=== PATIENT | female | born 1960 | race Caucasian/White ===

== ENCOUNTER 2018-07-10 12:33 | Emergency (ER) | payer MEDICARE, OTHER ==
[2018-07-10] MEDS ORDERED: SODIUM CHLORIDE 0.9% 1,000 ML IV STA (12:45)
[2018-07-10] MEDS ORDERED: LORazepam 2 MG/ML INJ IV STA (12:45)
[2018-07-10 13:04] VITALS: TEMP 98.3
--- NOTE | 2018-07-10 13:13 | ED ---
Seizure HPI - General Chief Complaint: Seizure Stated Complaint: Med withdrawals Time Seen by Provider: 07/10/18 12:36 Source: patient, EMS, RN notes reviewed Mode of arrival: EMS Limitations: altered mental status - History of Present Illness Initial Comments: 57-year-old female presents emergency department via EMS for tremoring, possible medication reaction, possible seizure. Patient is altered, confused at this time. Patient reportedly was seen at [facility] on the weekend for a seizure. Patient unable to provide information at this time as she presented post ictal, seizure. Patient reportedly does have a history of alcohol or drug abuse. Unclear what medications she is currently taking. - Related Data Home Medications Medication Instructions Recorded Confirmed Dextroamphetamine/Amphetamine 20 mg PO QAM 07/10/18 07/10/18 [Adderall Xr] Gabapentin 800 mg PO TID 07/10/18 07/10/18 Levothyroxine Sodium [Synthroid] 112 mcg PO DAILY 07/10/18 07/10/18 OXcarbazepine [Trileptal] 150 mg PO BID 07/10/18 07/10/18 Spironolactone 50 mg PO DAILY 07/10/18 07/10/18 Allergies Allergy/AdvReac Type Severity Reaction Status Date / Time No Known Allergies Allergy Unverified 07/10/18 13:55 Review of Systems ROS Statement: Those systems with pertinent positive or pertinent negative responses have been documented in the HPI. ROS Other: All systems not noted in ROS Statement are negative. Past Medical History Past Medical History: Thyroid Disorder Additional Past Medical History / Comment(s): anxiety History of Any Multi-Drug Resistant Organisms: Unobtainable Past Surgical History: Unable to Obtain Past Psychological History: Unable to Obtain Smoking Status: Current every day smoker Past Alcohol Use History: Daily Past Drug Use History: None Reported General Exam Limitations: altered mental status (Postictal) General appearance: alert, in no apparent distress Head exam: Present: atraumatic, normocephalic, normal inspection Eye exam: Present: normal appearance, PERRL, EOMI. Absent: scleral icterus, conjunctival injection, periorbital swelling ENT exam: Present: normal exam, normal oropharynx, mucous membranes moist, TM's normal bilaterally Neck exam: Present: normal inspection, full ROM. Absent: tenderness, meningismus, lymphadenopathy Respiratory exam: Present: normal lung sounds bilaterally. Absent: respiratory distress, wheezes, rales, rhonchi, stridor Cardiovascular Exam: Present: regular rate, normal rhythm, normal heart sounds. Absent: systolic murmur, diastolic murmur, rubs, gallop, clicks GI/Abdominal exam: Present: soft, normal bowel sounds. Absent: distended, tenderness, guarding, rebound, rigid Neurological exam: Present: alert, other (Repeat neuro exam was performed after patient was orientated. Patient is awake alert and oriented 3 cranial nerves II through XII intact, finger to nose intact without over shooting). Absent: oriented X3, CN II-XII intact Skin exam: Present: warm, dry, intact, normal color. Absent: rash Course Vital Signs 07/10/18 07/10/18 07/10/18 12:45 13:54 14:00 Temperature 98.3 F Pulse Rate 67 87 86 Respiratory 18 18 17 Rate Blood Pressure 198/90 140/79 O2 Sat by Pulse 94 L 93 L Oximetry - Reevaluation(s) Reevaluation #1: 07/10/18 16:01 I did discuss patient's history with PCP who states that she does have a history of hypertension, hypothyroidism and alcohol abuse. She states that there is no history of seizures though she believes that she may have had alcohol withdrawal in the past. Patient is off-and-on was seen her PCP secondary to insurance reasons. She states Frequently that her thyroid levels are off secondary to medication noncompliance. Patient does have a history of psychiatric disorders. Medical Decision Making - Medical Decision Making 57-year-old female presented for seizure, tremoring. Patient did have tonic clonic seizure in the emergency department. I did discuss the case with her PCP no history of seizures she does have a history of hypothyroidism, hypertension and alcohol abuse though the patient states she has been sober. Patient case discussed with Dr. horowitz on-call for Dr. Chappell who recommends the patient to be transferred for neurology evaluation. Patient is started on Keppra at this time. - Lab Data Result diagrams: 07/10/18 13:13 07/10/18 13:13 Lab Results 07/10/18 07/10/18 07/10/18 Range/Units 13:13 13:13 15:53 WBC 7.1 (3.8-10.6) k/uL RBC 4.36 (3.80-5.40) m/uL Hgb 13.8 (11.4-16.0) gm/dL Hct 43.7 (34.0-46.0) % MCV 100.4 H (80.0-100.0) fL MCH 31.6 (25.0-35.0) pg MCHC 31.5 (31.0-37.0) g/dL RDW 14.0 (11.5-15.5) % Plt Count 344 (150-450) k/uL Neutrophils % 67 % Lymphocytes % 20 % Monocytes % 5 % Eosinophils % 3 % Basophils % 1 % Neutrophils # 4.8 (1.3-7.7) k/uL Lymphocytes # 1.4 (1.0-4.8) k/uL Monocytes # 0.4 (0-1.0) k/uL Eosinophils # 0.2 (0-0.7) k/uL Basophils # 0.0 (0-0.2) k/uL Macrocytosis Slight Sodium 139 (137-145) mmol/L Potassium 4.4 (3.5-5.1) mmol/L Chloride 106 (98-107) mmol/L Carbon Dioxide 18 L (22-30) mmol/L Anion Gap 15 mmol/L BUN 8 (7-17) mg/dL Creatinine 0.63 (0.52-1.04) mg/dL Est GFR (CKD-EPI)AfAm >90 (>60 ml/min/1.73 sqM) Est GFR (CKD-EPI)NonAf >90 (>60 ml/min/1.73 sqM) Glucose 95 (74-99) mg/dL Calcium 10.2 (8.4-10.2) mg/dL Total Bilirubin 0.5 (0.2-1.3) mg/dL AST 19 (14-36) U/L ALT 13 (9-52) U/L Alkaline Phosphatase 87 (38-126) U/L Total Protein 7.3 (6.3-8.2) g/dL Albumin 4.3 (3.5-5.0) g/dL Urine Color Yellow Urine Appearance Turbid H (Clear) Urine pH 6.0 (5.0-8.0) Ur Specific [place] 1.020 (1.001-1.035) Urine Protein 1+ H (Negative) Urine Glucose (UA) Negative (Negative) Urine Ketones Negative (Negative) Urine Blood Negative (Negative) Urine Nitrite Negative (Negative) Urine Bilirubin Negative (Negative) Urine Urobilinogen <2.0 (<2.0) mg/dL Ur Leukocyte Esterase Trace H (Negative) Urine RBC 2 (0-5) /hpf Urine WBC 7 H (0-5) /hpf Ur Squamous Epith Cells 54 H (0-4) /hpf Hyaline Casts 6 H (0-2) /lpf Urine Mucus Rare H (None) /hpf Phenytoin <3.0 ug/mL Valproic Acid <10.0 ug/mL Carbamazepine <3.0 ug/mL [place] <0.2 mmol/L Serum Alcohol <10 mg/dL Disposition Clinical Impression: Seizures Disposition: OTHER INSTITUTION NOT DEFINED Condition: Stable Referrals: None,Stated [REFERRING] - 1-2 days - Out of Hospital Transfer - Req. Specs Out of Hospital Transfer - Requested Specifics: Other Emergency Center ( [facility])
--- NOTE | 2018-07-10 13:38 | CT ---
EXAMINATION TYPE: CT brain wo con DATE OF EXAM: 07/10/2018 HISTORY: Headache and seizure activity. CT DLP: 1083.4 mGycm. Automated Exposure Control for Dose Reduction was Utilized. TECHNIQUE: CT scan of the head is performed without contrast. COMPARISON: None. FINDINGS: There is no acute intracranial hemorrhage or midline shift identified. Ventricles and sul ci are within normal limits in size for patient's age. Sifuentes-white matter differentiation is preserve d. Cerebellar tonsils are slightly low-lying but not greater than 5 mm inferiorly descended into the foramen magnum. The globes are intact and the visualized sinuses are clear. IMPRESSION: No acute intracranial hemorrhage or midline shift.
[2018-07-10 13:55] LABS: ALT 13 U/L (9-52); AST 19 U/L (14-36); Albumin 4.3 g/dL (3.5-5.0); Alcohol <10 mg/dL; Alkaline Phosphatase 87 U/L (38-126); Anion Gap 15 mmol/L; Blood Urea Nitrogen 8 mg/dL (7-17); Calcium 10.2 mg/dL (8.4-10.2); Carbamazepine (Tegretol) <3.0 ug/mL; Carbon Dioxide 18 mmol/L (22-30); Chloride 106 mmol/L (98-107); Glucose 95 mg/dL (74-99); Lithium <0.2 mmol/L; Phenytoin (Dilantin) <3.0 ug/mL; Potassium 4.4 mmol/L (3.5-5.1); Sodium 139 mmol/L (137-145); Total Bilirubin 0.5 mg/dL (0.2-1.3); Total Protein 7.3 g/dL (6.3-8.2)
[2018-07-10 13:58] LABS: Valproic Acid (Depakene) <10.0 ug/mL
[2018-07-10 14:00] LABS: Basophils % (A) 1 %; Eosinophils # (A) 0.2 k/uL (0-0.7); Eosinophils % (A) 3 %; HCT 43.7 % (34.0-46.0); HGB 13.8 gm/dL (11.4-16.0); Lymphocytes # (A) 1.4 k/uL (1.0-4.8); Lymphocytes % (A) 20 %; MCH 31.6 pg (25.0-35.0); MCHC 31.5 g/dL (31.0-37.0); MCV 100.4 fL (80.0-100.0); Macrocytosis Slight; Mean Platelet Volume 6.5; Monocytes # (A) 0.4 k/uL (0-1.0); Monocytes % (A) 5 %; Neutrophils # (A) 4.8 k/uL (1.3-7.7); Neutrophils % (A) 67 %; Platelet Count 344 k/uL (150-450); RBC 4.36 m/uL (3.80-5.40); WBC 7.1 k/uL (3.8-10.6)
[2018-07-10 16:12] LABS: Appearance,Urine Turbid (Clear); Bilirubin,Urine Negative (Negative); Blood,Urine Negative (Negative); Color,Urine Yellow; Glucose,Urine (UA) Negative (Negative); Hyaline Casts,Urine 6 /lpf (0-2); Ketones,Urine Negative (Negative); Leukocyte Esterase,Urine Trace (Negative); Mucus,Urine Rare /hpf; Nitrite,Urine Negative (Negative); Protein,Urine 1+ (Negative); RBC,Urine 2 /hpf (0-5); Squamous Epithelial Cell,Urine 54 /hpf (0-4); Urobilinogen,Urine <2.0 mg/dL (<2.0); WBC,Urine 7 /hpf (0-5)
[2018-07-10 16:18] LABS: Amphetamine Screen,Urine Detected (NotDetected); Barbiturate Screen,Urine Not Detected (NotDetected); Benzodiazepines Screen,Urine Detected (NotDetected); Cocaine Screen,Urine Not Detected (NotDetected); Methadone Screen, Urine Not Detected (NotDetected); Opiate Screen,Urine Not Detected (NotDetected); Oxycodone Screen, Urine Not Detected (NotDetected); Phencyclidine Screen,Urine Not Detected (NotDetected); Tricyclic Antidepressant,Urine Not Detected (NotDetected); Urn Cannabinoid Scrn Detected (NotDetected)
[2018-07-10] MEDS ORDERED: levETIRAcetam IV 1,000 MG in SALINE 1 100ML.BAG IVPB STA (16:18)
[2018-07-10 17:09] LABS: T4, Free (Free Thyroxine) 1.06 ng/dL (0.78-2.19)
[2018-07-10 17:21] VITALS: BP 113/69; PULSE 78; RESP 18
== END 2018-07-10 17:39 | disposition other institution (70) ==
LOC: EC 12:33
DX: R56.9 Unspecified convulsions (principal); I10 Essential (primary) hypertension; E03.9 Hypothyroidism, unspecified; F17.200 Nicotine dependence, unspecified, uncomplicated; Z91.14 Patient's other noncompliance with medication regimen; Z79.890 Hormone replacement therapy; Z79.899 Other long term (current) drug therapy
CPT/HCPCS: 36415; 84439; 80156; 80164; 80053; 84443; 80185; 80178; 85025; 81001; 80306; 70450; 99285; 96374; 96375; 96361; G0480; J2060; J1953; 80320

== ENCOUNTER 2022-07-04 18:58 | Emergency (ER) | payer MEDICARE ==
[2022-07-04 19:11] VITALS: TEMP 97.9
[2022-07-04] MEDS ORDERED: fentaNYL (PF) 50 MCG/ML 2 ML AMP IVP STA (19:12)
--- NOTE | 2022-07-04 20:07 | XR ---
EXAMINATION TYPE: XR femur RT, XR knee limited RT DATE OF EXAM: 07/04/2022 CLINICAL HISTORY: Fall injury with pain TECHNIQUE: Two views of the right leg and knee are obtained. COMPARISON: None. FINDINGS: Overlying board artifact is seen. There is acute comminuted displaced fracture of the dista l femoral metadiaphysis with fracture extending into the proximal component of the metallic right kne e prosthesis. Distal fracture fragments are impacted along with anteriorly and medially angulated. Th ere is fat fluid level in the suprapatellar joint space noted. No additional acute fractures are clearly seen in the proximal to mid femur or visualized tibia and p roximal fibula. IMPRESSION: As above.
--- NOTE | 2022-07-04 20:10 | CT ---
EXAMINATION TYPE: CT brain jacintoine wo con DATE OF EXAM: 07/04/2022 COMPARISON: CT brain July 10, 2018 HISTORY: Fall from standing up, no LOC. CT DLP: 1379.7 mGycm. Automated Exposure Control for Dose Reduction was Utilized. TECHNIQUE: CT scan of the head and cervical spine are performed without contrast. FINDINGS: There is no acute intracranial hemorrhage or midline shift identified. Mild ventricular a nd sulcal prominence. Sifuentes-white matter differentiation fairly well preserved. The calvarium is intac t. Paranasal sinuses are clear. Cervical spine is visualized in its entirety from C1 through upper thoracic levels and demonstrates d extroconvex scoliosis centered in the upper to mid thoracic spine without evidence of acute fracture or dislocation. Prevertebral soft tissue appears within normal limits. The C1-C2 articulation is wi thin normal limits on the coronal images. Vertebral body heights are maintained. Mild to moderate di sc space narrowing C5-C6 and C6-C7 levels with moderate anterior spurring is present. Review of axial images shows no apical pneumothorax. Thyroid gland is small in size. Prominent but subcentimeter lef t supraclavicular lymph nodes are seen. Correlate clinically. IMPRESSION: 1. There is no acute fracture or dislocation evident in the cervical spine. 2. No acute intracranial hemorrhage or midline shift is seen.
[2022-07-04] MEDS ORDERED: HYDROmorphone 1 MG/ML 1 ML SYRINGE IVP STA ×4 (20:12→22:47)
[2022-07-04] MEDS ORDERED: MIDAZOLAM 1 MG/ML 5 ML VIAL IV STA (21:05)
--- NOTE | 2022-07-04 21:35 | ED ---
General Adult HPI - General Chief complaint: Fall Stated complaint: fall, femur fracture Time Seen by Provider: 07/04/22 18:59 Source: patient, EMS Mode of arrival: EMS Limitations: no limitations - History of Present Illness Initial comments: This is a 61-year-old female that was sent into the department via EMS for a fall. The patient stated that she fell while slipping and landed on her right knee causing her right lower extremity to be angulated out 90 lateral to her body. The patient stated that she had significant extreme pain in the right k nee and did hit her head but did not lose consciousness. The patient stated she had significant extreme pain in the right knee. The patient did not have any difficulties with sensation and denied any numbness or tingling. The patient was resting in bed in significant distress secondary to right knee pain. - Related Data Home Medications Medication Instructions Recorded Confirmed Dextroamphetamine/Amphetamine 40 mg PO DAILY 07/10/18 07/04/22 [Adderall Xr] Gabapentin 800 mg PO TID 07/10/18 07/04/22 Levothyroxine Sodium [Synthroid] 112 mcg PO DAILY 07/10/18 07/04/22 OXcarbazepine [Trileptal] 150 mg PO BID 07/10/18 07/04/22 Albuterol Sulfate [Albuterol 2 puff PO RT-Q6H PRN 07/04/22 07/04/22 Sulfate Hfa] Escitalopram Oxalate [Lexapro] 20 mg PO DAILY 07/04/22 07/04/22 clonazePAM [KlonoPIN] 0.5 mg PO DAILY PRN 07/04/22 07/04/22 lisinopriL [Prinivil] 20 mg PO DAILY 07/04/22 07/04/22 traZODone HCL 300 mg PO HS 07/04/22 07/04/22 Allergies Allergy/AdvReac Type Severity Reaction Status Date / Time No Known Allergies Allergy Unverified 07/10/18 13:55 Review of Systems ROS Statement: Those systems with pertinent positive or pertinent negative responses have been documented in the HPI. ROS Other: All systems not noted in ROS Statement are negative. Past Medical History Past Medical History: Hypertension, Thyroid Disorder Additional Past Medical History / Comment(s): anxiety History of Any Multi-Drug Resistant Organisms: Unobtainable Past Surgical History: Unable to Obtain, Orthopedic Surgery Past Psychological History: Anxiety, Bipolar, Depression Smoking Status: Current every day smoker Past Alcohol Use History: Daily, Rare Past Drug Use History: None Reported General Exam Limitations: no limitations General appearance: alert, in distress (Secondary to right knee pain) Head exam: Present: atraumatic, normocephalic Eye exam: Present: normal appearance, PERRL Pupils: Present: normal accommodation ENT exam: Present: normal exam, normal oropharynx, mucous membranes moist Neck exam: Present: normal inspection, full ROM Respiratory exam: Present: normal lung sounds bilaterally Cardiovascular Exam: Present: regular rate, normal rhythm, normal heart sounds GI/Abdominal exam: Present: soft, normal bowel sounds Extremities exam: Present: other (Deformity noted to the right knee with crepitus and tenderness of patient to the possible portion of the right knee. Decreased range of motion secondary to pain.) Back exam: Present: normal inspection, full ROM Neurological exam: Present: alert, oriented X3, CN II-XII intact Psychiatric exam: Present: normal affect, normal mood Skin exam: Present: warm, dry Course Vital Signs 07/04/22 19:00 Temperature 97.9 F Pulse Rate 70 Respiratory 22 Rate Blood Pressure 140/80 O2 Sat by Pulse 100 Oximetry Medical Decision Making - Medical Decision Making Was pt. sent in by a medical professional or institution ([facility]all[facility], MACHINE ROPE MAKER, urgent care, hospital, or penitentiary...) When possible be specific @ -No Did you speak to anyone other than the patient for history (EMS, parent, family, police, friend...)? What history was obtained from this source @ -EMS, history of present illness Did you review nursing and triage notes (agree or disagree)? Why? @ -I reviewed and agree with nursing and triage notes Were old charts reviewed (outside hosp., previous admission, EMS record, old EKG, old radiological studies, urgent care reports/EKG's, penitentiary records)? Report findings @ -No old charts were reviewed Differential Diagnosis (chest pain, altered mental status, abdominal pain women, abdominal pain men, vaginal bleeding, weakness, fever, dyspnea, syncope, headache, dizziness, GI bleed, back pain, seizure, CVA, palpatations, mental health)? @ -Intracranial hemorrhage, right femur fracture, right tib-fib fracture EKG interpreted by me (3pts min.). @ -None X-rays interpreted by me (1pt min.). @ -X-ray of the right knee and right femur were obtained and I could not visualize the x-rays therefore I was not able to interpret the x-rays myself. X-ray read by the radiologist showed an acute comminuted displaced fracture of the distal femoral metadiaphysis with fracture extending into the proximal component of the metallic right knee prosthesis. There was distal fracture fragments that are impacted along with anteriorly and medially angulated. There is fat fluid level in the suprapatellar joint space noted. CT interpreted by me (1pt min.). @ -CT head and CT C-spine were obtained and were interpreted by the radiologist as negative. U/S interpreted by me (1pt. min.). @ -None done What testing was considered but not performed or refused? (CT, X-rays, U/S, labs)? Why? @ -None What meds were considered but not given or refused? Why? @ -None Did you discuss the management of the patient with other professionals (professionals i.e. , PA, MACHINE ROPE MAKER, lab, RT, psych nurse, social service worker, casting machine control board operator, teacher, naval gunfire liaison officer, case maker)? Give summary @ -The orthopedic surgeon application tester, Dr. Garcia was contacted regarding the patient and he did recommend transfer to [facility] for a higher level of care for a traumatic orthopedist. The accepting physician, Dr. De La Cruz was contacted and did accept the patient but wanted admitted to the trauma service with himself on consult. was also contacted at 2112 and accepted the patient for transfer. Was smoking cessation discussed for >3mins.? @ -Yes Was critical care preformed (if so, how long)? @ -No Were there social determinants of health that impacted care today? How? (Homelessness, low income, unemployed, alcoholism, drug addiction, transportation, low edu. Level, literacy, decrease access to med. care, correction, rehab)? @ -No Was there de-escalation of care discussed even if they declined (Discuss DNR or withdrawal of care, Hospice)? DNR status @ -No What co-morbidities impacted this encounter? (DM, HTN, Smoking, COPD, CAD, Cancer, CVA, ARF, Chemo, Hep., AIDS, mental health diagnosis, sleep apnea, morbid obesity)? @ -Seizure disorder, hypertension Was patient admitted / discharged? Hospital course, mention meds given and route, prescriptions, significant lab abnormalities, going to OR and other pertinent info. @ -The patient was seen and evaluated emergency department. Physical exam, the patient was in distress secondary to right knee pain. X-ray showed a comminuted fracture of the distal portion of the right knee however computed tomography scan of the head and C-spine were negative. Due to this significant injury, the orthopedic surgeon here application tester did recommend that the patient be transferred. The patient was accepted for transfer to [facility] emergency department at 2112. The patient did require multiple doses of pain medications in the emergency department and the right knee was immobilized per the request of the orthopedic surgeon. The patient remained stable and was transferred in stable condition. Undiagnosed new problem with uncertain prognosis? @ -No Drug Therapy requiring intensive monitoring for toxicity (Heparin, Nitro, Insulin, Cardizem)? @ -No Were any procedures done? @ -No Diagnosis/symptom? @ -Comminuted and angulated right distal femur fracture Acute, or Chronic, or Acute on Chronic? @ -Acute Uncomplicated (without systemic symptoms) or Complicated (systemic symptoms)? @ -Uncomplicated Side effects of treatment? @ -No Exacerbation, Progression, or Severe Exacerbation? @ -No Poses a threat to life or bodily function? How? (Chest pain, [place], [place], pneumonia, PE, COPD, DKA, ARF, appy, cholecystitis, CVA, Diverticulitis, Homicidal, Suicidal, threat to staff... and all critical care pts) @ -No Disposition Clinical Impression: Closed comminuted intra-articular fracture of distal femur, Fall Disposition: OTHER INSTITUTION NOT DEFINED Condition: Stable Is patient prescribed a controlled substance at d/c from ED?: No Referrals: Jann Dc MD [Primary Care Provider] - 1-2 days Time of Disposition: 21:13 - Out of Hospital Transfer - Req. Specs Out of Hospital Transfer - Requested Specifics: Other Emergency Center ([facility])
[2022-07-04 22:28] VITALS: BP 147/78; PULSE 62; RESP 20
== END 2022-07-04 23:11 | disposition other institution (70) ==
LOC: EC 18:58
DX: S72.351A Displaced comminuted fracture of shaft of right femur, initial encounter for closed fracture (principal); I10 Essential (primary) hypertension; F41.9 Anxiety disorder, unspecified; F31.9 Bipolar disorder, unspecified; E07.9 Disorder of thyroid, unspecified; Z79.890 Hormone replacement therapy; Z79.899 Other long term (current) drug therapy; W01.0XXA Fall on same level from slipping, tripping and stumbling without subsequent striking against object, initial encounter
CPT/HCPCS: 73552; 73560; 72125; 70450; 99285; 96374; 96375 ×2; 96376 ×2; J2250; J3010; J1170

== ENCOUNTER 2022-07-11 17:43 | Emergency (ER) | payer MEDICARE ==
[2022-07-11 17:58] VITALS: BP 168/83; PULSE 87; RESP 15; TEMP 98.3
--- NOTE | 2022-07-11 18:02 | ED ---
General Adult HPI - General Chief complaint: Recheck/Abnormal Lab/Rx Stated complaint: knee pain Time Seen by Provider: 07/11/22 17:53 Source: patient, EMS Mode of arrival: EMS Limitations: no limitations - History of Present Illness Initial comments: 61-year-old female past medical history of hypertension, daily alcohol abuse who presents to the emergency department from [facility]. She recently had a fall. Was seen in our emergency department and diagnosed with a distal femur fracture. She was transported down to [facility] that she needed a higher level of care. She received surgery. She was to be transferred to [facility] for rehab. She arrived there today without several scripts for her medications. [facility] did not want to accept the patient into the facility without a liver scripts and therefore they recommended that she be transferred back to the hospital. Patient did not want to go to [facility] and therefore was transferred to our facility. Patient has no complaints at this time. No other alleviating, precipitating or mottling factors - Related Data Home Medications Medication Instructions Recorded Confirmed Dextroamphetamine/Amphetamine 40 mg PO DAILY 07/10/18 07/04/22 [Adderall Xr] Gabapentin 800 mg PO TID 07/10/18 07/04/22 Levothyroxine Sodium [Synthroid] 112 mcg PO DAILY 07/10/18 07/04/22 OXcarbazepine [Trileptal] 150 mg PO BID 07/10/18 07/04/22 Albuterol Sulfate [Albuterol 2 puff PO RT-Q6H PRN 07/04/22 07/04/22 Sulfate Hfa] Escitalopram Oxalate [Lexapro] 20 mg PO DAILY 07/04/22 07/04/22 clonazePAM [KlonoPIN] 0.5 mg PO DAILY PRN 07/04/22 07/04/22 lisinopriL [Prinivil] 20 mg PO DAILY 07/04/22 07/04/22 traZODone HCL 300 mg PO HS 07/04/22 07/04/22 Allergies Allergy/AdvReac Type Severity Reaction Status Date / Time No Known Allergies Allergy Verified 07/11/22 17:57 Review of Systems ROS Statement: Those systems with pertinent positive or pertinent negative responses have been documented in the HPI. ROS Other: All systems not noted in ROS Statement are negative. Past Medical History Past Medical History: Hypertension, Thyroid Disorder Additional Past Medical History / Comment(s): anxiety History of Any Multi-Drug Resistant Organisms: None Reported Past Surgical History: Unable to Obtain, Orthopedic Surgery Past Psychological History: Anxiety, Bipolar, Depression Smoking Status: Current some day smoker Past Alcohol Use History: Rare Past Drug Use History: None Reported General Exam Limitations: no limitations General appearance: alert, in no apparent distress Head exam: Present: atraumatic, normocephalic, normal inspection Eye exam: Present: normal appearance, PERRL, EOMI. Absent: scleral icterus, conjunctival injection, periorbital swelling ENT exam: Present: normal exam, mucous membranes moist Neck exam: Present: normal inspection. Absent: tenderness, meningismus, lymphadenopathy Respiratory exam: Present: normal lung sounds bilaterally. Absent: respiratory distress, wheezes, rales, rhonchi, stridor Cardiovascular Exam: Present: regular rate, normal rhythm, normal heart sounds. Absent: systolic murmur, diastolic murmur, rubs, gallop, clicks GI/Abdominal exam: Present: soft, normal bowel sounds. Absent: distended, tenderness, guarding, rebound, rigid Extremities exam: Present: tenderness, normal capillary refill, other (knee immobilizer right knee). Absent: pedal edema, joint swelling, calf tenderness Back exam: Present: normal inspection Neurological exam: Present: alert, oriented X3, CN II-XII intact Psychiatric exam: Present: normal affect, normal mood Skin exam: Present: warm, dry, intact, normal color. Absent: rash Course Vital Signs 07/11/22 17:49 Temperature 98.3 F Pulse Rate 87 Respiratory 15 Rate Blood Pressure 168/83 O2 Sat by Pulse 97 Oximetry Medical Decision Making - Medical Decision Making Was pt. sent in by a medical professional or institution? ECF Did you speak to anyone other than the patient for history? ECF staff Did you review nursing and triage notes? yes and I agree Were old charts reviewed? yes, previous ER visit where patient was transported down Differential Diagnosis? medication prescription error EKG interpreted by me (3pts min.)? no X-rays interpreted by me (1pt min.)? no CT interpreted by me (1pt min.)? no U/S interpreted by me (1pt. min.)? no What testing was considered but not performed? (CT, X-rays, U/S, labs)? Why? none What meds were considered but not given? Why? none Did you discuss the management of the patient with other professionals? no Did you reconcile home meds? yes Was smoking cessation discussed for >3mins.? no Was critical care preformed (if so, how long)? no Were there social determinants of health that impacted care today? How? (Homelessness, low income, unemployed, alcoholism, drug addiction, transportation, low edu. Level, literacy, decrease access to med. care, half-way, rehab)? no Was there de-escalation of care discussed even if they declined? (Discuss DNR or withdrawal of care, Hospice)? no What co-morbidities impacted this encounter? (DM, HTN, Smoking, COPD, CAD, Cancer, CVA, Hep., AIDS, mental health diagnosis, sleep apnea, morbid obesity)? none Was patient admitted / discharged? Upon arrival patient was placed into room 6. I did offer to write prescriptions for the patient. Patient is refusing. She states that she has all these prescriptions at home. She states that she doesn't want to go to rehab. She wants me to discharge her home. I did inform the patient that should she need rehab in the future this would be really hard to obtain. Patient states she has all the accommodations at home that she needs. [place] that she will not be transferred back to [facility] at this time. She is of sound mind and capable of making her own decisions. Patient will leave AGAINST MEDICAL ADVICE. She does call a cab and leaves in stable condition Undiagnosed new problem with uncertain prognosis? no Drug Therapy requiring intensive monitoring for toxicity (Heparin, Nitro, Insulin, Cardizem)? no Were any procedures done? no Diagnosis/symptom? right femur fracture requiring rehab Acute, or Chronic, or Acute on Chronic? acute Uncomplicated (without systemic symptoms) or Complicated (systemic symptoms)? complicated Side effects of treatment? none Exacerbation, Progression, or Severe Exacerbation] no Poses a threat to life or bodily function? no Disposition Clinical Impression: Encounter for medication refill Disposition: Left Against Medical Advice Condition: Stable Additional Instructions: We recommended that we refill your prescription and send you back to rehab however your opting to go home. Your leaving knowing the risks of going home without any further care. Please follow-up with your orthopedic surgeon as directed and return for any new or worsening symptoms Is patient prescribed a controlled substance at d/c from ED?: No Referrals: Jann Dc MD [Primary Care Provider] - 1-2 days Time of Disposition: 18:02
== END 2022-07-11 18:12 | disposition left against medical advice (07) ==
LOC: EC 17:43
DX: I10 Essential (primary) hypertension (principal); E07.9 Disorder of thyroid, unspecified; F31.9 Bipolar disorder, unspecified; F41.9 Anxiety disorder, unspecified; F17.200 Nicotine dependence, unspecified, uncomplicated; Z76.0 Encounter for issue of repeat prescription; Z79.890 Hormone replacement therapy
CPT/HCPCS: 99282

== ENCOUNTER 2022-10-16 15:22 | Emergency (ER) | payer MEDICARE ==
[2022-10-16 15:32] VITALS: TEMP 99.5
--- NOTE | 2022-10-16 17:31 | ED ---
General Adult HPI - General Source: patient, RN notes reviewed Mode of arrival: EMS Limitations: no limitations <Sabine Hernandez - Last Filed: 10/16/22 17:31> - General Source: patient, RN notes reviewed Mode of arrival: EMS Limitations: no limitations <Kimberley Prater - Last Filed: 10/17/22 02:14> - General Chief complaint: Nausea/Vomiting/Diarrhea Stated complaint: N/V Time Seen by Provider: 10/16/22 17:31 - History of Present Illness Initial comments: 62-year-old female with no significant past medical history presents the emergency department via EMS with a chief complaint of nausea and vomiting times one month. She is complaining of accompanying symptoms of generalized abdominal pain. (Sabine Hernandez) When I went to evaluate the patient, states that she is getting to the point where she cannot stand the nausea anymore and she believes that it is getting worse. She is unable to keep down any of her medications and states that she has not taken them for a month. The only time that this has happened to her before was when she was diagnosed with hyperthyroidism. This has since been treated and she is now taking Synthroid. Describes the abdominal pain as cramping in the lower abdomen. Also reports generalized body aches and lightheadedness that she attributes to vomiting. Denies any sick contacts. She was given Zofran by EMS on route which she states was temporarily beneficial. Denies any fevers, chills, sore throat, cough, dyspnea, chest pain, palpitations, diarrhea, back pain, or headaches. (Kimberley Prater) - Related Data Home Medications Medication Instructions Recorded Confirmed Gabapentin 800 mg PO TID 07/10/18 10/16/22 OXcarbazepine [Trileptal] 300 mg PO DAILY 07/10/18 10/16/22 Albuterol Sulfate [Albuterol 2 puff PO RT-Q6H PRN 07/04/22 10/16/22 Sulfate Hfa] Escitalopram Oxalate [Lexapro] 20 mg PO DAILY 07/04/22 10/16/22 clonazePAM [KlonoPIN] 0.5 mg PO DAILY PRN 07/04/22 10/16/22 lisinopriL [Prinivil] 20 mg PO DAILY 07/04/22 10/16/22 traZODone HCL 300 mg PO HS 07/04/22 10/16/22 Cholecalciferol [Vitamin D3 (25 50 mcg PO DAILY 10/16/22 10/16/22 Mcg = 1000 Iu)] Levothyroxine Sodium [Synthroid] 125 mcg PO DAILY 10/16/22 10/16/22 guanFACINE HCL [Intuniv] 2 mg PO DAILY 10/16/22 10/16/22 methocarbamoL [Robaxin] 500 mg PO TID PRN 10/16/22 10/16/22 traMADol HCl [Ultram] 50 mg PO Q6HR PRN 10/16/22 10/16/22 Previous Rx's Medication Instructions Recorded Meloxicam 7.5 mg PO DAILY PRN #15 tablet 10/16/22 Metoclopramide [Reglan] 10 mg PO Q6H PRN #20 tab 10/16/22 Ondansetron Odt [Zofran Odt] 4 mg PO Q8HR PRN #20 tab 10/16/22 Allergies Allergy/AdvReac Type Severity Reaction Status Date / Time No Known Allergies Allergy Verified 10/16/22 21:22 Review of Systems ROS Other: All systems not noted in ROS Statement are negative. <Sabine Hernandez - Last Filed: 10/16/22 17:31> ROS Other: All systems not noted in ROS Statement are negative. <Kimberley Prater - Last Filed: 10/17/22 02:14> ROS Statement: Those systems with pertinent positive or pertinent negative responses have been documented in the HPI. Past Medical History Past Medical History: Hypertension, Thyroid Disorder Additional Past Medical History / Comment(s): anxiety History of Any Multi-Drug Resistant Organisms: None Reported Past Surgical History: Unable to Obtain, Orthopedic Surgery Past Psychological History: ADD/ADHD, Anxiety, Bipolar, Depression Smoking Status: Current some day smoker Past Alcohol Use History: Rare Past Drug Use History: Marijuana <Sabine Hernandez - Last Filed: 10/16/22 17:31> General Exam Limitations: no limitations <Sabine Hernandez - Last Filed: 10/16/22 17:31> Limitations: no limitations General appearance: alert, in no apparent distress Head exam: Present: atraumatic, normocephalic, normal inspection Respiratory exam: Present: normal lung sounds bilaterally. Absent: respiratory distress, wheezes, rales, rhonchi, stridor Cardiovascular Exam: Present: regular rate, normal rhythm, normal heart sounds. Absent: systolic murmur, diastolic murmur, rubs, gallop, clicks GI/Abdominal exam: Present: soft, tenderness (diffuse), normal bowel sounds. Absent: distended Neurological exam: Present: alert, oriented X3, CN II-XII intact Psychiatric exam: Present: normal affect, normal mood Skin exam: Present: warm, dry, intact, normal color. Absent: rash <Kimberley Prater - Last Filed: 10/17/22 02:14> - General Exam Comments Initial Comments: Visual Physical Exam Vital signs reviewed General: Well-appearing, nontoxic, no acute distress. Head: Normocephalic, atraumatic Eyes: PERRLA, EOMI ENT: Airway patent Chest: Nonlabored breathing Skin: No visual rash, normal skin tone Neuro: Alert and oriented 3 Musculoskeletal: No gross abnormalities (Sabine Hernandez) Course Vital Signs 10/16/22 10/16/22 10/17/22 15:28 20:19 00:48 Temperature 99.5 F Pulse Rate 73 72 Pulse Rate [ 75 Pulse Oximetery ] Respiratory 18 14 14 Rate Blood Pressure 208/93 172/83 Blood Pressure 178/84 [Left Arm] O2 Sat by Pulse 99 98 96 Oximetry Medical Decision Making - Lab Data Result diagrams: 10/16/22 20:11 10/16/22 20:11 <Kimberley Prater - Last Filed: 10/17/22 02:14> - Medical Decision Making This is a 62-year-old female who presents to the emergency department for abdominal pain, nausea, and vomiting Was pt. sent in by a medical professional or institution? @ -No Did you speak to anyone other than the patient for history? @ -No Did you review nursing and triage notes? @ -Yes, and I agree, it is accurate with regards to the patient's symptoms. Were old charts reviewed? @ -No Differential Diagnosis? @ -Differential Abdominal Pain Women: Appendicitis, Cholecystitis, diverticulosis, ischemic bowel, pancreatitis, hepatitis, UTI, gastroenteritis, AAA, incarcerated hernia, bowel obstruction, constipation, inflammatory bowel, hepatitis, peptic ulcer disease, splenic infarction, perforated viscus, vulvitis, ovarian torsion, PID, kidney stone, placenta abruption, this is not meant to be an all-inclusive list What testing was considered but not performed? (CT, X-rays, U/S, labs)? Why? @ -There was discussion of a computed tomography scan of the abdomen and pelvis, however because symptoms have been present for a month, there is no localized pain, and there is no evidence of leukocytosis on her lab work, this was deferred at this at this time. What meds were considered but not given? Why? @ -None Did you discuss the management of the patient with other professionals? @ -No Did you reconcile home meds? @ -No Was smoking cessation discussed for >3mins.? @ -No Was critical care preformed (if so, how long)? @ -No Were there social determinants of health that impacted care today? How? (Homelessness, low income, unemployed, alcoholism, drug addiction, transportation, low edu. Level, literacy, decrease access to med. care, correction, rehab)? @ -No Was there de-escalation of care discussed even if they declined? (Discuss DNR or withdrawal of care, Hospice)? @ -No What co-morbidities impacted this encounter? (DM, HTN, Smoking, COPD, CAD, Cancer, CVA, Hep., AIDS, mental health diagnosis, sleep apnea, morbid obesity)? @ -HTN, thyroid disorder Was patient admitted / discharged? @ -Discharged. Lab work obtained revealing hyponatremia and was otherwise nonactionable. Patient does use marijuana regularly and it is possible that a component of this is related to cannabinoid hyperemesis syndrome. She was given IV fluids and symptoms were well controlled in the emergency department. She wa s able to tolerate oral intake with water and crackers. Prescription for Zofran and Reglan provided with dosing instructions reviewed. Prescriptions for both the Zofran and Reglan were provided due to the somewhat difficult nature in controlling her nausea and vomiting. Advised she start with the Zofran, and if that is not effective, she can try the Reglan, and if needed, alternate with both medications. She is also instructed to slowly advance her diet as tolerated and remain well-hydrated. Prescription for Mobic provided. Advised that she can see if this is more beneficial than ibuprofen for managing her pain. Advised that she cannot take the Mobic with any other anti-inflammatories and to only take it with Tylenol. She is instructed to follow-up with her primary care provider this week for reevaluation of ongoing symptoms. Patient also educated on the possibility of cannabinoid hyperemesis syndrome and that she should reduce her marijuana intake to see if symptoms improve. Undiagnosed new problem with uncertain prognosis? @ -None Drug Therapy requiring intensive monitoring for toxicity (Heparin, Nitro, Insulin, Cardizem)? @ -None Were any procedures done? @ -None Diagnosis/symptom? @ -Nausea and vomiting, hyponatremia Acute, or Chronic, or Acute on Chronic? @ -Acute Uncomplicated (without systemic symptoms) or Complicated (systemic symptoms)? @ -Uncomplicated Side effects of treatment? @ -None Exacerbation, Progression, or Severe Exacerbation] @ -Not applicable Poses a threat to life or bodily function? @ -No Return precautions reviewed in depth, the patient is instructed to return to the emergency department with any new, worsening, or concerning symptoms. Patient verbalized understanding. This case was discussed in detail with the attending ED physician, Dr. Kay. Presentation, findings, and treatment plan discussed in detail as well. (Kimberley Prater) - Lab Data Lab Results 10/16/22 10/16/22 10/16/22 Range/Units 20:11 20:11 20:11 WBC 8.0 (3.8-10.6) k/uL RBC 4.63 (3.80-5.40) m/uL Hgb 14.9 (11.4-16.0) gm/dL Hct 43.5 (34.0-46.0) % MCV 94.0 (80.0-100.0) fL MCH 32.1 (25.0-35.0) pg MCHC 34.2 (31.0-37.0) g/dL RDW 12.9 (11.5-15.5) % Plt Count 320 (150-450) k/uL MPV 6.6 Neutrophils % 68 % Lymphocytes % 19 % Monocytes % 7 % Eosinophils % 3 % Basophils % 1 % Neutrophils # 5.4 (1.3-7.7) k/uL Lymphocytes # 1.5 (1.0-4.8) k/uL Monocytes # 0.6 (0-1.0) k/uL Eosinophils # 0.2 (0-0.7) k/uL Basophils # 0.0 (0-0.2) k/uL Sodium 127 L (137-145) mmol/L Potassium 4.5 (3.5-5.1) mmol/L Chloride 91 L (98-107) mmol/L Carbon Dioxide 24 (22-30) mmol/L Anion Gap 12 mmol/L BUN 12 (7-17) mg/dL Creatinine 0.50 L (0.52-1.04) mg/dL Est GFR (CKD-EPI)AfAm >90 (>60 ml/min/1.73 sqM) Est GFR (CKD-EPI)NonAf >90 (>60 ml/min/1.73 sqM) Glucose 96 (74-99) mg/dL Plasma Lactic Acid Johann (0.7-2.0) mmol/L Calcium 10.0 (8.4-10.2) mg/dL Total Bilirubin 0.6 (0.2-1.3) mg/dL AST 21 (14-36) U/L ALT 13 (4-34) U/L Alkaline Phosphatase 121 (38-126) U/L Total Protein 7.8 (6.3-8.2) g/dL Albumin 4.8 (3.5-5.0) g/dL Amylase 46 (30-110) U/L Lipase 44 (23-300) U/L TSH 7.930 H (0.465-4.680) mIU/L Free T4 1.10 (0.78-2.19) ng/dL Urine Color Urine Appearance (Clear) Urine pH (5.0-8.0) Ur Specific Hancock (1.001-1.035) Urine Protein (Negative) Urine Glucose (UA) (Negative) Urine Ketones (Negative) Urine Blood (Negative) Urine Nitrite (Negative) Urine Bilirubin (Negative) Urine Urobilinogen (<2.0) mg/dL Ur Leukocyte Esterase (Negative) Urine RBC (0-5) /hpf Urine WBC (0-5) /hpf Ur Squamous Epith Cells (0-4) /hpf Urine Bacteria (None) /hpf Hyaline Casts (0-2) /lpf Urine Mucus (None) /hpf Urine Opiates Screen (NotDetected) Ur Oxycodone Screen (NotDetected) Urine Methadone Screen (NotDetected) Ur Propoxyphene Screen (NotDetected) Ur Barbiturates Screen (NotDetected) U Tricyclic Antidepress (NotDetected) Ur Phencyclidine Scrn (NotDetected) Ur Amphetamines Screen (NotDetected) U Methamphetamines Scrn (NotDetected) U Benzodiazepines Scrn (NotDetected) Urine Cocaine Screen (NotDetected) U Marijuana (THC) Screen (NotDetected) Influenza Type A (PCR) Not Detected (Not Detectd) Influenza Type B (PCR) Not Detected (Not Detectd) RSV (PCR) Not Detected (Not Detectd) SARS-CoV-2 (PCR) Not Detected (Not Detectd) 10/16/22 10/16/22 10/16/22 Range/Units 20:11 21:14 21:14 WBC (3.8-10.6) k/uL RBC (3.80-5.40) m/uL Hgb (11.4-16.0) gm/dL Hct (34.0-46.0) % MCV (80.0-100.0) fL MCH (25.0-35.0) pg MCHC (31.0-37.0) g/dL RDW (11.5-15.5) % Plt Count (150-450) k/uL MPV Neutrophils % % Lymphocytes % % Monocytes % % Eosinophils % % Basophils % % Neutrophils # (1.3-7.7) k/uL Lymphocytes # (1.0-4.8) k/uL Monocytes # (0-1.0) k/uL Eosinophils # (0-0.7) k/uL Basophils # (0-0.2) k/uL Sodium (137-145) mmol/L Potassium (3.5-5.1) mmol/L Chloride (98-107) mmol/L Carbon Dioxide (22-30) mmol/L Anion Gap mmol/L BUN (7-17) mg/dL Creatinine (0.52-1.04) mg/dL Est GFR (CKD-EPI)AfAm (>60 ml/min/1.73 sqM) Est GFR (CKD-EPI)NonAf (>60 ml/min/1.73 sqM) Glucose (74-99) mg/dL Plasma Lactic Acid Johann 0.8 (0.7-2.0) mmol/L Calcium (8.4-10.2) mg/dL Total Bilirubin (0.2-1.3) mg/dL AST (14-36) U/L ALT (4-34) U/L Alkaline Phosphatase (38-126) U/L Total Protein (6.3-8.2) g/dL Albumin (3.5-5.0) g/dL Amylase (30-110) U/L Lipase (23-300) U/L TSH (0.465-4.680) mIU/L Free T4 (0.78-2.19) ng/dL Urine Color Yellow Urine Appearance Clear (Clear) Urine pH 6.0 (5.0-8.0) Ur Specific Hancock 1.017 (1.001-1.035) Urine Protein 1+ H (Negative) Urine Glucose (UA) Negative (Negative) Urine Ketones 1+ H (Negative) Urine Blood Negative (Negative) Urine Nitrite Negative (Negative) Urine Bilirubin Negative (Negative) Urine Urobilinogen <2.0 (<2.0) mg/dL Ur Leukocyte Esterase Negative (Negative) Urine RBC <1 (0-5) /hpf Urine WBC 2 (0-5) /hpf Ur Squamous Epith Cells 1 (0-4) /hpf Urine Bacteria Occasional H (None) /hpf Hyaline Casts 1 (0-2) /lpf Urine Mucus Rare H (None) /hpf Urine Opiates Screen Not Detected (NotDetected) Ur Oxycodone Screen Not Detected (NotDetected) Urine Methadone Screen Not Detected (NotDetected) Ur Propoxyphene Screen Not Detected (NotDetected) Ur Barbiturates Screen Not Detected (NotDetected) U Tricyclic Antidepress Not Detected (NotDetected) Ur Phencyclidine Scrn Not Detected (NotDetected) Ur Amphetamines Screen Not Detected (NotDetected) U Methamphetamines Scrn Not Detected (NotDetected) U Benzodiazepines Scrn Not Detected (NotDetected) Urine Cocaine Screen Not Detected (NotDetected) U Marijuana (THC) Screen Detected H (NotDetected) Influenza Type A (PCR) (Not Detectd) Influenza Type B (PCR) (Not Detectd) RSV (PCR) (Not Detectd) SARS-CoV-2 (PCR) (Not Detectd) Disposition <Sabine Hernandez - Last Filed: 10/16/22 17:31> Is patient prescribed a controlled substance at d/c from ED?: No <FanynjamelKimberley - Last Filed: 10/17/22 02:14> Clinical Impression: Nausea and vomiting, Hyponatremia Disposition: HOME SELF-CARE Instructions (If sedation given, give patient instructions): Acute Nausea and Vomiting (ED) Additional Instructions: Return to the emergency department with any new, worsening, or concerning symptoms. Take either ibuprofen or the meloxicam prescribed for the pain. Take one or the other, do not take them together. You may take Tylenol with either of them. Start with the Zofran for the nausea. If that is not effective, you can try the Reglan. If that is not effective, you can alternate with the medication. Make sure that you remain well hydrated and slowly advance your diet as tolerated. Follow up with your primary care provider in 1-2 days. Prescriptions: Meloxicam 7.5 mg PO DAILY PRN #15 tablet PRN Reason: Pain Metoclopramide [Reglan] 10 mg PO Q6H PRN #20 tab PRN Reason: Nausea And Vomiting Ondansetron Odt [Zofran Odt] 4 mg PO Q8HR PRN #20 tab PRN Reason: Nausea And Vomiting Referrals: Jann Dc MD [Primary Care Provider] - 1-2 days
[2022-10-16] MEDS ORDERED: SODIUM CHLORIDE 0.9% 1,000 ML IV STA ×2 (19:11→23:30)
[2022-10-16] MEDS ORDERED: KETOROLAC 15 MG/ML 1 ML VIAL IVP STA (19:11)
[2022-10-16] MEDS ORDERED: ONDANSETRON 4 MG/2 ML VIAL IVP STA (19:11)
[2022-10-16 20:19] LABS: Basophils % (A) 1 %; Eosinophils # (A) 0.2 k/uL (0-0.7); Eosinophils % (A) 3 %; HCT 43.5 % (34.0-46.0); HGB 14.9 gm/dL (11.4-16.0); Lymphocytes # (A) 1.5 k/uL (1.0-4.8); Lymphocytes % (A) 19 %; MCH 32.1 pg (25.0-35.0); MCHC 34.2 g/dL (31.0-37.0); Mean Platelet Volume 6.6; Monocytes # (A) 0.6 k/uL (0-1.0); Monocytes % (A) 7 %; Neutrophils # (A) 5.4 k/uL (1.3-7.7); Neutrophils % (A) 68 %; Platelet Count 320 k/uL (150-450); RBC 4.63 m/uL (3.80-5.40); RDW 12.9 % (11.5-15.5)
[2022-10-16 20:21] VITALS: RESP 14
[2022-10-16 20:32] LABS: ALT 13 U/L (4-34); AST 21 U/L (14-36); African American GFR (CKD) >90 (>60 ml/min/1.73 sqM); Albumin 4.8 g/dL (3.5-5.0); Alkaline Phosphatase 121 U/L (38-126); Amylase 46 U/L (30-110); Anion Gap 12 mmol/L; Blood Urea Nitrogen 12 mg/dL (7-17); Carbon Dioxide 24 mmol/L (22-30); Chloride 91 mmol/L (98-107); Glucose 96 mg/dL (74-99); Lipase 44 U/L (23-300); Non-African American GFR(CKD) >90 (>60 ml/min/1.73 sqM); Potassium 4.5 mmol/L (3.5-5.1); Sodium 127 mmol/L (137-145); Total Bilirubin 0.6 mg/dL (0.2-1.3); Total Protein 7.8 g/dL (6.3-8.2)
[2022-10-16] MEDS ORDERED: HALOPERIDOL LACTATE 5 MG/ML 1 ML VIAL IVP ONE (20:52)
[2022-10-16] MEDS ORDERED: MORPHINE SULFATE 2 MG/ML SYRINGE IVP STA (20:52)
[2022-10-16 21:24] LABS: Appearance,Urine Clear (Clear); Bacteria,Urine Occasional /hpf; Bilirubin,Urine Negative (Negative); Blood,Urine Negative (Negative); Color,Urine Yellow; Glucose,Urine (UA) Negative (Negative); Hyaline Casts,Urine 1 /lpf (0-2); Ketones,Urine 1+ (Negative); Leukocyte Esterase,Urine Negative (Negative); Mucus,Urine Rare /hpf; Nitrite,Urine Negative (Negative); Protein,Urine 1+ (Negative); RBC,Urine <1 /hpf (0-5); Specific Gravity,Urine 1.017 (1.001-1.035); Squamous Epithelial Cell,Urine 1 /hpf (0-4); Urobilinogen,Urine <2.0 mg/dL (<2.0); WBC,Urine 2 /hpf (0-5)
[2022-10-16] MEDS ORDERED: METOCLOPRAMIDE 5 MG/ML 2 ML VIAL IVP STA (21:27)
[2022-10-16] MEDS ORDERED: FAMOTIDINE 20 MG/2 ML VIAL IV STA (21:27)
[2022-10-16] MEDS ORDERED: ORPHENADRINE 30 MG/ML 2 ML VIAL IVP STA (21:27)
[2022-10-16 21:29] LABS: Amphetamine Screen,Urine Not Detected (NotDetected); Barbiturate Screen,Urine Not Detected (NotDetected); Benzodiazepines Screen,Urine Not Detected (NotDetected); Cocaine Screen,Urine Not Detected (NotDetected); Methadone Screen, Urine Not Detected (NotDetected); Opiate Screen,Urine Not Detected (NotDetected); Oxycodone Screen, Urine Not Detected (NotDetected); Phencyclidine Screen,Urine Not Detected (NotDetected); Tricyclic Antidepressant,Urine Not Detected (NotDetected); Urn Cannabinoid Scrn Detected (NotDetected)
[2022-10-16] MEDS ORDERED: IBUPROFEN 600 MG STARTER PACK 4 TAB BTL PO STA (23:14)
[2022-10-16] MEDS ORDERED: ACET/COD 300 MG/30 MG STARTER PACK 6 TAB BTL PO STA (23:14)
[2022-10-16] MEDS ORDERED: ONDANSETRON 4 MG ODT STARTER PACK 2 TAB BTL PO STA (23:14)
[2022-10-16] MEDS ORDERED: CYCLOBENZAPRINE 10MG STARTER 3 TAB BTL PO STA (23:15)
[2022-10-17 00:49] VITALS: BP 172/83; PULSE 72
== END 2022-10-17 00:50 | disposition home or self-care (01) ==
LOC: EC 15:22
DX: E87.1 Hypo-osmolality and hyponatremia (principal); R11.2 Nausea with vomiting, unspecified; I10 Essential (primary) hypertension; E07.9 Disorder of thyroid, unspecified; F41.9 Anxiety disorder, unspecified; F31.9 Bipolar disorder, unspecified; F17.200 Nicotine dependence, unspecified, uncomplicated; F12.90 Cannabis use, unspecified, uncomplicated; Z79.890 Hormone replacement therapy; Z79.899 Other long term (current) drug therapy; Z20.822 Contact with and (suspected) exposure to COVID-19
CPT/HCPCS: 36415; 84439; 80053; 84443; 82150; 83605; 83690; 85025; 81001; 80306; 87636; 99284; 96374; 96375 ×6; 96361; J1630; J2360; J2765; J2405; J2270; J1885; S0119

== ENCOUNTER → 2023-02-19 | Outpatient (CLI) | payer MEDICARE, OTHER ==
--- NOTE | 2023-02-19 12:32 | CTL ---
EXAMINATION TYPE: CT Low Dose Lung DATE OF EXAM ORDERED: 02/19/2023 HISTORY: . Lung cancer screening CT DLP: 94.[address] CTDI: 2.8 mGy Automated exposure control for dose reduction was used. SCREENING VISIT: COMPARISON: TECHNIQUE: Low dose computed tomography scan was performed through the chest at 1 mm thick sections a nd reconstructed images in multiple planes at 1 mm and [address] DIAGNOSTIC QUALITY: Satisfactory FINDINGS: Biapical pleural thickening or scarring. Paraseptal changes in the lung apex. There is a sub-5 mm subpleural nodules in the upper lobes have a benign appearance. There is a 3 mm n odule axial image 147 measuring 3 mm in a nara-fissural location. No evidence of solid bony thorax. Additional areas of subsegmental consolidation scarring atelectasis Atherosclerotic changes of the aorta. Measures a maximum dimension of 3.6 cm. Mild cardiomegaly. Mild calcification aortic valve. No pathologic adenopathy by contrast. There is a large hiatal hernia. Hypertrophic degenerative corona es spine. IMPRESSION: 1. Subpleural less than 5 mm pulmonary nodularity as a benign appearance. 2. Large hiatal hernia. CT LUNG RAD AND CT CHEST RECOMMENDATION: Lung-Rad 2 Benign Appearance or Behavior: Continue annual sc reening with LDCT in 12 months.
--- NOTE | 2023-02-19 13:41 | BD ---
EXAMINATION TYPE: Axial Bone Density DATE OF EXAM: 02/19/2023 CLINICAL HISTORY: 62 years old Female. ICD-10 CODE: [id number] SCREENING Height: 66 Weight: 183.9 FRAX RISK QUESTIONS: Alcohol (3 or more units per day): no Family History (Parent hip fracture): no Glucocorticoids (More than 3mos): no History of Fracture in Adulthood: yes Secondary Osteoporosis: 1. Type 1 Diabetes: no 2. Hyperthyroidism: before thyroid was removed 3. Menopause before 45: no 4. Malnutrition: no 5. Chronic liver disease: no Rheumatoid Arthritis: no Current Tobacco Use: no RISK FACTORS HISTORY OF: Hip Fracture (Right/Left): no Spine Fracture: no History of Wrist Fracture: no Surgery to Spine/Hip(right/left)/Wrist (right/left): Femur Fx 2022, L-4 L5 Fusion 1997 Family History of Osteoporosis: no Active: no Diet low in dairy products/other sources of calcium: no Postmenopausal woman: yes Take estrogen and/or progesterone medications: no Lost more than 2 inches in height since high school: yes Frequent falls: yes Poor Health: no Hyperparathyroidism: Previously, radiation 1999 Adrenal Insufficiency: no MEDICATIONS: Prednisone or other steroids: no Thyroid Medications: Synthroid since 1999 Osteoporosis Medications: no Additional Medications: BP Meds, Depression Meds, Reflux Meds, Additional History: EXAM MEASUREMENTS: Bone mineral density about the R hip (g/cm2): Bone mineral density about the L hip (g/cm2): T Score values are as follows: -----L Neck: -1.8 -----L Total: -1.9 Z Score values are as follows: -----L Neck: -1.0 -----L Total: -1.4 Baseline Study Bone mineral density about the L Wrist (g/cm2): 0.643 T Score values are as follows: -----Dist. R+U: -1.6 -----Prox. R+U: 0.2 -----Radius total: -0.5 Z Score values are as follows: -----Dist. R+U: -0.6 -----Prox. R+U: 1.1 -----Radius total: 0.4 Baseline Study FRAX%s: The graph provided illustrates a 15.1% chance for a major osteoporotic fx and a 1.7% chance f or the hips probability for fx in 10 years time. IMPRESSION: Osteopenia (T Score between -2.5 and -1). There is slightly increased risk of fracture and the patient may be considered for treatment. Re-Screen 2-5 years. NOTE: T-SCORE=SD OF THE YOUNG ADULT MEAN.
--- NOTE | 2023-02-21 08:15 | MM ---
Reason for Exam: Screening (asymptomatic). Last mammogram was performed 3 year(s) and 1 month(s) ago. Patient History: Menarche at age 14. First Full-Term at age 28. Postmenopausal. Patient has history of breast feeding. Paternal aunt had breast cancer at or over age 50. Paternal cousin had breast cancer at or over age 50. Paternal cousin had breast cancer at or over age 50. Sister had breast cancer at or over age 50. Risk Values: Melonie 5 year model risk: 2.8%. NCI Lifetime model risk: 13.9%. Prior Study Comparison: 09/27/2016 Bilateral Screening Mammogram, [facility]. 01/05/2020 Bilateral Screening Mammogram, [facility]. Tissue Density: The breast tissue is heterogeneously dense. This may lower the sensitivity of mammography. Findings: Analyzed By CAD. There is no suspicious group of microcalcifications or new suspicious mass in either breast. Overall Assessment: Benign, BI-RAD 2 Management: Screening Mammogram of both breasts in 1 year. . Patient should continue monthly self-breast exams. A clinical breast exam by your physician is recommended on an annual basis. This exam should not preclude additional follow-up of suspicious palpable abnormalities. Note on Melonie scores and lifetime risk: 1. A Melonie score greater than 3% is considered moderate risk. If this is the case, consider specialist referral to assess eligibility for a risk reducing agent. 2. If overall lifetime risk for the development of breast cancer is 20% or higher, the patient may qualify for future screening with alternating mammogram and breast MRI. Electronically signed and approved by: Omega Nichole M.D. Radiologis
== END | disposition home or self-care (01) ==
LOC: RADCTMAIN 11:31
PROVIDERS: ATTEND Internal Medicine
DX: Z12.31 Encounter for screening mammogram for malignant neoplasm of breast (principal); Z13.820 Encounter for screening for osteoporosis; Z12.2 Encounter for screening for malignant neoplasm of respiratory organs; M85.89 Other specified disorders of bone density and structure, multiple sites; K44.9 Diaphragmatic hernia without obstruction or gangrene; Z78.0 Asymptomatic menopausal state; Z87.891 Personal history of nicotine dependence
CPT/HCPCS: 71271; 77063; 77067; 77080

== ENCOUNTER → 2023-12-19 | Outpatient (CLI) | payer MEDICARE, OTHER ==
--- NOTE | 2023-12-19 14:39 | US ---
EXAMINATION TYPE: US venous doppler duplex LE DATE OF EXAM: 12/19/2023 2:15 PM COMPARISON: NONE CLINICAL INDICATION: Female, 63 years old with history of R60.0 LOCALIZED EDEMA BLE; Intermittent yadira ma bilateral legs for years. multiple surgeries right leg, broken femur 1-2 years ago. Bilateral knee replacement, right 2011, left 2010 SIDE PERFORMED: Bilateral TECHNIQUE: The lower extremity deep venous system is examined utilizing real time linear array sonog sharan with graded compression, doppler sonography and color-flow sonography. VESSELS IMAGED: Common Femoral Vein Deep Femoral Vein Greater Saphenous Vein * Femoral Vein Popliteal Vein Small Saphenous Vein * Proximal Calf Veins (* superficial vessels) *Limitations due to patient's body habitus and edema The deep venous systems of both lower extremities from the common femoral remains to the proximal sana f veins are patent and compressible with augmentable flow and with normal waveforms. IMPRESSION: No evidence of bilateral lower extremity DVT from the common femoral veins to the proximal calf veins
== END | disposition home or self-care (01) ==
LOC: RADUSWWP 13:12
PROVIDERS: ATTEND Internal Medicine
DX: R60.0 Localized edema (principal); Z96.653 Presence of artificial knee joint, bilateral
CPT/HCPCS: 93970

== ENCOUNTER 2024-02-12 12:34 | Inpatient (IN) | payer MEDICARE, OTHER ==
[2024-02-12] MEDS ORDERED: SODIUM CHLORIDE 0.9% 500 ML BAG ONE (16:05)
[2024-02-12] MEDS ORDERED: SODIUM CHLORIDE 0.9% 1,000 ML BAG ONE (16:05)
[2024-02-12] MEDS ORDERED: IBUPROFEN 600 MG TAB PO ONE (20:40)
[2024-02-12] MEDS ORDERED: MORPHINE SULFATE 4 MG/ML SYRINGE ONE (21:57)
[2024-02-13] MEDS ORDERED: MORPHINE SULFATE 4 MG/ML SYRINGE ONE ×5 (03:50→22:54)
[2024-02-13] MEDS ORDERED: ENOXAPARIN 40 MG/0.4 ML SYRINGE SQ ONE (08:27)
[2024-02-13] MEDS ORDERED: lisinopriL 20 MG TAB ONE (08:27)
[2024-02-13] MEDS ORDERED: ESCITALOPRAM 20 MG TAB ONE (08:30)
[2024-02-13] MEDS ORDERED: CEPHALEXIN 500 MG CAP ONE ×2 (11:01→22:34)
[2024-02-14] MEDS ORDERED: MORPHINE SULFATE 4 MG/ML SYRINGE ONE ×5 (03:21→22:18)
[2024-02-14] MEDS ORDERED: ENOXAPARIN 40 MG/0.4 ML SYRINGE SQ ONE (08:51)
[2024-02-14] MEDS ORDERED: lisinopriL 20 MG TAB ONE (08:51)
[2024-02-14] MEDS ORDERED: ESCITALOPRAM 20 MG TAB ONE (08:51)
[2024-02-15] MEDS ORDERED: MORPHINE SULFATE 4 MG/ML SYRINGE ONE ×3 (03:12→13:17)
[2024-02-15] MEDS ORDERED: ENOXAPARIN 40 MG/0.4 ML SYRINGE SQ ONE (08:14)
[2024-02-15] MEDS ORDERED: lisinopriL 20 MG TAB ONE (08:14)
[2024-02-15] MEDS ORDERED: ESCITALOPRAM 20 MG TAB ONE (08:14)
== END 2024-02-15 15:01 | disposition home health service (06) | DRG 644 ==
LOC: 4SSUR 12:34 → UNDOADMIN 12:34 → 4SSUR 21:43 → UNDODISIN 02-15 15:01
PROVIDERS: ADMIT Internal Medicine; ATTEND Internal Medicine
DX: E22.2 Syndrome of inappropriate secretion of antidiuretic hormone (principal); N39.0 Urinary tract infection, site not specified; F31.9 Bipolar disorder, unspecified; E87.8 Other disorders of electrolyte and fluid balance, not elsewhere classified; E03.9 Hypothyroidism, unspecified; I10 Essential (primary) hypertension; Z96.653 Presence of artificial knee joint, bilateral; Z87.891 Personal history of nicotine dependence; Z79.899 Other long term (current) drug therapy; Z79.890 Hormone replacement therapy
CPT/HCPCS: 82533; 82570; 83930; 83935; 84300; 99285

== ENCOUNTER → 2024-03-19 | Outpatient (CLI) | payer MEDICARE, OTHER ==
--- NOTE | 2024-03-19 12:27 | CTL ---
Addendum: Impression should state " Lung-rads Category 1, negative" EXAMINATION TYPE: CT Low Dose Lung DATE OF EXAM ORDERED: 03/19/2024 History: Lung cancer screening CT DLP: [address] CTDI: 2.53 mGy Automated exposure control for dose reduction was used. Comparison: 02/19/2023 TECHNIQUE: Low dose computed tomography scan was performed through the chest at 1 mm thick sections and reconstructed images in multiple planes at 1 mm and [address] DIAGNOSTIC QUALITY: Satisfactory FINDINGS: There is no suspicious lung mass or nodule The lungs are clear and there is no abnormal consolidation or interstitial density. There is no mediastinal, hilar or axillary adenopathy. There is no pleural effusion, pleural thickening or pneumothorax. No focal osseous lesions are seen. Limited scans the upper abdomen reveals no gross adenopathy. IMPRESSION: 1. LUNG-RADS Category 1 negative. Continue routine screening at yearly intervals. 2. No acute cardiopulmonary disease. [facility], Workstation: JAYLAN 03/24/2024 8:37 PM MTDD
== END | disposition home or self-care (01) ==
LOC: RADCTMAIN 11:49
PROVIDERS: ATTEND Internal Medicine
DX: Z12.2 Encounter for screening for malignant neoplasm of respiratory organs
CPT/HCPCS: 71271

== ENCOUNTER 2024-04-06 17:13 | Inpatient (IN) | payer MEDICARE, OTHER ==
--- NOTE | 2024-04-06 17:27 | ED ---
General Adult HPI - General Chief complaint: Nausea/Vomiting/Diarrhea Stated complaint: vomiting Time Seen by Provider: 04/06/24 17:17 Source: patient, EMS, RN notes reviewed Mode of arrival: EMS Limitations: no limitations - History of Present Illness Initial comments: Patient is a 63-year-old female presenting to the emergency department with concerns for vomiting. Symptoms have been present for the past week. Patient has also had some diarrhea. Patient does have some pressure in her abdomen and chest associated with this. Patient admits to drinking alcohol daily, maybe a pint of binta as well as beer. Patient did drink some today. - Related Data Home Medications Medication Instructions Recorded Confirmed Gabapentin 800 mg PO TID 07/10/18 10/16/22 OXcarbazepine [Trileptal] 300 mg PO DAILY 07/10/18 10/16/22 Albuterol Sulfate [Albuterol 2 puff PO RT-Q6H PRN 07/04/22 10/16/22 Sulfate Hfa] Escitalopram Oxalate [Lexapro] 20 mg PO DAILY 07/04/22 10/16/22 clonazePAM [KlonoPIN] 0.5 mg PO DAILY PRN 07/04/22 10/16/22 lisinopriL [Prinivil] 20 mg PO DAILY 07/04/22 10/16/22 traZODone HCL 300 mg PO HS 07/04/22 10/16/22 Cholecalciferol [Vitamin D3 (25 50 mcg PO DAILY 10/16/22 10/16/22 Mcg = 1000 Iu)] Levothyroxine Sodium [Synthroid] 125 mcg PO DAILY 10/16/22 10/16/22 guanFACINE HCL [Intuniv] 2 mg PO DAILY 10/16/22 10/16/22 methocarbamoL [Robaxin] 500 mg PO TID PRN 10/16/22 10/16/22 traMADol HCl [Ultram] 50 mg PO Q6HR PRN 10/16/22 10/16/22 Previous Rx's Medication Instructions Recorded Meloxicam 7.5 mg PO DAILY PRN #15 tablet 10/16/22 Metoclopramide [Reglan] 10 mg PO Q6H PRN #20 tab 10/16/22 Ondansetron Odt [Zofran Odt] 4 mg PO Q8HR PRN #20 tab 10/16/22 Allergies Allergy/AdvReac Type Severity Reaction Status Date / Time No Known Allergies Allergy Verified 10/16/22 21:22 Review of Systems ROS Statement: Those systems with pertinent positive or pertinent negative responses have been documented in the HPI. ROS Other: All systems not noted in ROS Statement are negative. Constitutional: Denies: fever Eyes: Denies: eye pain ENT: Denies: ear pain Respiratory: Denies: cough, dyspnea Cardiovascular: Reports: as per HPI Gastrointestinal: Reports: as per HPI, abdominal pain, nausea, vomiting, diarrhea Genitourinary: Denies: dysuria Musculoskeletal: Denies: back pain Past Medical History Past Medical History: Hypertension, Thyroid Disorder Additional Past Medical History / Comment(s): anxiety History of Any Multi-Drug Resistant Organisms: None Reported Past Surgical History: Unable to Obtain, Back Surgery, Section, Orthopedic Surgery Past Psychological History: ADD/ADHD, Anxiety, Bipolar, Depression Smoking Status: Current every day smoker Past Alcohol Use History: Rare Past Drug Use History: Marijuana General Exam Limitations: no limitations General appearance: alert, in no apparent distress Head exam: Present: normocephalic Eye exam: Present: normal appearance Neck exam: Present: normal inspection Respiratory exam: Present: normal lung sounds bilaterally. Absent: chest wall tenderness Cardiovascular Exam: Present: regular rate, normal rhythm Expanded Peripheral pulses: 2+: Radial (R), Radial (L), Dorsalis Pedis (R), Dorsalis Pedis (L) GI/Abdominal exam: Present: soft, normal bowel sounds. Absent: distended, tenderness, guarding, rebound, rigid, pulsatile mass Extremities exam: Present: normal inspection. Absent: pedal edema, calf tenderness Neurological exam: Present: alert Psychiatric exam: Present: normal affect, normal mood Skin exam: Present: normal color Course Vital Signs 04/06/24 04/06/24 17:14 18:49 Temperature 98.4 F Pulse Rate 92 64 Respiratory 18 18 Rate Blood Pressure 167/84 123/67 O2 Sat by Pulse 100 97 Oximetry EKG Findings - EKG Results: EKG: interpreted by ERMD (Nonspecific ST-T), sinus rhythm, normal axis, normal QRS Medical Decision Making - Medical Decision Making Was pt. sent in by a medical professional or institution (, PA, CAMPUS SAFETY OFFICER, urgent care, hospital, or penitentiary...) When possible be specific @ -No Did you speak to anyone other than the patient for history (EMS, parent, family, police, friend...)? What history was obtained from this source @ -No Did you review nursing and triage notes (agree or disagree)? Why? @ -I reviewed and agree with nursing and triage notes Were old charts reviewed (outside hosp., previous admission, EMS record, old EKG, old radiological studies, urgent care reports/EKG's, penitentiary records)? Report findings @ -Previous liver enzymes reviewed with various results Differential Diagnosis (chest pain, altered mental status, abdominal pain women, abdominal pain men, vaginal bleeding, weakness, fever, dyspnea, syncope, headache, dizziness, GI bleed, back pain, seizure, CVA, palpatations, mental health, musculoskeletal)? @ -Differential Abdominal Pain Women: Appendicitis, Cholecystitis, diverticulosis, ischemic bowel, pancreatitis, hepatitis, UTI, gastroenteritis, AAA, incarcerated hernia, bowel obstruction, constipation, inflammatory bowel, hepatitis, peptic ulcer disease, splenic infarction, perforated viscus, vulvitis, ovarian torsion, PID, kidney stone, placenta abruption, this is not meant to be an all-inclusive list EKG interpreted by me (3pts min.). @ -As above X-rays interpreted by me (1pt min.). @ -X-ray shows no acute process. Abdominal x-ray shows no acute process. Left renal stone possible CT interpreted by me (1pt min.). @ -None done U/S interpreted by me (1pt. min.). @ -None done What testing was considered but not performed or refused? (CT, X-rays, U/S, labs)? Why? @ -Ultrasound of gallbladder and pancreas will be ordered What meds were considered but not given or refused? Why? @ -None Did you discuss the management of the patient with other professionals (professionals i.e. , PA, CAMPUS SAFETY OFFICER, lab, RT, psych nurse, social worker psychiatric, drill bit sharpener, teacher, sales officer, case technician)? Give summary @ -With with Dr. Kirkland who will admit covering Dr. Davis Was smoking cessation discussed for >3mins.? @ -No Was critical care preformed (if so, how long)? @ -No Were there social determinants of health that impacted care today? How? (Homelessness, low income, unemployed, alcoholism, drug addiction, transportation, low edu. Level, literacy, decrease access to med. care, halfway, rehab)? @ -No Was there de-escalation of care discussed even if they declined (Discuss DNR or withdrawal of care, Hospice)? DNR status @ -No What co-morbidities impacted this encounter? (DM, HTN, Smoking, COPD, CAD, Cancer, CVA, ARF, Chemo, Hep., AIDS, mental health diagnosis, sleep apnea, morbid obesity)? @ -History of alcohol consumption Was patient admitted / discharged? Hospital course, mention meds given and route, prescriptions, significant lab abnormalities, going to OR and other pertinent info. @ -Patient presents with abdominal and chest pain as well as nausea and vomiting. Concerning labs for pancreatitis. Patient will be admitted with further testing. Admission orders written Undiagnosed new problem with uncertain prognosis? @ -No Drug Therapy requiring intensive monitoring for toxicity (Heparin, Nitro, Insulin, Cardizem)? @ -No Were any procedures done? @ -No Diagnosis/symptom? @ -Pancreatitis Acute, or Chronic, or Acute on Chronic? @ -Acute Uncomplicated (without systemic symptoms) or Complicated (systemic symptoms)? @ -Default Side effects of treatment? @ -No Exacerbation, Progression, or Severe Exacerbation? @ -No Poses a threat to life or bodily function? How? (Chest pain, [place], [place], pneumonia, PE, COPD, DKA, ARF, appy, cholecystitis, CVA, Diverticulitis, Homicidal, Suicidal, threat to staff... and all critical care pts) @ -Threat to pancreatic function - Lab Data Result diagrams: 04/06/24 17:37 04/06/24 17:37 Lab Results 04/06/24 04/06/24 04/06/24 Range/Units 17:36 17:37 17:37 WBC 5.2 (3.8-10.6) k/uL RBC 3.40 L (3.80-5.40) m/uL Hgb 10.3 L (11.4-16.0) gm/dL Hct 32.7 L (34.0-46.0) % MCV 96.1 (80.0-100.0) fL MCH 30.2 (25.0-35.0) pg MCHC 31.4 (31.0-37.0) g/dL RDW 14.3 (11.5-15.5) % Plt Count 124 L (150-450) k/uL MPV 7.1 Neutrophils % 78 % Lymphocytes % 13 % Monocytes % 6 % Eosinophils % 1 % Basophils % 0 % Neutrophils # 4.1 (1.3-7.7) k/uL Lymphocytes # 0.7 L (1.0-4.8) k/uL Monocytes # 0.3 (0-1.0) k/uL Eosinophils # 0.0 (0-0.7) k/uL Basophils # 0.0 (0-0.2) k/uL PT 11.3 (10.0-12.5) sec INR 1.0 (<1.2) APTT 28.1 (22.0-30.0) sec Sodium (137-145) mmol/L Potassium (3.5-5.1) mmol/L Chloride (98-107) mmol/L Carbon Dioxide (22-30) mmol/L Anion Gap mmol/L BUN (7-17) mg/dL Creatinine (0.52-1.04) mg/dL Est GFR (CKD-EPI)AfAm (>60 ml/min/1.73 sqM) Est GFR (CKD-EPI)NonAf (>60 ml/min/1.73 sqM) Glucose (74-99) mg/dL Calcium (8.4-10.2) mg/dL Total Bilirubin (0.2-1.3) mg/dL AST (14-36) U/L ALT (4-34) U/L Alkaline Phosphatase (38-126) U/L Troponin I 0.019 (0.000-0.034) ng/mL Total Protein (6.3-8.2) g/dL Albumin (3.5-5.0) g/dL Amylase (30-110) U/L Lipase (23-300) U/L Serum Alcohol mg/dL 04/06/24 Range/Units 17:37 WBC (3.8-10.6) k/uL RBC (3.80-5.40) m/uL Hgb (11.4-16.0) gm/dL Hct (34.0-46.0) % MCV (80.0-100.0) fL MCH (25.0-35.0) pg MCHC (31.0-37.0) g/dL RDW (11.5-15.5) % Plt Count (150-450) k/uL MPV Neutrophils % % Lymphocytes % % Monocytes % % Eosinophils % % Basophils % % Neutrophils # (1.3-7.7) k/uL Lymphocytes # (1.0-4.8) k/uL Monocytes # (0-1.0) k/uL Eosinophils # (0-0.7) k/uL Basophils # (0-0.2) k/uL PT (10.0-12.5) sec INR (<1.2) APTT (22.0-30.0) sec Sodium 135 L (137-145) mmol/L Potassium 4.0 (3.5-5.1) mmol/L Chloride 99 (98-107) mmol/L Carbon Dioxide 18 L (22-30) mmol/L Anion Gap 18 mmol/L BUN 22 H (7-17) mg/dL Creatinine 0.63 (0.52-1.04) mg/dL Est GFR (CKD-EPI)AfAm >90 (>60 ml/min/1.73 sqM) Est GFR (CKD-EPI)NonAf >90 (>60 ml/min/1.73 sqM) Glucose 91 (74-99) mg/dL Calcium 10.5 H (8.4-10.2) mg/dL Total Bilirubin 1.5 H (0.2-1.3) mg/dL AST 257 H (14-36) U/L ALT 69 H (4-34) U/L Alkaline Phosphatase 263 H (38-126) U/L Troponin I (0.000-0.034) ng/mL Total Protein 8.1 (6.3-8.2) g/dL Albumin 4.1 (3.5-5.0) g/dL Amylase 148 H (30-110) U/L Lipase 1815 H (23-300) U/L Serum Alcohol 186 mg/dL Disposition Clinical Impression: Pancreatitis Disposition: ADMITTED IP TO THIS HOSP Is patient prescribed a controlled substance at d/c from ED?: No Referrals: Jann Dc DO [Primary Care Provider] - 1-2 days Time of Disposition: 19:36
[2024-04-06] MEDS: ONDANSETRON 4 MG/2 ML VIAL IVP STA (17:33)
[2024-04-06] MEDS: PANTOPRAZOLE 40 MG/10 ML VIAL IVP STA (17:33)
[2024-04-06] MEDS: SODIUM CHLORIDE 0.9% 1,000 ML IV STA (17:33)
[2024-04-06 18:01] LABS: Basophils % (A) 0 %; Eosinophils % (A) 1 %; HCT 32.7 % (34.0-46.0); HGB 10.3 gm/dL (11.4-16.0); Lymphocytes # (A) 0.7 k/uL (1.0-4.8); Lymphocytes % (A) 13 %; MCH 30.2 pg (25.0-35.0); MCHC 31.4 g/dL (31.0-37.0); MCV 96.1 fL (80.0-100.0); Mean Platelet Volume 7.1; Monocytes # (A) 0.3 k/uL (0-1.0); Monocytes % (A) 6 %; Neutrophils # (A) 4.1 k/uL (1.3-7.7); Neutrophils % (A) 78 %; Platelet Count 124 k/uL (150-450); RDW 14.3 % (11.5-15.5); WBC 5.2 k/uL (3.8-10.6)
[2024-04-06 18:10] LABS: ALT 69 U/L (4-34); African American GFR (CKD) >90 (>60 ml/min/1.73 sqM); Albumin 4.1 g/dL (3.5-5.0); Amylase 148 U/L (30-110); Anion Gap 18 mmol/L; Blood Urea Nitrogen 22 mg/dL (7-17); Calcium 10.5 mg/dL (8.4-10.2); Carbon Dioxide 18 mmol/L (22-30); Chloride 99 mmol/L (98-107); Glucose 91 mg/dL (74-99); Lipase 1815 U/L (23-300); Non-African American GFR(CKD) >90 (>60 ml/min/1.73 sqM); Sodium 135 mmol/L (137-145); Total Bilirubin 1.5 mg/dL (0.2-1.3); Total Protein 8.1 g/dL (6.3-8.2)
[2024-04-06 18:16] LABS: AST 257 U/L (14-36); Alkaline Phosphatase 263 U/L (38-126)
[2024-04-06 18:18] LABS: Alcohol 186 mg/dL
[2024-04-06 18:42] LABS: Partial Thromboplastin Time 28.1 sec (22.0-30.0); Prothrombin Time 11.3 sec (10.0-12.5)
--- NOTE | 2024-04-06 18:50 | XR ---
EXAMINATION TYPE: XR chest 2V DATE OF EXAM: 04/06/2024 6:20 PM CLINICAL INDICATION: Female, 63 years old with history of abdominal pain; [facility] COMPARISON: None TECHNIQUE: XR chest 2V Frontal view of the chest. FINDINGS: Lungs/Pleura: There is no evidence of pleural effusion, focal consolidation, or pneumothorax. Pulmonary vascularity: Unremarkable. Heart/mediastinum: Cardiomediastinal silhouette is unremarkable. Musculoskeletal: No acute osseous pathology. Other findings: None IMPRESSION: No acute cardiopulmonary disease/process. [facility], , 04/06/2024 6:48 PM
--- NOTE | 2024-04-06 18:52 | XR ---
EXAMINATION TYPE: XR KUB DATE OF EXAM: 04/06/2024 6:20 PM CLINICAL INDICATION: Female, 63 years old with history of abdominal pain; H COMPARISON: None. TECHNIQUE: One radiographic view of the abdomen was obtained. FINDINGS: The bowel gas pattern is nonspecific without dilated loops of small or large bowel. . Fecal material and gas are demonstrated throughout the colon and rectum. There is no evidence for organomegaly or pneumoperitoneum. The osseous structures are intact. No ab normal calcifications are present. Right hip fixation hardware appears intact. Vague opacity near the left renal sinus measuring up to 8 mm. IMPRESSION: 1. Nonspecific bowel gas pattern without radiographic evidence for acute process. 2. Left renal sinus calculus suggested. [facility], , 04/06/2024 6:50 PM
[2024-04-06] MEDS ORDERED: NALOXONE 0.4 MG/ML 1 ML VIAL IV PRN (19:36)
[2024-04-06] MEDS ORDERED: ONDANSETRON 4 MG/2 ML VIAL IVP PRN (19:36)
[2024-04-06] MEDS ORDERED: LORazepam 1 MG TAB PO PRN ×2 (20:06)
[2024-04-06] MEDS ORDERED: clonazePAM 0.5 MG TAB PO PRN (20:07)
--- NOTE | 2024-04-06 20:24 | US ---
EXAMINATION TYPE: US gallbladder DATE OF EXAM: 04/06/2024 COMPARISON: NONE CLINICAL INDICATION: Female, 63 years old with history of And pancreas, pain, pancreatitis; Patient s tates RUQ abd pain for one week TECHNIQUE: Grayscale and color Doppler imaging of the right upper quadrant was performed. FINDINGS: EXAM MEASUREMENTS: Liver Length: 20.6 cm Gallbladder Wall: 0.2 cm CBD: 1.2 cm Right Kidney: 11.8 x 4.0 x 5.5 cm TRANSIT PLANNER NOTES:Limited visualization due to patient body habitus and overlying bowel gas Pancreas: Obscured by bowel gas Liver: Hepatomegaly, difficult to penetrate Gallbladder: Hydropic measuring 15.6cm in length. Wall WNL Evidence for sonographic Fletcher's sign: No CBD: Dilated. Possible echogenic foci seen within. Right Kidney: wnl as best seen IMPRESSION: 1. Hydropic appearing gallbladder with dilated common bile duct measuring 12 mm. Suggestion of manufacturing intern al hyperchogenicity within the common bile duct may represent choledocholithiasis. Further evaluation with dedicated MRCP or ERCP is recommended. 2. Hepatic steatosis. [facility], , 04/06/2024 8:22 PM
[2024-04-06] MEDS: THIAMINE 100 MG/ML 2 ML VIAL IM STA (20:25)
[2024-04-06] MEDS: GABAPENTIN 300 MG CAP PO SCH (20:25)
[2024-04-06] MEDS: HYDROmorphone 0.5 MG/0.5 ML SYRINGE IVP PRN (20:25)
[2024-04-06] MEDS: SODIUM CHLORIDE 0.9% 1,000 ML IV SCH (20:26)
--- NOTE | 2024-04-06 22:16 | P.HPIM ---
History of Present Illness H&P Date: 04/06/24 Patient is a 63-year-old female with a history of EtOH abuse (w/ hx of DTs and withdrawal seizures), hypothyroidism, hypertension, anxiety and depression who came in for chest pressure and abdominal pain via EMS. She reports chest pressure has been occurring for a week that has been substernal constant with intensity of 8 out of 10 that is nonradiating with associated abdominal pain that is epigastric 8 out of 10 intensity that is constant and nonradiating. She also reports nausea with vomiting that is watery and small in volume, as well as diarrhea that is liquid stools with tarry black in color, and sweats. She denies shortness of breath, fever, new onset cough, jaundice, or recent travel. Patient reports drinking 1/2 pint of varying hard liquors daily for the past several years. Notes that due to her above symptoms, she only drank 2 beers earlier today around noon. In the emergency room, chest x-ray showed no acute cardiopulmonary process. EKG showed NSR rate of [address]-T changes QTc 439. KUB x-ray showed no acute pathologic process. Gallbladder ultrasound revealed hydropic gallbladder with dilated common bile duct measuring 12 mm. Laboratory evaluation revealed WBC 5.2 hemoglobin 10.3 platelet count 124, lipase elevated at 1815 amylase elevated 148. EtOH serum level is 186. Total bilirubin 1.5 AST 257 ALT 69 ALP 263 which all elevated. Calcium 10.5 which is elevated. Bicarb of 18 which is decreased Patient afebrile on admission with 98.4. Heart rate 92 respiratory 18 on 2 L nasal cannula with O2 of 100%. Blood pressure elevated at 167/84 ED documentation reviewed and case discussed with ED provider. Review of systems: Pertinent positives and negatives as discussed in HPI, a complete review of systems was performed and all other systems are negative. Family history: Mother had [place] at 56 years old . Father had CVA at 73 and is . Social history: Tobacco: History of tobacco use. With 1.5 years ago smoked half a pack for 25 years Alcohol: Current alcohol use. Drinks half to 1 pint of binta daily for 25 yea rs Recreational drugs: Occasional marijuana Travel: No recent travel Occupation: Disabled Physical examination: Vital signs reviewed General: non toxic, no distress, appears older than stated age Derm: no unusual rashes/lesions, warm Head: atraumatic, normocephalic, symmetric Eyes: EOMI, no lid lag, anicteric sclera, pupils equal round reactive to light ENT: Nose and ears atraumatic Neck: No cervical lymphadenopathy, trachea midline, supple Mouth: no lip lesion, mucus membranes slightly dry Cardiovascular: S1S2 reg, no murmur Lungs: CTA bilateral, no rhonchi, no rales, no accessory muscle use Abdominal: soft, epigastric and RUQ tenderness to palpation, no guarding Ext: muscle strength 5 out of 5 in all 4 extremities grossly, no gross muscle atrophy, no contractures, positive dorsalis pedis pulse bilateral, no edema Neuro: CN II-XI grossly intact, no gross focal neuro deficits Psych: Alert, oriented, appropriate affect and mood Assessment/Plan: #. Acute pancreatitis, likely due to EtOH abuse w/ dilated CBD Daily EtOH intake. Lipase 1815, alcohol level 186 -Continue with IVF NS 0.9% at 130 cc/h -Zofran 4 mg IV P every 8 as needed for nausea and vomiting -Ativan per [facility] protocol -Continue with oral B1 and multivitamins -Continue with Dilaudid for pain control -CBC, CMP, mag, lipase in the a.m. -GI consulted -Advised on importance of cessation from EtOH abuse -Cardiac monitoring -Fall precautions #. Bicytopenia, likely due to ongoing alcohol abuse -Monitor CBC #. Transaminitis, likely due to alcohol abuse Monitor CMP Chronic conditions: Hypothyroidism, anxiety, depression, hypertension GI prophylaxis: Protonix 40 mg IV OD DVT prophylaxis: Lovenox 40 mg SQ OD The patient is admitted with an anticipated more than than 2 midnight stay for evaluation of acute pancreatitis CODE STATUS: Full Discussed with: Patient Anticipated discharge place: Home Past Medical History Past Medical History: Hypertension, Thyroid Disorder Additional Past Medical History / Comment(s): anxiety History of Any Multi-Drug Resistant Organisms: None Reported Past Surgical History: Unable to Obtain, Back Surgery, Section, Orthopedic Surgery Past Psychological History: ADD/ADHD, Anxiety, Bipolar, Depression Smoking Status: Current every day smoker Past Alcohol Use History: Rare Past Drug Use History: Marijuana - Past Family History Father Family Medical History: Coronary Artery Disease (CAD) Medications and Allergies Home Medications Medication Instructions Recorded Confirmed Type Escitalopram Oxalate [Lexapro] 20 mg PO DAILY 07/04/22 04/06/24 History clonazePAM [KlonoPIN] 0.5 mg PO DAILY PRN 07/04/22 04/06/24 History methocarbamoL [Robaxin] 500 mg PO TID PRN 10/16/22 04/06/24 History Gabapentin 600 mg PO TID 04/06/24 04/06/24 History Ibuprofen [Motrin] 800 mg PO TID-W/MEALS PRN 04/06/24 04/06/24 History Levothyroxine Sodium [Synthroid] 137 mcg PO DAILY 04/06/24 04/06/24 History Pantoprazole [Protonix] 40 mg PO DAILY 04/06/24 04/06/24 History Sodium Chloride Tab 1 gm PO DAILY 04/06/24 04/06/24 History lisinopriL 30 mg PO DAILY 04/06/24 04/06/24 History Allergies Allergy/AdvReac Type Severity Reaction Status Date / Time No Known Allergies Allergy Verified 04/06/24 19:56 Physical Exam Vitals: Vital Signs Temp Pulse Resp BP Pulse Ox 04/06/24 18:49 64 18 123/67 97 04/06/24 17:14 98.4 F 92 18 167/84 100 Intake and Output 04/06/24 04/06/24 04/06/24 06:59 14:59 22:59 Other: Weight 90.718 kg Results CBC & Chem 7: 04/06/24 17:37 04/06/24 17:37 Labs: Abnormal Lab Results - Last 24 Hours (Table) 04/06/24 04/06/24 Range/Units 17:37 17:37 RBC 3.40 L (3.80-5.40) m/uL Hgb 10.3 L (11.4-16.0) gm/dL Hct 32.7 L (34.0-46.0) % Plt Count 124 L (150-450) k/uL Lymphocytes # 0.7 L (1.0-4.8) k/uL Sodium 135 L (137-145) mmol/L Carbon Dioxide 18 L (22-30) mmol/L BUN 22 H (7-17) mg/dL Calcium 10.5 H (8.4-10.2) mg/dL Total Bilirubin 1.5 H (0.2-1.3) mg/dL AST 257 H (14-36) U/L ALT 69 H (4-34) U/L Alkaline Phosphatase 263 H (38-126) U/L Amylase 148 H (30-110) U/L Lipase 1815 H (23-300) U/L
[2024-04-06] MEDS: LORazepam 2 MG/ML INJ IV PRN (22:44)
[2024-04-06] MEDS: ENOXAPARIN 40 MG/0.4 ML SYRINGE SQ SCH (22:58)
[2024-04-07] MEDS: LORazepam 0.5 MG TAB PO PRN (03:54)
[2024-04-07] MEDS: LEVOTHYROXINE 137 MCG TAB PO SCH (06:06)
[2024-04-07] MEDS: PANTOPRAZOLE 40 MG/10 ML VIAL IV SCH (08:11)
[2024-04-07] MEDS: HYDROmorphone 1 MG/ML 1 ML SYRINGE IVP PRN (08:11)
[2024-04-07] MEDS: MULTIVITAMINS, THERA 1 EACH TAB PO SCH (08:22)
[2024-04-07] MEDS: ESCITALOPRAM 20 MG TAB PO SCH (08:22)
[2024-04-07] MEDS: lisinopriL 10 MG TAB PO SCH (08:23)
[2024-04-07 08:38] LABS: ALT 59 U/L (8-44); AST 207 U/L (13-35); Albumin 3.6 g/dL (3.8-4.9); Albumin/Globulin Ratio 0.97 Ratio (1.60-3.17); Alkaline Phosphatase 232 U/L (41-126); BUN/Creat Ratio 26.38 Ratio (12.00-20.00); Blood Urea Nitrogen 21.1 mg/dL (9.0-27.0); Calcium 9.9 mg/dL (8.7-10.3); Carbon Dioxide 18.7 mmol/L (21.6-31.8); Chloride 94 mmol/L (96-109); Globulin 3.7 g/dL (1.6-3.3); Glucose 63 mg/dL (70-110); LDH 210 U/L (120-246); Magnesium 1.6 mg/dL (1.5-2.4); Potassium 3.7 mmol/L (3.5-5.5); Sodium 134 mmol/L (135-145); Total Bilirubin 0.9 mg/dL (0.3-1.2); Total Protein 7.3 g/dL (6.2-8.2)
[2024-04-07 08:53] LABS: Lipase 1248 U/L (14-63)
[2024-04-07] MEDS: THIAMINE 100 MG TAB PO SCH (09:21)
[2024-04-07 09:25] LABS: Basophils # (A) 0.07 X 10*3/uL (0.00-0.10); Eosinophils # (A) 0.05 X 10*3/uL (0.04-0.35); Eosinophils % (A) 0.7 %; HCT 28.8 % (37.2-46.3); HGB 9.3 g/dL (12.0-15.0); Lymphocytes # (A) 0.82 X 10*3/uL (0.90-5.00); Lymphocytes % (A) 12.3 %; MCH 30.5 pg (27.0-32.0); MCHC 32.3 g/dL (32.0-37.0); MCV 94.4 FL (80.0-97.0); Macrocytosis (M) 2+; Monocytes # (A) 0.73 X 10*3/uL (0.20-1.00); Monocytes % (A) 10.9 %; NRBC Per 100 WBC 0 X 10*3/uL (0.00-0.01); Neutrophils # (A) 4.96 X 10*3/uL (1.80-7.70); Neutrophils % (A) 74.5 %; Platelet Count 94 X 10*3/uL (140-440); RBC 3.05 X 10*6/uL (4.10-5.20); RDW 14.9 % (11.5-14.5); WBC 6.67 X 10*3/uL (4.50-10.00)
[2024-04-07] MEDS: LORazepam 1 MG TAB PO PRN (12:11)
--- NOTE | 2024-04-07 15:14 | P.CONS ---
History of Present Illness - Reason for Consult Consult date: 04/07/24 Dilated CBD on ultrasound Requesting physician: Pauline Valentin - Chief Complaint abdominal pain - History of Present Illness This is a pleasant 63-year-old female with a past medical history including alcohol abuse and admits to drinking daily a pint of binta and some beer for many years, hypertension and thyroid disorder who presented to the emergency department with complaints of abdominal pain mostly in the epigastric region. States abdominal pain is associated with nausea and vomiting and started about a week ago but progressively got worse. On admission she had blood alcohol level 186, elevated amylase and lipase consistent with pancreatitis as well as miriam vated LFTs. She underwent an ultrasound of the abdomen showing a dilated common bile duct of 1.2 cm with possible debris. Gastroenterology was consulted for dilated CBD. She states abdominal pain still present mostly in the epigastric region, no nausea or vomiting at this time. She denies any fevers, chills, no history of previous pancreatitis or gallbladder issues. Review of Systems CARDIOPULMONARY: No chest pain or shortness of breath. Gastrointestinal: Abdominal pain associated with nausea and vomiting. No hematemesis, coffee-ground emesis. No rectal bleeding, or melena. GENITOURINARY: No dysuria or hematuria. MUSCULOSKELETAL: Reports normal range of motion., Joint pain. SKIN: No rashes. No jaundice. ENDOCRINE: No chills, fevers. No excessive weight gain or loss. No polydipsia or polyuria. PSYCHIATRIC: Unremarkable. NEUROLOGY: No change in mental status. Denies dizziness, headache. ENT: Vision unremarkable. CONSTITUTIONAL: No recent weight loss. No fever, chills, night sweats Past Medical History Past Medical History: Hypertension, Thyroid Disorder Additional Past Medical History / Comment(s): anxiety History of Any Multi-Drug Resistant Organisms: None Reported Past Surgical History: Unable to Obtain, Back Surgery, Section, Orthopedic Surgery Past Psychological History: ADD/ADHD, Anxiety, Bipolar, Depression Smoking Status: Current every day smoker Past Alcohol Use History: Rare Past Drug Use History: Marijuana - Past Family History Father Family Medical History: Coronary Artery Disease (CAD) Medications and Allergies Home Medications Medication Instructions Recorded Confirmed Type Escitalopram Oxalate [Lexapro] 20 mg PO DAILY 07/04/22 04/06/24 History clonazePAM [KlonoPIN] 0.5 mg PO DAILY PRN 07/04/22 04/06/24 History methocarbamoL [Robaxin] 500 mg PO TID PRN 10/16/22 04/06/24 History Gabapentin 600 mg PO TID 04/06/24 04/06/24 History Ibuprofen [Motrin] 800 mg PO TID-W/MEALS PRN 04/06/24 04/06/24 History Levothyroxine Sodium [Synthroid] 137 mcg PO DAILY 04/06/24 04/06/24 History Pantoprazole [Protonix] 40 mg PO DAILY 04/06/24 04/06/24 History Sodium Chloride Tab 1 gm PO DAILY 04/06/24 04/06/24 History lisinopriL 30 mg PO DAILY 04/06/24 04/06/24 History Allergies Allergy/AdvReac Type Severity Reaction Status Date / Time No Known Allergies Allergy Verified 04/06/24 19:56 Physical Exam Vitals: Vital Signs Temp Pulse Resp BP Pulse Ox 04/07/24 08:29 99 20 159/75 93 L 04/07/24 06:48 96 14 160/72 94 L 04/07/24 05:18 93 14 159/71 94 L 04/07/24 03:36 100 16 157/75 96 04/06/24 22:34 90 18 145/78 96 04/06/24 20:33 84 20 130/90 96 04/06/24 18:49 64 18 123/67 97 04/06/24 17:14 98.4 F 92 18 167/84 100 Intake and Output 04/06/24 04/07/24 04/07/24 22:59 06:59 14:59 Other: Weight 90.718 kg General appearance: The patient is alert, oriented, appears in no acute distress. HET: Head is normocephalic and atraumatic. Conjunctiva pink. Sclera anicteric. Neck: Supple without lymphadenopathy. Trachea midline. Heart: Regular. Lungs: Equal expansion, normal respiratory effort. Abdomen: Soft, right upper quadrant and epigastric tenderness, nondistended. Skin: No rashes. No jaundice. Extremities: Normal skin color and turgor. No pedal edema. Neurological: No focal deficits. Alert and oriented x3. Results CBC & Chem 7: 04/07/24 02:29 04/07/24 02:29 Labs: Abnormal Lab Results - Last 24 Hours (Table) 04/06/24 04/06/24 04/07/24 Range/Units 17:37 17:37 02:29 RBC 3.40 L (3.80-5.40) m/uL Hgb 10.3 L (11.4-16.0) gm/dL Hct 32.7 L (34.0-46.0) % Plt Count 124 L (150-450) k/uL Lymphocytes # 0.7 L (1.0-4.8) k/uL Sodium 135 L 134 L (137-145) mmol/L Chloride 94 L (96-109) mmol/L Carbon Dioxide 18 L 18.7 L (22-30) mmol/L Anion Gap 21.30 H (4.00-12.00) mmol/L BUN 22 H (7-17) mg/dL BUN/Creatinine Ratio 26.38 H (12.00-20.00) Ratio Glucose 63 L (70-110) mg/dL Calcium 10.5 H (8.4-10.2) mg/dL Total Bilirubin 1.5 H (0.2-1.3) mg/dL AST 257 H 207 H (14-36) U/L ALT 69 H 59 H (4-34) U/L Alkaline Phosphatase 263 H 232 H (38-126) U/L Albumin 3.6 L (3.8-4.9) g/dL Globulin 3.7 H (1.6-3.3) g/dL Albumin/Globulin Ratio 0.97 L (1.60-3.17) Ratio Amylase 148 H (30-110) U/L Lipase 1815 H 1248 H (23-300) U/L Comments: KUB x-ray reports nonspecific bowel gas pattern without radiographic evidence for acute process. Left renal sinus calculus suggested she has been Gallbladder ultrasound reports hydropic appearing gallbladder with dilated common bile duct measuring 12 mm. Suggestion of internal hyperechogenicity acidity within the common bile duct may represent choledocholithiasis further evaluation with dedicated MRCP or ERCP recommended. Hepatic steatosis. Assessment and Plan (1) Pancreatitis Narrative/Plan: 63-year-old female with a history of current alcohol use with admitting to pint of binta plus beer daily current smoker and marijuana user presenting with upper abdominal pain mostly in the epigastric region. She has elevated amylase and lipase consistent with acute pancreatitis as well as elevated LFTs which do appear in a cholestatic pattern however patient also has hepatic steatosis and may have underlying liver disease secondary to alcoholism. CBD is dilated at 1.2 cm need to consider possible choledocholithiasis. Labs are trending down. Will order MRCP for further evaluation of common bile duct and possible choled ocholithiasis. May need to consult to general surgery as well. Current Visit: Yes Status: Acute Code(s): K85.90 - ACUTE PANCREATITIS WITHOUT NECROSIS OR INFECTION, UNSP SNOMED Code(s): 92060415 (2) Abdominal pain Current Visit: Yes Status: Acute Code(s): R10.9 - UNSPECIFIED ABDOMINAL PAIN SNOMED Code(s): 46688557 (3) Alcohol abuse Current Visit: Yes Status: Acute Code(s): F10.10 - ALCOHOL ABUSE, UNCOMPLICATED SNOMED Code(s): 75796247 (4) Elevated LFTs Current Visit: Yes Status: Acute Code(s): R79.89 - OTHER SPECIFIED ABNORMAL FINDINGS OF BLOOD CHEMISTRY SNOMED Code(s): 362143104 Plan: 1. Continue symptomatic and supportive care 2. Pain medication as needed 3. Continue IV hydration 4. Patient can have clear liquid diet, n.p.o. after midnight 5. MRCP ordered 6. Protonix 40 mg daily for GI prophylaxis 7. CBC, CMP, lipase tomorrow 8. Further recommendations forthcoming based on clinical course Thank you for this consultation, we will continue to follow. Dr. Arabella Diallo I agree with the dictator's note, documented as a scribe by Trinity Jack.
--- NOTE | 2024-04-07 17:33 | P.PN ---
Subjective Progress Note Date: 04/07/24 HPI: Patient is a 63-year-old female with a history of EtOH abuse (w/ hx of DTs and withdrawal seizures), hypothyroidism, hypertension, anxiety and depression who came in for chest pressure and abdominal pain via EMS. She reports chest pressure has been occurring for a week that has been substernal constant with intensity of 8 out of 10 that is nonradiating with associated abdominal pain that is epigastric 8 out of 10 intensity that is constant and nonradiating. She also reports nausea with vomiting that is watery and small in volume, as well as diarrhea that is liquid stools with tarry black in color, and sweats. She denies shortness of breath, fever, new onset cough, jaundice, or recent travel. Patient reports drinking 1/2 pint of varying hard liquors daily for the past several years. Notes that due to her above symptoms, she only drank 2 beers earlier today around noon. In the emergency room, chest x-ray showed no acute cardiopulmonary process. EKG showed NSR rate of [address]-T changes QTc 439. KUB x-ray showed no acute pathologic process. Gallbladder ultrasound revealed hydropic gallbladder with dilated common bile duct measuring 12 mm.Laboratory evaluation revealed WBC 5.2 hemoglobin 10.3 platelet count 124, lipase elevated at 1815 amylase elevated 148. EtOH serum level is 186. Total bilirubin 1.5 AST 257 ALT 69 ALP 263 which all elevated. Calcium 10.5 which is elevated. Bicarb of 18 which is decreased. Patient afebrile on admission with 98.4. Heart rate 92 respiratory 18 on 2 L nasal cannula with O2 of 100%. Blood pressure elevated at 167/84. Progress note 04/07/2024 patient seen and examined at bedside. Patient continued to have abdominal pain, mild improvement with pain management. Awaiting MRCP. No other complaints at this time. Review of systems: Pertinent positives and negatives as discussed in HPI, a complete review of systems was performed and all other systems are negative. Physical examination: Vital signs reviewed General: non toxic, no distress, appears older than stated age Derm: no unusual rashes/lesions, warm Head: atraumatic, normocephalic, symmetric Eyes: EOMI, no lid lag, anicteric sclera, pupils equal round reactive to light ENT: Nose and ears atraumatic Neck: No cervical lymphadenopathy, trachea midline, supple Mouth: no lip lesion, mucus membranes slightly dry Cardiovascular: S1S2 reg, no murmur Lungs: CTA bilateral, no rhonchi, no rales, no accessory muscle use Abdominal: soft, epigastric and RUQ tenderness to palpation, no guarding Ext: muscle strength 5 out of 5 in all 4 extremities grossly, no gross muscle atrophy, no contractures, positive dorsalis pedis pulse bilateral, no edema Neuro: CN II-XI grossly intact, no gross focal neuro deficits Psych: Alert, oriented, appropriate affect and mood Assessment/Plan: #. Acute pancreatitis, EtOH abuse versus choledocholithiasis - Daily EtOH intake. Lipase 1815, alcohol level 186 -Continue with IVF NS 0.9% at 130 cc/h -Zofran 4 mg IV P every 8 as needed for nausea and vomiting -Ativan per [facility] protocol -Continue with oral B1 and multivitamins -Continue with Dilaudid for pain control -Cardiac monitoring and Fall precautions Pending MRCP results, consider consulting general surgery -GI following Monitor CBC and BMP -Advised on importance of cessation from EtOH abuse #. Bicytopenia, likely due to ongoing alcohol abuse -Monitor CBC as above #. Transaminitis, likely due to alcohol abuse Monitor CMP as above Chronic conditions: Hypothyroidism, anxiety, depression, hypertension GI prophylaxis: Protonix 40 mg IV OD DVT prophylaxis: Lovenox 40 mg SQ OD The patient is admitted with an anticipated more than than 2 midnight stay for evaluation of acute pancreatitis CODE STATUS: Full Discussed with: Patient Anticipated discharge place: Home I saw and evaluated the patient during the robertson and critical portions of this encounter, and discussed the case in detail with the resident author of this note, I agree with the Assessment and Plan, and my changes, if any, are highli ghted in blue. Objective - Vital Signs Vital signs: Vital Signs Temp 98.4 F 04/07/24 15:22 Pulse 103 H 04/07/24 15:22 Resp 16 04/07/24 15:22 BP 163/83 04/07/24 15:22 Pulse Ox 97 04/07/24 15:22 FiO2 Intake & Output 04/06/24 04/07/24 04/07/24 18:59 06:59 18:59 Weight 90.718 kg 90.718 kg - Labs CBC & Chem 7: 04/07/24 02:29 04/07/24 02:29 Labs: Abnormal Lab Results - Last 24 Hours (Table) 04/06/24 04/06/24 04/07/24 Range/Units 17:37 17:37 02:29 RBC 3.40 L 3.05 L (3.80-5.40) m/uL Hgb 10.3 L 9.3 L (11.4-16.0) gm/dL Hct 32.7 L 28.8 L (34.0-46.0) % RDW 14.9 H (11.5-14.5) % Plt Count 124 L 94 L (150-450) k/uL Lymphocytes # 0.7 L 0.82 L (1.0-4.8) k/uL Macrocytosis (manual) 2+ A Sodium 135 L (137-145) mmol/L Chloride (96-109) mmol/L Carbon Dioxide 18 L (22-30) mmol/L Anion Gap (4.00-12.00) mmol/L BUN 22 H (7-17) mg/dL BUN/Creatinine Ratio (12.00-20.00) Ratio Glucose (70-110) mg/dL Calcium 10.5 H (8.4-10.2) mg/dL Total Bilirubin 1.5 H (0.2-1.3) mg/dL AST 257 H (14-36) U/L ALT 69 H (4-34) U/L Alkaline Phosphatase 263 H (38-126) U/L Albumin (3.8-4.9) g/dL Globulin (1.6-3.3) g/dL Albumin/Globulin Ratio (1.60-3.17) Ratio Amylase 148 H (30-110) U/L Lipase 1815 H (23-300) U/L 04/07/24 Range/Units 02:29 RBC (3.80-5.40) m/uL Hgb (11.4-16.0) gm/dL Hct (34.0-46.0) % RDW (11.5-14.5) % Plt Count (150-450) k/uL Lymphocytes # (1.0-4.8) k/uL Macrocytosis (manual) Sodium 134 L (137-145) mmol/L Chloride 94 L (96-109) mmol/L Carbon Dioxide 18.7 L (22-30) mmol/L Anion Gap 21.30 H (4.00-12.00) mmol/L BUN (7-17) mg/dL BUN/Creatinine Ratio 26.38 H (12.00-20.00) Ratio Glucose 63 L (70-110) mg/dL Calcium (8.4-10.2) mg/dL Total Bilirubin (0.2-1.3) mg/dL AST 207 H (14-36) U/L ALT 59 H (4-34) U/L Alkaline Phosphatase 232 H (38-126) U/L Albumin 3.6 L (3.8-4.9) g/dL Globulin 3.7 H (1.6-3.3) g/dL Albumin/Globulin Ratio 0.97 L (1.60-3.17) Ratio Amylase (30-110) U/L Lipase 1248 H (23-300) U/L
[2024-04-07] MEDS: chlordiazePOXIDE 25 MG CAP PO SCH (18:34)
--- NOTE | 2024-04-08 10:55 | P.PN ---
Subjective Progress Note Date: 04/08/24 HPI: Patient is a 63-year-old female with a history of EtOH abuse (w/ hx of DTs and withdrawal seizures), hypothyroidism, hypertension, anxiety and depression who came in for chest pressure and abdominal pain via EMS. She reports chest pressure has been occurring for a week that has been substernal constant with intensity of 8 out of 10 that is nonradiating with associated abdominal pain that is epigastric 8 out of 10 intensity that is constant and nonradiating. She also reports nausea with vomiting that is watery and small in volume, as well as diarrhea that is liquid stools with tarry black in color, and sweats. She denies shortness of breath, fever, new onset cough, jaundice, or recent travel. Patient reports drinking 1/2 pint of varying hard liquors daily for the past several years. Notes that due to her above symptoms, she only drank 2 beers earlier today around noon. In the emergency room, chest x-ray showed no acute cardiopulmonary process. EKG showed NSR rate of [address]-T changes QTc 439. KUB x-ray showed no acute pathologic process. Gallbladder ultrasound revealed hydropic gallbladder with dilated common bile duct measuring 12 mm.Laboratory evaluation revealed WBC 5.2 hemoglobin 10.3 platelet count 124, lipase elevated at 1815 amylase elevated 148. EtOH serum level is 186. Total bilirubin 1.5 AST 257 ALT 69 ALP 263 which all elevated. Calcium 10.5 which is elevated. Bicarb of 18 which is decreased. Patient afebrile on admission with 98.4. Heart rate 92 respiratory 18 on 2 L nasal cannula with O2 of 100%. Blood pressure elevated at 167/84. Progress note 04/08/2024 patient seen and examined at bedside. Patient with improving abdominal pain with pain management. She is having some mild tremors. MRCP today. No other complaints at this time. Review of systems: Pertinent positives and negatives as discussed in HPI, a complete review of systems was performed and all other systems are negative. Physical examination: Vital signs reviewed General: non toxic, no distress, appears older than stated age Derm: no unusual rashes/lesions, warm Head: atraumatic, normocephalic, symmetric Eyes: EOMI, no lid lag, anicteric sclera, pupils equal round reactive to light ENT: Nose and ears atraumatic Neck: No cervical lymphadenopathy, trachea midline, supple Mouth: no lip lesion, mucus membranes slightly dry Cardiovascular: S1S2 reg, no murmur Lungs: CTA bilateral, no rhonchi, no rales, no accessory muscle use Abdominal: soft, mild epigastric and RUQ tenderness to palpation, no guarding Ext: muscle strength 5 out of 5 in all 4 extremities grossly, no gross muscle atrophy, no contractures, positive dorsalis pedis pulse bilateral, no edema Neuro: CN II-XI grossly intact, no gross focal neuro deficits Psych: Alert, oriented, appropriate affect and mood Labs reviewed todayWBC 8.36, hemoglobin 8.9, platelets 76, creatinine 1.4, lipase 1460 Assessment/Plan: #. Acute pancreatitis, alcoholic versus gallstone Alcohol dependence, impending alcohol withdrawal Alcohol intoxication - Daily EtOH intake. Initial lipase 1815, alcohol level 186 -Continue with LR at 125 cc/h -Zofran 4 mg IV P every 8 as needed for nausea and vomiting -Ativan IV per [facility] protocol, monitor for sedation Librium 25 mg 3 times daily, begin taper in 24 hours -Continue with oral B1 100 mg daily and multivitamins -Continue with Dilaudid for pain control IV, monitor for sedation -Cardiac monitoring and Fall precautions Pending MRCP results -GI following Monitor CBC and BMP -Advised on importance of cessation from EtOH abuse Acute kidney injury -Renal ultrasound ordered -Continue lactated Ringer 125 cc an hour -Lisinopril discontinued #. Bicytopenia, likely due to ongoing alcohol abuse -Monitor CBC as above #. Transaminitis, likely due to alcohol abuse Monitor CMP as above Chronic conditions: Hypothyroidism, anxiety, depression, hypertension GI prophylaxis: Protonix 40 mg IV OD DVT prophylaxis: Lovenox 40 mg SQ OD CODE STATUS: Full Discussed with: Patient Anticipated discharge place: Home I have seen and evaluated the patient today. Discussed with the resident and agree with the residents finding and plan as documented in the resident's note. Changes highlighted in blue font. Objective - Vital Signs Vital signs: Vital Signs Temp 98.5 F 04/08/24 07:00 Pulse 94 04/08/24 07:00 Resp 20 04/08/24 08:00 BP 137/80 04/08/24 07:00 Pulse Ox 95 04/08/24 07:00 FiO2 Intake & Output 04/07/24 04/08/24 04/08/24 18:59 06:59 18:59 Weight 90.718 kg Other: Voiding Method Bedside Commode # Voids 1 - Labs CBC & Chem 7: 04/08/24 05:49 04/08/24 05:49
[2024-04-08 11:00] LABS: HCT 27.5 % (37.2-46.3); HGB 8.9 g/dL (12.0-15.0); Immature Platelet Fraction 4.8 % (1.1-6.1); MCH 31.1 pg (27.0-32.0); MCHC 32.4 g/dL (32.0-37.0); MCV 96.2 FL (80.0-97.0); Mean Platelet Volume 11.1 FL (9.5-12.2); NRBC Per 100 WBC 0 X 10*3/uL (0.00-0.01); Platelet Count 76 X 10*3/uL (140-440); RBC 2.86 X 10*6/uL (4.10-5.20); RDW 14.8 % (11.5-14.5); WBC 8.36 X 10*3/uL (4.50-10.00)
[2024-04-08 11:13] LABS: Lipase 1460 U/L (14-63)
[2024-04-08 11:16] LABS: ALT 40 U/L (8-44); AST 110 U/L (13-35); Albumin 3.2 g/dL (3.8-4.9); Albumin/Globulin Ratio 0.97 Ratio (1.60-3.17); Alkaline Phosphatase 198 U/L (41-126); BUN/Creat Ratio 24.21 Ratio (12.00-20.00); Blood Urea Nitrogen 33.9 mg/dL (9.0-27.0); Calcium 9.5 mg/dL (8.7-10.3); Carbon Dioxide 22.8 mmol/L (21.6-31.8); Chloride 99 mmol/L (96-109); Globulin 3.3 g/dL (1.6-3.3); Glucose 99 mg/dL (70-110); Potassium 3.7 mmol/L (3.5-5.5); Sodium 135 mmol/L (135-145); Total Bilirubin 0.8 mg/dL (0.3-1.2); Total Protein 6.5 g/dL (6.2-8.2)
[2024-04-08] MEDS: LACTATED RINGERS 1,000 ML IV SCH (11:24)
--- NOTE | 2024-04-08 12:22 | MR ---
EXAMINATION TYPE: MRI abdomen without contrast MR MRCP DATE OF EXAM: 04/08/2024 COMPARISON: Gallbladder ultrasound 04/06/2024 HISTORY: 63-year-old female Acute pancreatitis, elevated LFTs, dilated CBD. Technique: Multiplanar, multisequence images of the abdomen are obtained without IV contrast. Additio nal highly T2 weighted images of the pancreatic or biliary system for MRCP. Rotational 3-D reconstruc tions generated on dedicated independent workstation. FINDINGS: The heart is borderline in size without pericardial effusion. There appear to be trace pleural effusi ons. There may be mild generalized anasarca change. Moderate-sized hiatal hernia noted. Liver enlarged at 20.6 cm. There is diffuse signal loss of the liver on out of phase T1-weighted imag es compatible with fatty infiltration. The bile duct is dilated up to 1.3 cm in caliber. Lower bile duct shows some tapering of the caliber of 9 mm. Mild to moderate smooth intrahepatic biliary ductal dilatation is also present. The gallbladder is mildly hydropic distended up to 4.5 cm wide. No felice surrounding inflammation or wall thickening is seen. No discrete gallstones are identified. No discrete filling defect within the bile duct is appreciated Trace perisplenic ascites fluid noted. Additional trace fluid adjacent to the gallbladder and inferio r liver. No abdominal lymphadenopathy or gross bowel abnormality is seen. The adrenal glands, kidneys, spleen, pancreas show no gross abnormality. Slight dextroconvex curvature of the lumbar spine. IMPRESSION: 1. Moderate intrahepatic and extrahepatic biliary ductal dilatation. Bile duct dilated up to 1.3 cm w ith some distal tapering down to 9 mm. However, no obstructing lesion or filling defect is appreciate d. 2. Mildly hydropic gallbladder could be due to fasting state. Correlate with alkaline phosphatase and bilirubin levels. While findings may be chronic for the patient, an ampullary stricture and cholesta sis are in the differential. 3. Hepatomegaly at 20.6 cm with moderate to severe hepatic steatosis. Appropriate clinical management is advised. 4. Trace bilateral pleural effusions with mild generalized anasarca and trace abdominal ascites fluid . Correlate for third spacing/fluid overload state or mild CHF. 5. Moderate-sized hiatal hernia. [facility], , 04/08/2024 12:20 PM
--- NOTE | 2024-04-08 15:43 | P.PN ---
Subjective Progress Note Date: 04/08/24 Principal diagnosis: Pancreatitis This is a pleasant 63-year-old female with a past medical history including alcohol abuse and admits to drinking daily a pint of binta and some beer for many years, hypertension and thyroid disorder who presented to the emergency department with complaints of abdominal pain mostly in the epigastric region. States abdominal pain is associated with nausea and vomiting and started about a week ago but progressively got worse. On admission she had blood alcohol level 186, elevated amylase and lipase consistent with pancreatitis as well as elevated LFTs. She underwent an ultrasound of the abdomen showing a dilated common bile duct of 1.2 cm with possible debris. Gastroenterology was consulted for dilated CBD. She states abdominal pain still present mostly in the epigastric region, no nausea or vomiting at this time. She denies any fevers, chills, no history of previous pancreatitis or gallbladder issues. 04/08/2024 Patient seen and examined today as a follow-up. States she is still having abdominal pain although it is better than yesterday. She went down for her MRCP today with findings of intra hepatic and extrahepatic ductal dilation with bile duct dilated up to 1.3 cm with distal tapering but no obstructing lesion or filling defect. Total bilirubin and LFTs continue to trend down. Lipase 1460. Patient is afebrile Objective - Vital Signs Vital signs: Vital Signs Temp 98.5 F 04/08/24 07:00 Pulse 94 04/08/24 07:00 Resp 20 04/08/24 13:04 BP 137/80 04/08/24 07:00 Pulse Ox 95 04/08/24 07:00 FiO2 Intake & Output 04/07/24 04/08/24 04/08/24 18:59 06:59 18:59 Intake Total 300 Balance 300 Weight 90.718 kg Intake: Oral 300 Other: Voiding Method Bedside Commode # Voids 1 2 - Exam General appearance: The patient is alert, oriented, appears in no acute distress. HET: Head is normocephalic and atraumatic. Conjunctiva pink. Sclera anicteric. Neck: Supple without lymphadenopathy. Abdomen: Soft, right upper quadrant and epigastric tenderness, nondistended. Extremities: Normal skin color and turgor. No pedal edema Skin: No rashes, no jaundice Neurological: No focal deficits. Alert and oriented. - Labs CBC & Chem 7: 04/08/24 05:49 04/08/24 05:49 Labs: Abnormal Lab Results - Last 24 Hours (Table) 04/08/24 04/08/24 Range/Units 05:49 05:49 RBC 2.86 L (4.10-5.20) X 10*6/uL Hgb 8.9 L (12.0-15.0) g/dL Hct 27.5 L (37.2-46.3) % RDW 14.8 H (11.5-14.5) % Plt Count 76 L (140-440) X 10*3/uL Anion Gap 13.20 H (4.00-12.00) mmol/L BUN 33.9 H (9.0-27.0) mg/dL Est GFR (CKD-EPI) 43 L (>=60) BUN/Creatinine Ratio 24.21 H (12.00-20.00) Ratio AST 110 H (13-35) U/L Alkaline Phosphatase 198 H (41-126) U/L Albumin 3.2 L (3.8-4.9) g/dL Albumin/Globulin Ratio 0.97 L (1.60-3.17) Ratio Lipase 1460 H (14-63) U/L Assessment and Plan (1) Pancreatitis Narrative/Plan: 63-year-old female with a history of current [facility] use [facility] current smoker and marijuana user presenting with upper abdominal pain mostly in the epigastric region. She has elevated amylase and lipase consistent with acute pancreatitis as well as elevated LFTs which do appear in a cholestatic pattern however patient also has hepatic steatosis and may have underlying liver disease secondary to alcoholism. CBD is dilated at 1.2 cm need to consider possible choledocholithiasis. Labs are trending down. MRCP PE completed showing moderate intrahepatic and extrahepatic ductal dilation and CBD dilation up to 1.3 cm without any evidence of obstructed lesion or filling defect. There is mildly hydropic gallbladder. 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 No filling defect noted therefore there is no indication for any ERCP. Likely alcohol induced pancreatitis with elevated LFTs secondary to underlying alcohol liver disease. No plans on ERCP. Continue to treat symptomatically. Current Visit: Yes Status: Acute Code(s): K85.90 - ACUTE PANCREATITIS WITHOUT NECROSIS OR INFECTION, UNSP SNOMED Code(s): 70666862 (2) Abdominal pain Current Visit: Yes Status: Acute Code(s): R10.9 - UNSPECIFIED ABDOMINAL PAIN SNOMED Code(s): 93313867 (3) Alcohol abuse Current Visit: Yes Status: Acute Code(s): F10.10 - ALCOHOL ABUSE, UNCOMPLICATED SNOMED Code(s): 11472372 (4) Elevated LFTs Narrative/Plan: Trending down Current Visit: Yes Status: Acute Code(s): R79.89 - OTHER SPECIFIED ABNORMAL FINDINGS OF BLOOD CHEMISTRY SNOMED Code(s): 260116657 Plan: 1. Continue symptomatic and supportive care 2. Pain medication as needed 3. Continue IV hydration 4. Clear liquid diet, advance as tolerated 5. MRCP ordered and reviewed. Although there is intrahepatic and extrahepatic biliary dilation, CBD 1.3 cm there is no concern for lesion or filling defect. ERCP is not indicated. 6. Protonix 40 mg daily for GI prophylaxis 7. Repeat CMP tomorrow Thank you for this consultation, we will continue to follow. Dr. Arabella Diallo I agree with the dictator's note, documented as a scribe by Trinity Jack.
--- NOTE | 2024-04-08 15:43 | US ---
EXAMINATION TYPE: US kidneys/renal and bladder DATE OF EXAM: 04/08/2024 COMPARISON: MRCP same day CLINICAL INDICATION: Female, 63 years old with history of DEVANG; Abnormal labs TECHNIQUE: Grayscale and color Doppler imaging of the bilateral kidneys and urinary bladder: FINDINGS: EXAM MEASUREMENTS: Right Kidney: 10.4 x 5.2 x 4.3 cm Left Kidney: 11.5 x 6.3 x 6.2 cm Limited due to bowel gas Right Kidney: No appreciable hydronephrosis or masses seen, limited visualization Left Kidney: No appreciable hydronephrosis or masses seen, limited visualization. A 2.1 cm cortical l obulation mid to lower pole. No lesion seen on the patient's MRCP. Bladder: Under distention limits evaluation. Bilateral Jets not seen Incidental markedly echogenic liver parenchyma. IMPRESSION: 1. Bowel gas significantly limiting the exam. Very limited detailed assessment of the renal parenchym a. No evidence of hydronephrosis. 2. Underdistention of the bladder limits its evaluation. 3. Severe hepatic steatosis. Appropriate clinical management is advised. [facility], , 04/08/2024 3:40 PM
[2024-04-09 08:57] LABS: HCT 24.8 % (37.2-46.3); HGB 7.9 g/dL (12.0-15.0); MCH 30.4 pg (27.0-32.0); MCHC 31.9 g/dL (32.0-37.0); MCV 95.4 FL (80.0-97.0); Mean Platelet Volume 11.1 FL (9.5-12.2); NRBC Per 100 WBC 0 X 10*3/uL (0.00-0.01); Platelet Count 83 X 10*3/uL (140-440); RDW 14.8 % (11.5-14.5); WBC 6.63 X 10*3/uL (4.50-10.00)
[2024-04-09 09:22] LABS: ALT 34 U/L (8-44); AST 87 U/L (13-35); Albumin 3.1 g/dL (3.8-4.9); Alkaline Phosphatase 180 U/L (41-126); Blood Urea Nitrogen 29.1 mg/dL (9.0-27.0); Calcium 9.7 mg/dL (8.7-10.3); Carbon Dioxide 22.8 mmol/L (21.6-31.8); Chloride 99 mmol/L (96-109); Globulin 3.1 g/dL (1.6-3.3); Glucose 100 mg/dL (70-110); Potassium 3.5 mmol/L (3.5-5.5); Sodium 133 mmol/L (135-145); Total Bilirubin 0.8 mg/dL (0.3-1.2); Total Protein 6.2 g/dL (6.2-8.2)
[2024-04-09 09:51] LABS: Lipase 653 U/L (14-63)
[2024-04-09] MEDS: oxyCODONE-APAP 10-325MG 1 EACH TAB PO PRN (11:19)
--- NOTE | 2024-04-09 13:12 | P.PN ---
Subjective Progress Note Date: 04/09/24 HPI: Patient is a 63-year-old female with a history of EtOH abuse (w/ hx of DTs and withdrawal seizures), hypothyroidism, hypertension, anxiety and depression who came in for chest pressure and abdominal pain via EMS. She reports chest pressure has been occurring for a week that has been substernal constant with intensity of 8 out of 10 that is nonradiating with associated abdominal pain that is epigastric 8 out of 10 intensity that is constant and nonradiating. She also reports nausea with vomiting that is watery and small in volume, as well as diarrhea that is liquid stools with tarry black in color, and sweats. She denies shortness of breath, fever, new onset cough, jaundice, or recent travel. Patient reports drinking 1/2 pint of varying hard liquors daily for the past several years. Notes that due to her above symptoms, she only drank 2 beers earlier today around noon. In the emergency room, chest x-ray showed no acute cardiopulmonary process. EKG showed NSR rate of [address]-T changes QTc 439. KUB x-ray showed no acute pathologic process. Gallbladder ultrasound revealed hydropic gallbladder with dilated common bile duct measuring 12 mm.Laboratory evaluation revealed WBC 5.2 hemoglobin 10.3 platelet count 124, lipase elevated at 1815 amylase elevated 148. EtOH serum level is 186. Total bilirubin 1.5 AST 257 ALT 69 ALP 263 which all elevated. Calcium 10.5 which is elevated. Bicarb of 18 which is decreased. Patient afebrile on admission with 98.4. Heart rate 92 respiratory 18 on 2 L nasal cannula with O2 of 100%. Blood pressure elevated at 167/84. Progress note 04/09/2024 patient seen and examined at bedside. Patient with improving abdominal pain with pain management. She is having some mild tremors. Full liquid diet today tolerated with some discomfort, will attempt to advance as tolerated. Review of systems: Pertinent positives and negatives as discussed in HPI, a complete review of systems was performed and all other systems are negative. Physical examination: Vital signs reviewed General: non toxic, no distress, appears older than stated age Derm: no unusual rashes/lesions, warm Head: atraumatic, normocephalic, symmetric Eyes: EOMI, no lid lag, anicteric sclera, pupils equal round reactive to light ENT: Nose and ears atraumatic Neck: No cervical lymphadenopathy, trachea midline, supple Mouth: no lip lesion, mucus membranes slightly dry Cardiovascular: S1S2 reg, no murmur Lungs: CTA bilateral, no rhonchi, no rales, no accessory muscle use Abdominal: soft, mild epigastric tenderness to palpation, no guarding Ext: muscle strength 5 out of 5 in all 4 extremities grossly, no gross muscle atrophy, no contractures, positive dorsalis pedis pulse bilateral, no edema Neuro: CN II-XI grossly intact, no gross focal neuro deficits Psych: Alert, oriented, appropriate affect and mood Labs reviewed todayWBC 6.63, hemoglobin 7.9, platelets 83, sodium 133, pota ssium 3.5, bicarb 22.8, BUN 29.1, creatinine 1.0, AST 87, ALP 180, lipase 653 Imaging reviewed todayMRCP with no obstruction or filling deficit of bile duct Assessment/Plan: #. Acute pancreatitis, alcoholic Alcohol dependence, impending alcohol withdrawal Alcohol intoxication - Daily EtOH intake. Initial lipase 1815, alcohol level 186 -Continue with LR at 125 cc/h -Zofran 4 mg IV P every 8 as needed for nausea and vomiting -Ativan IV per [facility] protocol, monitor for sedation Librium 25 mg 3 times daily, begin taper in 24 hours -Continue with oral B1 100 mg daily and multivitamins -Continue with Dilaudid for pain control IV, monitor for sedation, attempt to wean -Begin Percocet 103 25 p.o. every 4 hour as needed -Cardiac monitoring and Fall precautions MRCP with no obstruction or filling deficit of bile duct -GI following Monitor CBC and BMP -Advised on importance of cessation from EtOH abuse #Acute kidney injury -Renal ultrasound - limited visualization -Continue lactated Ringer 125 cc an hour -Lisinopril discontinued #. Bicytopenia, likely due to ongoing alcohol abuse -Monitor CBC as above #. Transaminitis, likely due to alcohol abuse Monitor CMP as above Chronic conditions: Hypothyroidism, anxiety, depression, hypertension GI prophylaxis: Protonix 40 mg IV OD DVT prophylaxis: Lovenox 40 mg SQ OD CODE STATUS: Full Discussed with: Patient Anticipated discharge place: Home I saw and evaluated the patient during the [place]ber[place] and critical portions of this encounter along side the resident. The assessment and plan was discussed with the resident as below. Patient with improving abdominal pain but still rates it /. Tolerating small amount of FLD. Acute pancreatitis: Zofran 4 mg IV Q8H PRN N/V. Protonix 40 mg IV QD. LR at 125 cc/hr. Dilaudid 0.5-1 mg IV Q3H PRN per pain scale. Add Percocet 10 Q4H PRN. Discussed with RN, attempt Percocet and use Dilaudid only for severe pain. FLD a nd advance as tolerated. GI on board. EtOH intoxication with withdrawal: CIWA protocol with Ativan as needed. Continue Librium 25 mg PO TID. Prerenal azotemia: Renal US negative for obstruction. IV hydration as above. Bicytopenia due to EtOH abuse: Transfuse if Hg < 7 or Plt < 10. Transaminitis due to EtOH abuse: MRCP with no obstructing lesion. Hypothyroidism: Synthroid 137 mg PO QD. Anxiety and Depression: Klonopin 0.5 mg PO QD PRN. Lexapro 20 mg PO QD. Hypertension: Lisinopril on hold due to DEVANG. Objective - Vital Signs Vital signs: Vital Signs Temp 98.5 F 04/09/24 07:00 Pulse 86 04/09/24 07:00 Resp 16 04/09/24 08:00 BP 136/67 04/09/24 07:00 Pulse Ox 98 04/09/24 07:00 FiO2 Intake & Output 04/08/24 04/09/24 04/09/24 18:59 06:59 18:59 Intake Total 418 Balance 418 Intake: Oral 418 Other: Voiding Method Bedside Commode Bedside Commode Bedside Commode # Voids 2 2 - Labs CBC & Chem 7: 04/09/24 04:18 04/09/24 04:18 Labs: Abnormal Lab Results - Last 24 Hours (Table) 04/09/24 04/09/24 Range/Units 04:18 04:18 RBC 2.60 L (4.10-5.20) X 10*6/uL Hgb 7.9 L (12.0-15.0) g/dL Hct 24.8 L (37.2-46.3) % MCHC 31.9 L (32.0-37.0) g/dL RDW 14.8 H (11.5-14.5) % Plt Count 83 L (140-440) X 10*3/uL Sodium 133 L (135-145) mmol/L BUN 29.1 H (9.0-27.0) mg/dL BUN/Creatinine Ratio 29.10 H (12.00-20.00) Ratio AST 87 H (13-35) U/L Alkaline Phosphatase 180 H (41-126) U/L Albumin 3.1 L (3.8-4.9) g/dL Albumin/Globulin Ratio 1.00 L (1.60-3.17) Ratio Lipase 653 H (14-63) U/L
--- NOTE | 2024-04-09 15:11 | P.PN ---
Subjective Progress Note Date: 04/09/24 Principal diagnosis: Pancreatitis This is a pleasant 63-year-old female with a past medical history including alcohol abuse and admits to drinking daily a pint of binta and some beer for many years, hypertension and thyroid disorder who presented to the emergency department with complaints of abdominal pain mostly in the epigastric region. States abdominal pain is associated with nausea and vomiting and started about a week ago but progressively got worse. On admission she had blood alcohol level 186, elevated amylase and lipase consistent with pancreatitis as well as elevated LFTs. She underwent an ultrasound of the abdomen showing a dilated common bile duct of 1.2 cm with possible debris. Gastroenterology was consulted for dilated CBD. She states abdominal pain still present mostly in the epigastric region, no nausea or vomiting at this time. She denies any fevers, chills, no history of previous pancreatitis or gallbladder issues. 04/08/2024 Patient seen and examined today as a follow-up. States she is still having abdominal pain although it is better than yesterday. She went down for her MRCP today with findings of intra hepatic and extrahepatic ductal dilation with bile duct dilated up to 1.3 cm with distal tapering but no obstructing lesion or filling defect. Total bilirubin and LFTs continue to trend down. Lipase 1460. Patient is afebrile 03/10/2024 Patient seen and examined today as a follow-up. States abdominal pain is improving. She did have full liquids and quite a bit for breakfast and states now abdominal pain is a little worse. No nausea or vomiting. WBC 6.6 hemoglobin 7.9 platelet count 83,000 sodium 133 potassium 3.4 BUN 29 creatinine 1.0 total bilirubin 0.8 AST 87 ALT 34 alkaline phosphatase 180 lipase 653 Objective - Vital Signs Vital signs: Vital Signs Temp 98.5 F 04/09/24 07:00 Pulse 86 04/09/24 07:00 Resp 16 04/09/24 07:00 BP 136/67 04/09/24 07:00 Pulse Ox 98 04/09/24 07:00 FiO2 Intake & Output 04/08/24 04/09/24 04/09/24 18:59 06:59 18:59 Intake Total 418 Balance 418 Intake: Oral 418 Other: Voiding Method Bedside Commode Bedside Commode # Voids 2 2 - Exam General appearance: The patient is alert, oriented, appears in no acute dis tress. HET: Head is normocephalic and atraumatic. Conjunctiva pink. Sclera anicteric. Neck: Supple without lymphadenopathy. Abdomen: Soft, right upper quadrant and epigastric tenderness, nondistended. Extremities: Normal skin color and turgor. No pedal edema Skin: No rashes, no jaundice Neurological: No focal deficits. Alert and oriented. - Labs CBC & Chem 7: 04/09/24 04:18 04/09/24 04:18 Labs: Abnormal Lab Results - Last 24 Hours (Table) 04/08/24 04/08/24 04/09/24 Range/Units 05:49 05:49 04:18 RBC 2.86 L 2.60 L (4.10-5.20) X 10*6/uL Hgb 8.9 L 7.9 L (12.0-15.0) g/dL Hct 27.5 L 24.8 L (37.2-46.3) % MCHC 31.9 L (32.0-37.0) g/dL RDW 14.8 H 14.8 H (11.5-14.5) % Plt Count 76 L 83 L (140-440) X 10*3/uL Sodium (135-145) mmol/L Anion Gap 13.20 H (4.00-12.00) mmol/L BUN 33.9 H (9.0-27.0) mg/dL Est GFR (CKD-EPI) 43 L (>=60) BUN/Creatinine Ratio 24.21 H (12.00-20.00) Ratio AST 110 H (13-35) U/L Alkaline Phosphatase 198 H (41-126) U/L Albumin 3.2 L (3.8-4.9) g/dL Albumin/Globulin Ratio 0.97 L (1.60-3.17) Ratio Lipase 1460 H (14-63) U/L 04/09/24 Range/Units 04:18 RBC (4.10-5.20) X 10*6/uL Hgb (12.0-15.0) g/dL Hct (37.2-46.3) % MCHC (32.0-37.0) g/dL RDW (11.5-14.5) % Plt Count (140-440) X 10*3/uL Sodium 133 L (135-145) mmol/L Anion Gap (4.00-12.00) mmol/L BUN 29.1 H (9.0-27.0) mg/dL Est GFR (CKD-EPI) (>=60) BUN/Creatinine Ratio 29.10 H (12.00-20.00) Ratio AST 87 H (13-35) U/L Alkaline Phosphatase 180 H (41-126) U/L Albumin 3.1 L (3.8-4.9) g/dL Albumin/Globulin Ratio 1.00 L (1.60-3.17) Ratio Lipase (14-63) U/L Assessment and Plan (1) Pancreatitis Narrative/Plan: 63-year-old female with a history of current [facility] current smoker and marijuana user presenting with upper abdominal pain mostly in the epigastric region. She has elevated amylase and lipase consistent with acute pancreatitis as well as elevated LFTs which do appear in a cholestatic pattern however patient also has hepatic steatosis and may have underlying liver disease secondary to alcoholism. CBD is dilated at 1.2 cm need to consider possible choledocholithiasis. Labs are trending down. MRCP PE completed showing moderate intrahepatic and extrahepatic ductal dilation and CBD dilation up to 1.3 cm without any evidence of obstructed lesion or filling defect. There is mildly hydropic gallbladder. 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 No filling defect noted therefore there is no indication for any ERCP. Likely alcohol induced pancreatitis with elevated LFTs secondary to underlying alcohol liver disease. No plans on ERCP. Continue to treat symptomatically. Current Visit: Yes Status: Acute Code(s): K85.90 - ACUTE PANCREATITIS WITHOUT NECROSIS OR INFECTION, UNSP SNOMED Code(s): 79996502 (2) Abdominal pain Current Visit: Yes Status: Acute Code(s): R10.9 - UNSPECIFIED ABDOMINAL PAIN SNOMED Code(s): 04658516 (3) Alcohol abuse Current Visit: Yes Status: Acute Code(s): F10.10 - ALCOHOL ABUSE, UNCOMPLICATED SNOMED Code(s): 08976350 (4) Elevated LFTs Narrative/Plan: Trending down Current Visit: Yes Status: Acute Code(s): R79.89 - OTHER SPECIFIED ABNORMAL FINDINGS OF BLOOD CHEMISTRY SNOMED Code(s): 492771473 (5) Normochromic anemia Narrative/Plan: Likely anemia of chronic disease secondary to underlying alcohol liver cirrhosis. Current Visit: Yes Status: Acute Code(s): D64.9 - ANEMIA, UNSPECIFIED SNOMED Code(s): 24658521 (6) Thrombocytopenia Current Visit: Yes Status: Acute Code(s): D69.6 - THROMBOCYTOPENIA, UNSPECIFIED SNOMED Code(s): 215951508 Plan: 1. Continue symptomatic and supportive care 2. Continue full liquid diet, advance as tolerated 3. Daily CBC, transfuse for hemoglobin less than 7 4. Continue pain medication as needed 5. Antiemetics as needed 6. Protonix 40 mg daily for GI prophylaxis 7. No indication for ERCP 8. Encourage ambulation 9. Discussed with patient importance of alcohol abstinence Thank you for this consultation, we will continue to follow. Dr. Arabella Diallo I agree with the dictator's note, documented as a scribe by Trinity Jack.
[2024-04-10 04:22] VITALS: BP 113/69
[2024-04-10 08:12] VITALS: PULSE 79; RESP 18; TEMP 97.6
[2024-04-10 09:04] LABS: ALT 31 U/L (8-44); AST 73 U/L (13-35); Albumin 2.9 g/dL (3.8-4.9); Albumin/Globulin Ratio 0.97 Ratio (1.60-3.17); Alkaline Phosphatase 179 U/L (41-126); BUN/Creat Ratio 26.22 Ratio (12.00-20.00); Blood Urea Nitrogen 23.6 mg/dL (9.0-27.0); Carbon Dioxide 22.9 mmol/L (21.6-31.8); Chloride 99 mmol/L (96-109); Glucose 98 mg/dL (70-110); Potassium 3.7 mmol/L (3.5-5.5); Sodium 132 mmol/L (135-145); Total Bilirubin 0.7 mg/dL (0.3-1.2); Total Protein 5.9 g/dL (6.2-8.2)
[2024-04-10 09:17] LABS: Lipase 381 U/L (14-63)
[2024-04-10 10:11] LABS: HCT 24.8 % (37.2-46.3); MCH 30.9 pg (27.0-32.0); MCHC 32.3 g/dL (32.0-37.0); MCV 95.8 FL (80.0-97.0); Mean Platelet Volume 10.9 FL (9.5-12.2); NRBC Per 100 WBC 0 X 10*3/uL (0.00-0.01); Platelet Count 131 X 10*3/uL (140-440); RBC 2.59 X 10*6/uL (4.10-5.20); RBC Morphology Normal (Normal); RDW 14.7 % (11.5-14.5); WBC 5.98 X 10*3/uL (4.50-10.00)
[2024-04-10] MEDS: SENNOSIDES 8.6 MG TAB PO PRN (11:28)
--- NOTE | 2024-04-10 11:43 | P.PN ---
Subjective Progress Note Date: 04/10/24 Principal diagnosis: Pancreatitis This is a pleasant 63-year-old female with a past medical history including alcohol abuse and admits to drinking daily a pint of binta and some beer for many years, hypertension and thyroid disorder who presented to the emergency department with complaints of abdominal pain mostly in the epigastric region. States abdominal pain is associated with nausea and vomiting and started about a week ago but progressively got worse. On admission she had blood alcohol level 186, elevated amylase and lipase consistent with pancreatitis as well as elevated LFTs. She underwent an ultrasound of the abdomen showing a dilated common bile duct of 1.2 cm with possible debris. Gastroenterology was consulted for dilated CBD. She states abdominal pain still present mostly in the epigastric region, no nausea or vomiting at this time. She denies any fevers, chills, no history of previous pancreatitis or gallbladder issues. 04/08/2024 Patient seen and examined today as a follow-up. States she is still having abdominal pain although it is better than yesterday. She went down for her MRCP today with findings of intra hepatic and extrahepatic ductal dilation with bile duct dilated up to 1.3 cm with distal tapering but no obstructing lesion or filling defect. Total bilirubin and LFTs continue to trend down. Lipase 1460. Patient is afebrile 03/10/2024 Patient seen and examined today as a follow-up. States abdominal pain is improving. She did have full liquids and quite a bit for breakfast and states now abdominal pain is a little worse. No nausea or vomiting. WBC 6.6 hemoglobin 7.9 platelet count 83,000 sodium 133 potassium 3.4 BUN 29 creatinine 1.0 total bilirubin 0.8 AST 87 ALT 34 alkaline phosphatase 180 lipase 653 03/11/2024 Patient seen and examined today as a follow-up. She was sleeping soundly. Woke patient up states that she is still having abdominal pain. She is tolerating full liquid diet and diet was advanced per medical team. Denies any nausea or vomiting. She has been afebrile. LFTs continue to trend down as well as lipase. Now 381 Objective - Vital Signs Vital signs: Vital Signs Temp 98.0 F 04/10/24 02:00 Pulse 80 04/10/24 02:00 Resp 15 04/10/24 02:00 BP 113/69 04/10/24 02:00 Pulse Ox 98 04/10/24 02:00 FiO2 Intake & Output 04/09/24 04/09/24 04/10/24 06:59 18:59 06:59 Intake Total 697 Balance 697 Intake: Oral 697 Other: Voiding Method Bedside Commode Bedside Commode Bedside Commode # Voids 2 2 2 - Exam General appearance: The patient is alert, oriented, appears in no acute distress. HET: Head is normocephalic and atraumatic. Conjunctiva pink. Sclera anicteric. Neck: Supple without lymphadenopathy. Abdomen: Soft, mild epigastric tenderness, nondistended. Extremities: Normal skin color and turgor. No pedal edema Skin: No rashes, no jaundice Neurological: No focal deficits. Alert and oriented. - Labs CBC & Chem 7: 04/10/24 05:18 04/10/24 05:18 Labs: Abnormal Lab Results - Last 24 Hours (Table) 04/09/24 04/09/24 Range/Units 04:18 04:18 RBC 2.60 L (4.10-5.20) X 10*6/uL Hgb 7.9 L (12.0-15.0) g/dL Hct 24.8 L (37.2-46.3) % MCHC 31.9 L (32.0-37.0) g/dL RDW 14.8 H (11.5-14.5) % Plt Count 83 L (140-440) X 10*3/uL Sodium 133 L (135-145) mmol/L BUN 29.1 H (9.0-27.0) mg/dL BUN/Creatinine Ratio 29.10 H (12.00-20.00) Ratio AST 87 H (13-35) U/L Alkaline Phosphatase 180 H (41-126) U/L Albumin 3.1 L (3.8-4.9) g/dL Albumin/Globulin Ratio 1.00 L (1.60-3.17) Ratio Lipase 653 H (14-63) U/L Assessment and Plan (1) Pancreatitis Narrative/Plan: 63-year-old female with a [facility] of [facility] daily current smoker and marijuana user presenting with upper abdominal pain mostly in the epigastric region. She has elevated amylase and lipase consistent with acute pancreatitis as well as elevated LFTs which do appear in a cholestatic pattern however patient also has hepatic steatosis and may have underlying liver disease secondary to alcoholism. CBD is dilated at 1.2 cm need to consider possible choledocholithiasis. Labs are trending down. MRCP PE completed showing moderate intrahepatic and extrahepatic ductal dilation and CBD dilation up to 1.3 cm without any evidence of obstructed lesion or filling defect. There is mildly hydropic gallbladder. 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 No filling defect noted therefore there is no indication for any ERCP. Likely alcohol induced pancreatitis with elevated LFTs secondary to underlying alcohol liver disease. No plans on ERCP. Continue to treat symptomatically. Current Visit: Yes Status: Acute Code(s): K85.90 - ACUTE PANCREATITIS WITHOU T NECROSIS OR INFECTION, UNSP SNOMED Code(s): 06236356 (2) Abdominal pain Current Visit: Yes Status: Acute Code(s): R10.9 - UNSPECIFIED ABDOMINAL PAIN SNOMED Code(s): 91647674 (3) Alcohol abuse Current Visit: Yes Status: Acute Code(s): F10.10 - ALCOHOL ABUSE, UNCOMPLICATED SNOMED Code(s): 69299642 (4) Elevated LFTs Narrative/Plan: Trending down Current Visit: Yes Status: Acute Code(s): R79.89 - OTHER SPECIFIED ABNORMAL FINDINGS OF BLOOD CHEMISTRY SNOMED Code(s): 743744953 (5) Normochromic anemia Narrative/Plan: Likely anemia of chronic disease secondary to underlying alcohol liver cirrhosis. Current Visit: Yes Status: Acute Code(s): D64.9 - ANEMIA, UNSPECIFIED SNOMED Code(s): 39269882 (6) Thrombocytopenia Current Visit: Yes Status: Acute Code(s): D69.6 - THROMBOCYTOPENIA, UNSPECIFIED SNOMED Code(s): 505733477 Plan: 1. Continue symptomatic and supportive care 2. Diet as tolerated 3. Continue pain medication as needed 4. Antiemetics as needed 5. Protonix 40 mg daily for GI prophylaxis 6. No indication for ERCP 7. Encourage ambulation 8. Discussed with patient importance of alcohol abstinence 9. Patient is cleared from gastroenterology for discharge Thank you for this consultation, we will sign off at this time. Dr. Arabella Diallo I agree with the dictator's note, documented as a scribe by Trinity Salvador
--- NOTE | 2024-04-10 17:02 | P.DS ---
Providers Date of admission: 04/06/24 19:38 Expected date of discharge: 04/10/24 Attending physician: Ulices Kirkland MD Consults: 04/07/24 01:29 Consult Physician Routine Consulting Provider: Livia Diallo Consult Reason/Comments: Dilated CBD on DINORA Do you want consulting provider notified?: Yes [facility] Course: Discharge diagnoses; #. Acute pancreatitis, alcoholic Alcohol dependence, impending alcohol withdrawal Alcohol intoxication #Acute kidney injury #. Bicytopenia, likely due to ongoing alcohol abuse #. Transaminitis, likely due to alcohol abuse Hospital course; Patient is a 63-year-old female with a history of EtOH abuse (w/ hx of DTs and withdrawal seizures), hypothyroidism, hypertension, anxiety and depression who came in for chest pressure and abdominal pain via EMS. She reports chest pressure has been occurring for a week that has been substernal constant with intensity of 8 out of 10 that is nonradiating with associated abdominal pain that is epigastric 8 out of 10 intensity that is constant and nonradiating. She also reports nausea with vomiting that is watery and small in volume, as well as diarrhea that is liquid stools with tarry black in color, and sweats. She denies shortness of breath, fever, new onset cough, jaundice, or recent travel. Patient reports drinking 1/2 pint of varying hard liquors daily for the past several years. Notes that due to her above symptoms, she only drank 2 beers earlier today around noon. In the emergency room, chest x-ray showed no acute cardiopulmonary process. EKG showed NSR rate of [address]-T changes QTc 439. KUB x-ray showed no acute pathologic process. Gallbladder ultrasound revealed hydropic gallbladder with dilated common bile duct measuring 12 mm.Laboratory evaluation revealed WBC 5.2 hemoglobin 10.3 platelet count 124, lipase elevated at 1815 amylase elevated 148. EtOH serum level is 186. Total bilirubin 1.5 AST 257 ALT 69 ALP 263 which all elevated. Calcium 10.5 which is elevated. Bicarb of 18 which is decreased. Patient afebrile on admission with 98.4. Heart rate 92 respiratory 18 on 2 L na duane cannula with O2 of 100%. Blood pressure elevated at 167/84. During hospital stay patient was treated for acute alcoholic pancreatitis with alcohol dependence and withdrawal. Initial lipase 1815 and alcohol 186. She completed MRCP with findings of no obstruction or filling deficit of bile duct, ruling out gallstone pancreatitis. She was also treated for DEVANG, and was found to have bicytopenia and transaminitis likely from alcohol use. Patient is discharged to home in stable condition. She is started on new medication Thera multivitamin, thiamine 100 mg daily, Senokot 8.6 mg twice daily as needed for constipation, Humboldt 53 25 every 6 hours for 3 days. Klonopin was discontinued. She is to follow-up with her PCP and gastroenterology Dr. Diallo to evaluate steatohepatitis and transaminitis. She is advised to follow-up sooner if her problems worsen. Physical examination: Vital signs reviewed General: non toxic, no distress, appears older than stated age Derm: no unusual rashes/lesions, warm Head: atraumatic, normocephalic, symmetric Eyes: EOMI, no lid lag, anicteric sclera, pupils equal round reactive to light ENT: Nose and ears atraumatic Neck: No cervical lymphadenopathy, trachea midline, supple Mouth: no lip lesion, mucus membranes slightly dry Cardiovascular: S1S2 reg, no murmur Lungs: CTA bilateral, no rhonchi, no rales, no accessory muscle use Abdominal: soft, mild epigastric tenderness to palpation, no guarding Ext: muscle strength 5 out of 5 in all 4 extremities grossly, no gross muscle atrophy, no contractures, positive dorsalis pedis pulse bilateral, no edema Neuro: CN II-XI grossly intact, no gross focal neuro deficits Psych: Alert, oriented, appropriate affect and mood Dictation was produced using [employer] dictation software. please excuse any grammatical, word or spelling errors. A total of 36 minutes of time were spent preparing this complex discharge summary. Patient was discharged on 04/10/2024 at 906. I have seen and evaluated the patient today. Discussed with the resident and agree with the residents finding and plan as documented in the resident's note. Changes highlighted in blue font. Patient Condition at Discharge: Stable Plan - Discharge Summary Discharge Rx Participant: No New Discharge Prescriptions: New Multivitamins, Thera [Multivitamin (formulary)] 1 each PO DAILY #60 tab HYDROcodone/APAP 5-325MG [Humboldt 5-325] 1 tab PO Q6HR PRN 3 Days #12 tab PRN Reason: Breakthrough Pain Sennosides [Senokot] 8.6 mg PO BID PRN #60 tab PRN Reason: Constipation Thiamine [Vitamin B-1] 100 mg PO DAILY #60 tab Continue Escitalopram Oxalate [Lexapro] 20 mg PO DAILY Levothyroxine Sodium [Synthroid] 137 mcg PO DAILY Pantoprazole [Protonix] 40 mg PO DAILY Gabapentin 600 mg PO TID methocarbamoL [Robaxin] 500 mg PO TID PRN PRN Reason: Muscle Spasm lisinopriL 30 mg PO DAILY Ibuprofen [Motrin] 800 mg PO TID-W/MEALS PRN PRN Reason: Pain Sodium Chloride Tab 1 gm PO DAILY Discontinued clonazePAM [KlonoPIN] 0.5 mg PO DAILY PRN PRN Reason: Anxiety Discharge Medication List Escitalopram Oxalate [Lexapro] 20 mg PO DAILY 07/04/22 [History] methocarbamoL [Robaxin] 500 mg PO TID PRN 10/16/22 [History] Gabapentin 600 mg PO TID 04/06/24 [History] Ibuprofen [Motrin] 800 mg PO TID-W/MEALS PRN 04/06/24 [History] Levothyroxine Sodium [Synthroid] 137 mcg PO DAILY 04/06/24 [History] Pantoprazole [Protonix] 40 mg PO DAILY 04/06/24 [History] Sodium Chloride Tab 1 gm PO DAILY 04/06/24 [History] lisinopriL 30 mg PO DAILY 04/06/24 [History] HYDROcodone/APAP 5-325MG [Humboldt 5-325] 1 tab PO Q6HR PRN 3 Days #12 tab 04/10/24 [Rx] Multivitamins, Thera [Multivitamin (formulary)] 1 each PO DAILY #60 tab 04/10/24 [Rx] Sennosides [Senokot] 8.6 mg PO BID PRN #60 tab 04/10/24 [Rx] Thiamine [Vitamin B-1] 100 mg PO DAILY #60 tab 04/10/24 [Rx] Follow up Appointment(s)/Referral(s): Jann Dc DO [Primary Care Provider] - 1-2 days Livia Diallo MD [STAFF PHYSICIAN] - 04/14/24 3:00 pm [facility], [NON-STAFF] - As Needed Patient Instructions/Handouts: Pancreatitis (DC), Abuse of Alcohol (DC), Alcohol Withdrawal (DC) Activity/Diet/Wound Care/Special Instructions: Please follow up with your PCP and your Customer Agent Dr Diallo. Take senna as prescribed for constipation, and Humboldt for pain. Keep follow up appts as advised, follow up sooner for worsening symptoms, problems, or concerns. Discharge/Stand Alone Forms: AA Meetings [facility] & 24 - [facility], AA Meetings [facility], Who Do I Call?, Community Resources, Outpatient Counseling, In Substance Abuse Facilities Discharge Disposition: HOME WITH HOME HEALTH SERVICES
== END 2024-04-10 16:01 | disposition home health service (06) | DRG 439 ==
LOC: EC 17:13 → 6NMEDSUR 19:37 → OBSVTOIN 19:38 → 6NMEDSUR 19:46
PROVIDERS: ADMIT Internal Medicine; ATTEND Internal Medicine
DX: K85.20 Alcohol induced acute pancreatitis without necrosis or infection (principal); F10.139 Alcohol abuse with withdrawal, unspecified; N17.9 Acute kidney failure, unspecified; Y90.6 Blood alcohol level of 120-199 mg/100 ml; D63.8 Anemia in other chronic diseases classified elsewhere; K70.30 Alcoholic cirrhosis of liver without ascites; D69.6 Thrombocytopenia, unspecified; E03.9 Hypothyroidism, unspecified; K83.8 Other specified diseases of biliary tract; F17.200 Nicotine dependence, unspecified, uncomplicated; I10 Essential (primary) hypertension; F41.9 Anxiety disorder, unspecified; F31.9 Bipolar disorder, unspecified; F10.129 Alcohol abuse with intoxication, unspecified; Z79.1 Long term (current) use of non-steroidal anti-inflammatories (NSAID); Z79.890 Hormone replacement therapy; Z79.899 Other long term (current) drug therapy
CPT/HCPCS: 36415; 71046; 74018; 74181; 76705; 76770; 80053; 80320; 82150; 83615; 83690; 83735; 84484; 85025; 85027; 85610; 85730; 93005; 96361; 96372; 96374; 96375; 96376; 99285

== ENCOUNTER 2024-04-11 03:43 | Observation (INO) | payer MEDICARE, OTHER ==
--- NOTE | 2024-04-11 03:47 | ED ---
Weakness HPI - General Stated complaint: Weakness Time Seen by Provider: 04/11/24 03:46 Source: RN notes reviewed, old records reviewed Mode of arrival: EMS Limitations: no limitations - History of Present Illness Initial comments: This is a 63-year-old female presenting today for evaluation of weakness patient is of recent hospital discharge yesterday when she had taken home she was put in her chair by EMS and was unable to get up since being put in her house. Patient states she cannot live at home MD Complaint: generalized weakness -: days(s) Location: generalized Severity: moderate Severity scale (1-10): 7 Consistency: constant Improves with: none Worsens with: none Context: recent illness, history of similar Associated Symptoms: denies other symptoms - Related Data Home Medications Medication Instructions Recorded Confirmed Escitalopram Oxalate [Lexapro] 20 mg PO DAILY 07/04/22 04/11/24 methocarbamoL [Robaxin] 500 mg PO TID PRN 10/16/22 04/11/24 Gabapentin 600 mg PO TID 04/06/24 04/11/24 Ibuprofen [Motrin] 800 mg PO TID-W/MEALS PRN 04/06/24 04/11/24 Levothyroxine Sodium [Synthroid] 137 mcg PO DAILY 04/06/24 04/11/24 Pantoprazole [Protonix] 40 mg PO DAILY 04/06/24 04/11/24 Sodium Chloride Tab 1 gm PO DAILY 04/06/24 04/11/24 lisinopriL 30 mg PO DAILY 04/06/24 04/11/24 Multivitamins, Thera [Multivitamin 1 tab PO DAILY 04/11/24 04/11/24 (formulary)] Previous Rx's Medication Instructions Recorded HYDROcodone/APAP 5-325MG [Jadwin 1 tab PO Q6HR PRN 3 Days #12 tab 04/10/24 5-325] Sennosides [Senokot] 8.6 mg PO BID PRN #60 tab 04/10/24 Thiamine [Vitamin B-1] 100 mg PO DAILY #60 tab 04/10/24 Allergies Allergy/AdvReac Type Severity Reaction Status Date / Time No Known Allergies Allergy Verified 04/11/24 14:16 Review of Systems ROS Statement: Those systems with pertinent positive or pertinent negative responses have been documented in the HPI. ROS Other: All systems not noted in ROS Statement are negative. Past Medical History Past Medical History: Hypertension, Thyroid Disorder Additional Past Medical History / Comment(s): anxiety History of Any Multi-Drug Resistant Organisms: None Reported Past Surgical History: Unable to Obtain, Back Surgery, Section, Orthopedic Surgery Past Psychological History: ADD/ADHD, Anxiety, Bipolar, Depression Smoking Status: Current every day smoker Past Alcohol Use History: Rare Past Drug Use History: Marijuana - Past Family History Father Family Medical History: Coronary Artery Disease (CAD) General Exam General appearance: alert, in no apparent distress Head exam: Present: atraumatic, normocephalic, normal inspection Eye exam: Present: normal appearance, PERRL, EOMI. Absent: scleral icterus, conjunctival injection, periorbital swelling ENT exam: Present: normal exam, mucous membranes moist Neck exam: Present: normal inspection. Absent: tenderness, meningismus, lymphadenopathy Respiratory exam: Present: normal lung sounds bilaterally. Absent: respiratory distress, wheezes, rales, rhonchi, stridor Cardiovascular Exam: Present: regular rate, normal rhythm, normal heart sounds. Absent: systolic murmur, diastolic murmur, rubs, gallop, clicks GI/Abdominal exam: Present: soft, normal bowel sounds. Absent: distended, tenderness, guarding, rebound, rigid Extremities exam: Present: normal inspection, full ROM, normal capillary refill. Absent: tenderness, pedal edema, joint swelling, calf tenderness Back exam: Present: normal inspection Neurological exam: Present: alert, oriented X3, CN II-XII intact Psychiatric exam: Present: normal affect, normal mood Skin exam: Present: warm, dry, intact, normal color. Absent: rash Course Vital Signs 04/11/24 04/11/24 03:46 05:33 Temperature 98.4 F Pulse Rate 77 75 Respiratory 18 18 Rate Blood Pressure 157/82 130/72 O2 Sat by Pulse 100 100 Oximetry - Reevaluation(s) Reevaluation #1: 04/11/24 03:47 Medical records reviewed Reevaluation #2: 04/11/24 03:47 Symptoms unchanged Reevaluation #3: 04/11/24 05:01 Patient informed of results and questions answered Reevaluation #4: Was pt. sent in by a medical professional or institution (, PA, DRY CLEANING COUNTER CLERK, urgent care, hospital, or correction...) When possible be specific @ -no Did you speak to anyone other than the patient for history (EMS, parent, family, police, friend...)? What history was obtained from this source @ -no Did you review nursing and triage notes (agree or disagree)? Why? @ -agree Are old charts reviewed (outside hosp., previous admission, EMS record, old EKG, old radiological studies, urgent care reports/EKG's, correction records)? Report findings @ -yes Differential Diagnosis (chest pain, altered mental status, abdominal pain women, abdominal pain men, vaginal bleeding, weakness, fever, dyspnea, syncope, headache, dizziness, GI bleed, back pain, seizure, CVA, palpatations, mental health, musculoskeletal)? @ -prior EKG interpreted by me (3pts min.). @ -yes X-rays interpreted by me (1pt min.). @ -no CT interpreted by me (1pt min.). @ -no U/S interpreted by me (1pt. min.). @ -no What testing was considered but not performed or refused? (CT, X-rays, U/S, labs)? Why? @ -none What meds were considered but not given or refused? Why? @ -none Did you discuss the management of the patient with other professionals (professionals i.e. , PA, DRY CLEANING COUNTER CLERK, lab, RT, psych nurse, group social worker, propagation worker, teacher, air defense artillery officer, field case manager)? Give summary @ -no Was smoking cessation discussed for >3mins.? @ -no Was critical care preformed (if so, how long)? @ -no Were there social determinants of health that impacted care today? How? (Homelessness, low income, unemployed, alcoholism, drug addiction, transportation, low edu. Level, literacy, decrease access to med. care, custodial, rehab)? @ -none Was there de-escalation of care discussed even if they declined (Discuss DNR or withdrawal of care, Hospice)? DNR status @ -no What co-morbidities impacted this encounter? (DM, HTN, Smoking, COPD, CAD, Ca ncer, CVA, ARF, Chemo, Hep., AIDS, mental health diagnosis, sleep apnea, morbid obesity)? @ -none Was patient admitted / discharged? Hospital course, mention meds given and route, prescriptions, significant lab abnormalities, going to OR and other pertinent info. @ - 63 female with recent hospital admission and likely combination of weakness and hospital-acquired debility. Patient will need PT OT, rehab and possible inpatient treatment Admitted Undiagnosed new problem with uncertain prognosis? @ -no Drug Therapy requiring intensive monitoring for toxicity (Heparin, Nitro, Insulin, Cardizem)? @ -no Were any procedures done? @ -no Diagnosis/symptom? @ - debility and weakness Acute, or Chronic, or Acute on Chronic? @ -Acute Uncomplicated (without systemic symptoms) or Complicated (systemic symptoms)? @ -Complicated Side effects of treatment? @ -no Exacerbation, Progression, or Severe Exacerbation? @ -exacerbation Poses a threat to life or bodily function? How? (Chest pain, [place], [place], pneumonia, PE, COPD, DKA, ARF, appy, cholecystitis, CVA, Diverticulitis, Homicidal, Suicidal, threat to staff... and all critical care pts) @ -yes debility Reevaluation #5: Differential Weakness: Hypoglycemia, shock, sepsis, hyponatremia, anemia, infection, [place], ETOH, adverse medicine reaction, overdose, stroke, this is not meant to be an all-inclusive list. - Consultations Consultation #1: With sound who agrees to admit this patient EKG Findings - EKG Comments: EKG Findings:: EKG is sinus 75 VT 155 QRS 94 QTc 417 - EKG Results: EKG: interpreted by [facility] Medical Decision Making - Medical Decision Making 63 female with recent hospital admission and likely combination of weakness and hospital-acquired debility. Patient will need PT OT, rehab and possible inpa tient treatment - Lab Data Result diagrams: 04/12/24 06:39 04/12/24 06:39 Lab Results 04/11/24 04/11/24 04/11/24 Range/Units 04:20 04:20 04:20 WBC 5.4 (3.8-10.6) k/uL RBC 3.04 L (3.80-5.40) m/uL Hgb 9.5 L (11.4-16.0) gm/dL Hct 29.3 L (34.0-46.0) % MCV 96.4 (80.0-100.0) fL MCH 31.1 (25.0-35.0) pg MCHC 32.3 (31.0-37.0) g/dL RDW 14.9 (11.5-15.5) % Plt Count 189 D (150-450) k/uL MPV 8.6 Neutrophils % 74 % Lymphocytes % 13 % Monocytes % 8 % Eosinophils % 3 % Basophils % 0 % Neutrophils # 4.0 (1.3-7.7) k/uL Lymphocytes # 0.7 L (1.0-4.8) k/uL Monocytes # 0.4 (0-1.0) k/uL Eosinophils # 0.2 (0-0.7) k/uL Basophils # 0.0 (0-0.2) k/uL PT 12.0 (10.0-12.5) sec INR 1.1 (<1.2) APTT 26.4 (22.0-30.0) sec Plasma Lactic Acid Johann (0.7-2.0) mmol/L Troponin I (0.000-0.034) ng/mL NT-Pro-B Natriuret Pep 90 pg/mL TSH 10.500 H (0.465-4.680) mIU/L 04/11/24 04/11/24 Range/Units 04:20 04:20 WBC (3.8-10.6) k/uL RBC (3.80-5.40) m/uL Hgb (11.4-16.0) gm/dL Hct (34.0-46.0) % MCV (80.0-100.0) fL MCH (25.0-35.0) pg MCHC (31.0-37.0) g/dL RDW (11.5-15.5) % Plt Count (150-450) k/uL MPV Neutrophils % % Lymphocytes % % Monocytes % % Eosinophils % % Basophils % % Neutrophils # (1.3-7.7) k/uL Lymphocytes # (1.0-4.8) k/uL Monocytes # (0-1.0) k/uL Eosinophils # (0-0.7) k/uL Basophils # (0-0.2) k/uL PT (10.0-12.5) sec INR (<1.2) APTT (22.0-30.0) sec Plasma Lactic Acid Johann 1.3 (0.7-2.0) mmol/L Troponin I <0.012 (0.000-0.034) ng/mL NT-Pro-B Natriuret Pep pg/mL TSH (0.465-4.680) mIU/L Disposition Clinical Impression: Dehydration, Weakness, Debility, FTT (failure to thrive) in adult Disposition: ADMITTED IP TO THIS HOSP Condition: Fair Is patient prescribed a controlled substance at d/c from ED?: No Time of Disposition: 04:45
[2024-04-11] MEDS: SODIUM CHLORIDE 0.9% 1,000 ML IV STA (04:27)
[2024-04-11] MEDS ORDERED: HYDROmorphone 1 MG/ML 1 ML SYRINGE IVP PRN (04:39)
[2024-04-11 04:45] LABS: Basophils % (A) 0 %; Eosinophils # (A) 0.2 k/uL (0-0.7); Eosinophils % (A) 3 %; HCT 29.3 % (34.0-46.0); HGB 9.5 gm/dL (11.4-16.0); Lymphocytes # (A) 0.7 k/uL (1.0-4.8); Lymphocytes % (A) 13 %; MCH 31.1 pg (25.0-35.0); MCHC 32.3 g/dL (31.0-37.0); MCV 96.4 fL (80.0-100.0); Mean Platelet Volume 8.6; Monocytes # (A) 0.4 k/uL (0-1.0); Monocytes % (A) 8 %; Neutrophils % (A) 74 %; RBC 3.04 m/uL (3.80-5.40); RDW 14.9 % (11.5-15.5); WBC 5.4 k/uL (3.8-10.6)
[2024-04-11 04:52] LABS: Platelet Count 189 k/uL (150-450)
[2024-04-11 04:53] LABS: INR 1.1 (<1.2); Partial Thromboplastin Time 26.4 sec (22.0-30.0)
[2024-04-11] MEDS: HYDROmorphone 1 MG/ML 1 ML SYRINGE IVP STA (04:53)
[2024-04-11] MEDS ORDERED: NALOXONE 0.4 MG/ML 1 ML VIAL IV PRN (04:59)
[2024-04-11] MEDS: SODIUM CHLORIDE 0.9% 1,000 ML IV SCH ×2 (05:31→22:26)
--- NOTE | 2024-04-11 06:01 | P.HPIM ---
History of Present Illness H&P Date: 04/11/24 Patient is a 63-year-old female with a PMH of EtOH abuse (w/ hx of DTs and withdrawal seizures), hypertension, hypothyroidism, anxiety and depression who was recently hospitalized from 04/06 to 04/10 for acute alcoholic pancreatitis and acute kidney injury. The patient also underwent an MRCP ruling out gallstone pancreatitis. She was discharged home with outpatient follow-up with gastroenterology and her PCP. The patient reports however that soon after returning home yesterday, that she felt really weak and was unable to ambulate or perform her ADLs. She also reports some bruising of her left arm at the site of a prior IV site. She denied experiencing chest discomfort, shortness of breath, fever, chills, cough, nausea, vomiting, abdominal pain, diarrhea. EKG in the emergency room revealed sinus rhythm with T wave flattening in leads V2 and V3 as well as Q waves in leads III at 75 bpm. Chest x-ray is reviewed with the ER physician revealed no acute abnormalities. Laboratory evaluation was remarkable for hemoglobin 9.5 (similar to baseline) with lactic acid 1.3 and troponin less than 0.012. ED documentation reviewed and case discussed with ED provider. Review of systems: Pertinent positives and negatives as discussed in HPI, a complete review of systems was performed and all other systems are negative. Physical examination: Vital signs reviewed General: Chronically ill-appearing female, no distress, appears older than stated age, morbidly obese Derm: Left arm large area of circumferential ecchymosis noted without erythema or skin breaks, warm Head: atraumatic, normocephalic, symmetric Eyes: EOMI, no lid lag, anicteric sclera, pupils equal round reactive to light ENT: Nose and ears atraumatic Neck: No cervical lymphadenopathy, trachea midline, supple Mouth: no lip lesion, mucus membranes moist Cardiovascular: S1S2 reg, no murmur, positive dorsalis pedis pulse bilateral, no edema Lungs: CTA bilateral, no rhonchi, no rales, no accessory muscle use Abdominal: soft, nontender to palpation, no guarding Ext: muscle strength 3 out of 5 of bilateral lower extremities with strength 4 out of 5 of bilateral upper extremities in all 4 extremities grossly, no gross muscle atrophy, no contractures, Neuro: CN II-XI grossly intact, no gross focal neuro deficits Psych: Alert, oriented, appropriate affect Assessment: Debility Chronic conditions: Hypertension, hypothyroidism, anxiety, depression, alcohol abuse Imaging: EKG in the emergency room revealed sinus rhythm with T wave flattening in leads V2 and V3 as well as Q waves in leads III at 75 bpm. Chest x-ray is reviewed with the ER physician revealed no acute abnormalities. Data Review: Laboratory evaluation was remarkable for hemoglobin 9.5 (similar to baseline) with lactic acid 1.3 and troponin less than 0.012. Plan: PT consult C/w IVFs w/ NS @ 75 ml/hr Fall precautions Resume home medications: Synthroid, lisinopril, sodium chloride tabs, Protonix, [place], and thiamine DVT prophylaxis: Heparin subcu The patient is admitted with an anticipated less than 2 midnight stay for evaluation of debility CODE STATUS: Full Code Discussed with: Patient Anticipated discharge place: [facility] Past Medical History Past Medical History: Hypertension, Thyroid Disorder Additional Past Medical History / Comment(s): anxiety History of Any Multi-Drug Resistant Organisms: None Reported Past Surgical History: Unable to Obtain, Back Surgery, Section, Orthopedic Surgery Past Psychological History: ADD/ADHD, Anxiety, Bipolar, Depression Smoking Status: Current every day smoker Past Alcohol Use History: Rare Past Drug Use History: Marijuana - Past Family History Father Family Medical History: Coronary Artery Disease (CAD) Medications and Allergies Home Medications Medication Instructions Recorded Confirmed Type Escitalopram Oxalate [Lexapro] 20 mg PO DAILY 07/04/22 04/06/24 History methocarbamoL [Robaxin] 500 mg PO TID PRN 10/16/22 04/06/24 History Gabapentin 600 mg PO TID 04/06/24 04/06/24 History Ibuprofen [Motrin] 800 mg PO TID-W/MEALS PRN 04/06/24 04/06/24 History Levothyroxine Sodium [Synthroid] 137 mcg PO DAILY 04/06/24 04/06/24 History Pantoprazole [Protonix] 40 mg PO DAILY 04/06/24 04/06/24 History Sodium Chloride Tab 1 gm PO DAILY 04/06/24 04/06/24 History lisinopriL 30 mg PO DAILY 04/06/24 04/06/24 History HYDROcodone/APAP 5-325MG [[place] 1 tab PO Q6HR PRN 3 Days #12 tab 04/10/24 Rx 5-325] Multivitamins, Thera [Multivitamin 1 each PO DAILY #60 tab 04/10/24 Rx (formulary)] Sennosides [Senokot] 8.6 mg PO BID PRN #60 tab 04/10/24 Rx Thiamine [Vitamin B-1] 100 mg PO DAILY #60 tab 04/10/24 Rx Allergies Allergy/AdvReac Type Severity Reaction Status Date / Time No Known Allergies Allergy Verified 04/11/24 03:49 Physical Exam Vitals: Vital Signs Temp Pulse Resp BP Pulse Ox 04/11/24 05:33 75 18 130/72 100 04/11/24 03:46 98.4 F 77 18 157/82 100 Intake and Output 04/10/24 04/10/24 04/11/24 14:59 22:59 06:59 Other: Weight 95.254 kg Results CBC & Chem 7: 04/11/24 04:20 Labs: Abnormal Lab Results - Last 24 Hours (Table) 04/11/24 Range/Units 04:20 RBC 3.04 L (3.80-5.40) m/uL Hgb 9.5 L (11.4-16.0) gm/dL Hct 29.3 L (34.0-46.0) % Lymphocytes # 0.7 L (1.0-4.8) k/uL
--- NOTE | 2024-04-11 06:02 | XR ---
EXAM: XR Chest, 1 View CLINICAL HISTORY: ITS.REASON XR Reason: weak TECHNIQUE: Frontal view of the chest. COMPARISON: X-ray dated 04/06/2024 FINDINGS: Lungs: Unremarkable. No consolidation. Pleural space: Unremarkable. No pneumothorax. Heart: Unremarkable. No cardiomegaly. Mediastinum: Unremarkable. Normal mediastinal contour. Bones/joints: Degenerative changes are seen in the spine and shoulders. No acute fracture. IMPRESSION: No acute findings in the chest.
[2024-04-11 06:05] LABS: Appearance,Urine Clear (Clear); Bilirubin,Urine Negative (Negative); Blood,Urine Negative (Negative); Color,Urine Yellow; Glucose,Urine (UA) Negative (Negative); Ketones,Urine Negative (Negative); Leukocyte Esterase,Urine Negative (Negative); Nitrite,Urine Negative (Negative); Protein,Urine Negative (Negative); Specific Gravity,Urine 1.012 (1.001-1.035); Urobilinogen,Urine <2.0 mg/dL (<2.0)
[2024-04-11 07:34] LABS: ALT 39 U/L (4-34); AST 138 U/L (14-36); African American GFR (CKD) >90 (>60 ml/min/1.73 sqM); Albumin 2.9 g/dL (3.5-5.0); Albumin/Globulin Ratio 0.8; Alkaline Phosphatase 207 U/L (38-126); Anion Gap 7 mmol/L; Blood Urea Nitrogen 18 mg/dL (7-17); Calcium 10.2 mg/dL (8.4-10.2); Carbon Dioxide 23 mmol/L (22-30); Chloride 105 mmol/L (98-107); Globulin 3.5 g/dL; Glucose 97 mg/dL (74-99); Magnesium 1.2 mg/dL (1.6-2.3); Non-African American GFR(CKD) >90 (>60 ml/min/1.73 sqM); Potassium 3.6 mmol/L (3.5-5.1); Sodium 135 mmol/L (137-145); Total Protein 6.4 g/dL (6.3-8.2)
[2024-04-11] MEDS: HEPARIN SODIUM,PORCINE 5,000 UNIT/ML 1 ML VIAL SQ SCH (08:04)
[2024-04-11] MEDS: HYDROcodone/APAP 5-325MG 1 EACH TAB PO PRN (08:04)
[2024-04-11] MEDS: PANTOPRAZOLE 40 MG TABLET PO SCH (08:04)
[2024-04-11] MEDS: THIAMINE 100 MG TAB PO SCH (08:04)
[2024-04-11] MEDS: MULTIVITAMINS, THERA 1 EACH TAB PO SCH (08:04)
[2024-04-11] MEDS: lisinopriL 10 MG TAB PO SCH (08:04)
[2024-04-11] MEDS ORDERED: PANTOPRAZOLE 40 MG/10 ML VIAL IV SCH (09:00)
[2024-04-11] MEDS: SODIUM CHLORIDE TAB 1 GM TAB PO SCH (09:35)
[2024-04-11] MEDS: LEVOTHYROXINE 137 MCG TAB PO SCH (09:35)
[2024-04-11] MEDS: ESCITALOPRAM 20 MG TAB PO SCH (09:35)
[2024-04-11] MEDS: MAGNESIUM SULFATE-D5W PMX 1 GM in DEXTROSE/WATER 1 100ML.BAG IVPB SCH (09:45)
--- NOTE | 2024-04-11 12:25 | XR ---
Right knee HISTORY: Swelling post fall. COMPARISON: 07/04/2022. TECHNIQUE: 4 views of the left knee were obtained. FINDINGS: There is a total left knee prosthesis. There is been open reduction and internal fixation of a distal left femur diaphyseal fracture. Minima lly displaced fracture line is still present along the lateral aspect of the distal femur. The fractu re along the medial aspect is nearly completely healed. On the lateral projection there is significan t displacement of the fracture but there is a degree of callus formation indicating partial fracture healing. There is no joint effusion. There is no ostiolysis associated with the prosthesis. IMPRESSION: 1. Partially healed displaced fracture of the distal left femoral diaphysis. 2. No evidence of loosening of the left knee prosthesis. 3. No joint effusion. [facility], , 04/11/2024 12:23 PM
[2024-04-11] MEDS: methocarbamoL 500 MG TAB PO PRN (15:22)
[2024-04-11] MEDS: KETOROLAC 15 MG/ML 1 ML VIAL IVP SCH (17:38)
[2024-04-12 05:10] LABS: Appearance,Urine Clear (Clear); Bacteria,Urine Rare /hpf; Bilirubin,Urine Negative (Negative); Blood,Urine Small (Negative); Color,Urine Yellow; Glucose,Urine (UA) Negative (Negative); Hyaline Casts,Urine 8 /lpf (0-2); Ketones,Urine Negative (Negative); Leukocyte Esterase,Urine Negative (Negative); Mucus,Urine Rare /hpf; Nitrite,Urine Negative (Negative); PH, Urine 5.5 (5.0-8.0); Protein,Urine Trace (Negative); RBC,Urine 6 /hpf (0-5); Specific Gravity,Urine 1.023 (1.001-1.035); Squamous Epithelial Cell,Urine 3 /hpf (0-4); WBC,Urine 1 /hpf (0-5)
[2024-04-12] MEDS: ONDANSETRON 4 MG/2 ML VIAL IVP PRN (08:43)
[2024-04-12 09:58] LABS: Basophils # (A) 0.03 X 10*3/uL (0.00-0.10); Basophils % (A) 0.7 %; Eosinophils # (A) 0.16 X 10*3/uL (0.04-0.35); Eosinophils % (A) 3.6 %; HCT 25.8 % (37.2-46.3); HGB 8.3 g/dL (12.0-15.0); Lymphocytes # (A) 0.79 X 10*3/uL (0.90-5.00); Lymphocytes % (A) 17.9 %; MCH 30.3 pg (27.0-32.0); MCHC 32.2 g/dL (32.0-37.0); MCV 94.2 FL (80.0-97.0); Mean Platelet Volume 9.9 FL (9.5-12.2); Monocytes # (A) 1.15 X 10*3/uL (0.20-1.00); NRBC Per 100 WBC 0 X 10*3/uL (0.00-0.01); Neutrophils # (A) 2.26 X 10*3/uL (1.80-7.70); Neutrophils % (A) 51.1 %; Platelet Count 248 X 10*3/uL (140-440); RBC 2.74 X 10*6/uL (4.10-5.20); RDW 15.6 % (11.5-14.5); WBC 4.42 X 10*3/uL (4.50-10.00)
[2024-04-12 10:11] LABS: ALT 34 U/L (8-44); AST 66 U/L (13-35); Alkaline Phosphatase 220 U/L (41-126); BUN/Creat Ratio 15.88 Ratio (12.00-20.00); Blood Urea Nitrogen 12.7 mg/dL (9.0-27.0); Calcium 9.4 mg/dL (8.7-10.3); Carbon Dioxide 21.3 mmol/L (21.6-31.8); Chloride 104 mmol/L (96-109); Glucose 107 mg/dL (70-110); Phosphorus 1.9 mg/dL (2.4-5.1); Potassium 3.5 mmol/L (3.5-5.5); Sodium 136 mmol/L (135-145); Total Bilirubin 0.5 mg/dL (0.3-1.2)
[2024-04-12 10:38] LABS: Lipase 135 U/L (14-63)
--- NOTE | 2024-04-12 13:30 | P.PN ---
Subjective Progress Note Date: 04/12/24 Hospital Course: 63-year-old female with a PMH of EtOH abuse (w/ hx of DTs and withdrawal seizu res), hypertension, hypothyroidism, anxiety and depression who was recently hospitalized from 04/06 to 04/10 for acute alcoholic pancreatitis and acute kidney injury. EKG in the emergency room revealed sinus rhythm with T wave flattening in leads V2 and V3 as well as Q waves in leads III at 75 bpm. Chest x-ray showed no acute abnormalities. Laboratory evaluation was remarkable for hemoglobin 9.5 (similar to baseline) with lactic acid 1.3 and troponin less than 0.012. Patient was admitted for debility, pending subacute rehab. Subjective: Patient seen and examined at bedside. No acute events overnight. Pertinent positives and negatives as discussed above, a complete review of systems was performed and all other systems are negative. Vitals Signs Reviewed. General: Chronically ill-appearing female, no distress, appears older than stated age, morbidly obese Derm: Left arm large area of circumferential ecchymosis noted without erythema or skin breaks, warm Head: atraumatic, normocephalic, symmetric Eyes: EOMI, no lid lag, anicteric sclera, pupils equal round reactive to light ENT: Nose and ears atraumatic Neck: No cervical lymphadenopathy, trachea midline, supple Mouth: no lip lesion, mucus membranes moist Cardiovascular: S1S2 reg, no murmur, positive dorsalis pedis pulse bilateral, no edema Lungs: CTA bilateral, no rhonchi, no rales, no accessory muscle use Abdominal: soft, nontender to palpation, no guarding Ext: muscle strength 3 out of 5 of bilateral lower extremities with strength 4 out of 5 of bilateral upper extremities in all 4 extremities grossly, no gross muscle atrophy, no contractures, Neuro: CN II-XI grossly intact, no gross focal neuro deficits Psych: Alert, oriented, appropriate affect Data Reviewed Today: Pertinent Labs: WBC 4.42, hemoglobin 8.3, sodium 136, creatinine 0.8, magnesium 2, lipase 135 Imaging: Knee x-rays from yesterday showed partially healed displaced fracture of distal left femoral diaphysis Assessment and Plan: Active: Debility Partially healed displaced fracture of distal left femoral diaphysis -Physical therapy following -Patient on [place] 5 every 6 hours as needed, monitor for sedation -Also started on IV Toradol 15 every 6 hours as needed -DC IV fluids -Pending subacute rehab placement -Patient will likely need outpatient follow-up with orthopedic surgery for partially healed displaced fracture Chronic: Hypertension Dyslipidemia Anxiety Depression Alcohol dependence DVT ppx: Subcu heparin Code status: Full code Anticipated discharge place: Pending clinical course Anticipated discharge time: Pending clinical course Objective - Vital Signs Vital signs: Vital Signs Temp 97.7 F 04/12/24 07:48 Pulse 72 04/12/24 07:48 Resp 17 04/12/24 07:48 BP 147/77 04/12/24 07:48 Pulse Ox 99 04/12/24 07:48 FiO2 Intake & Output 04/11/24 04/12/24 04/12/24 18:59 06:59 18:59 Intake Total 580 Balance 580 Intake: Oral 580 Other: Voiding Method Bedside Commode Bedside Commode Bedside Commode # Voids 5 2 1 # Bowel Movements 2 1 1 - Labs CBC & Chem 7: 04/12/24 06:39 04/12/24 06:39 Labs: Abnormal Lab Results - Last 24 Hours (Table) 04/12/24 04/12/24 04/12/24 Range/Units 04:30 06:39 06:39 WBC 4.42 L (4.50-10.00) X 10*3/uL RBC 2.74 L (4.10-5.20) X 10*6/uL Hgb 8.3 L (12.0-15.0) g/dL Hct 25.8 L (37.2-46.3) % RDW 15.6 H (11.5-14.5) % Lymphocytes # 0.79 L (0.90-5.00) X 10*3/uL Monocytes # 1.15 H (0.20-1.00) X 10*3/uL Carbon Dioxide 21.3 L (21.6-31.8) mmol/L Phosphorus 1.9 L (2.4-5.1) mg/dL AST 66 H (13-35) U/L Alkaline Phosphatase 220 H (41-126) U/L Total Protein 6.0 L (6.2-8.2) g/dL Albumin 3.0 L (3.8-4.9) g/dL Albumin/Globulin Ratio 1.00 L (1.60-3.17) Ratio Lipase 135 H (14-63) U/L Urine Protein Trace H (Negative) Urine Blood Small H (Negative) Urine RBC 6 H (0-5) /hpf Urine Bacteria Rare H (None) /hpf Hyaline Casts 8 H (0-2) /lpf Urine Mucus Rare H (None) /hpf
[2024-04-12] MEDS: KETOROLAC 15 MG/ML 1 ML VIAL IVP PRN (19:04)
--- NOTE | 2024-04-13 11:37 | P.PN ---
Subjective Progress Note Date: 04/13/24 Hospital Course: 63-year-old female with a PMH of EtOH abuse (w/ hx of DTs and withdrawal seizu res), hypertension, hypothyroidism, anxiety and depression who was recently hospitalized from 04/06 to 04/10 for acute alcoholic pancreatitis and acute kidney injury. EKG in the emergency room revealed sinus rhythm with T wave flattening in leads V2 and V3 as well as Q waves in leads III at 75 bpm. Chest x-ray showed no acute abnormalities. Laboratory evaluation was remarkable for hemoglobin 9.5 (similar to baseline) with lactic acid 1.3 and troponin less than 0.012. Patient was admitted for debility, pending subacute rehab. Subjective: Patient seen and examined at bedside. No acute events overnight. Pertinent positives and negatives as discussed above, a complete review of systems was performed and all other systems are negative. Vitals Signs Reviewed. General: Chronically ill-appearing female, no distress, appears older than stated age, morbidly obese Derm: Left arm large area of circumferential ecchymosis noted without erythema or skin breaks, warm Head: atraumatic, normocephalic, symmetric Eyes: EOMI, no lid lag, anicteric sclera, pupils equal round reactive to light ENT: Nose and ears atraumatic Neck: No cervical lymphadenopathy, trachea midline, supple Mouth: no lip lesion, mucus membranes moist Cardiovascular: S1S2 reg, no murmur, positive dorsalis pedis pulse bilateral, no edema Lungs: CTA bilateral, no rhonchi, no rales, no accessory muscle use Abdominal: soft, nontender to palpation, no guarding Ext: muscle strength 3 out of 5 of bilateral lower extremities with strength 4 out of 5 of bilateral upper extremities in all 4 extremities grossly, no gross muscle atrophy, no contractures, Neuro: CN II-XI grossly intact, no gross focal neuro deficits Psych: Alert, oriented, appropriate affect Data Reviewed Today: Pertinent Labs: No new labs Imaging: No new imaging Assessment and Plan: Active: Debility Partially healed displaced fracture of distal left femoral diaphysis -Physical therapy following -Patient on [place] 5 every 6 hours as needed, monitor for sedation -Continue IV Toradol 15 mg every 6 hours as needed -Pending subacute rehab placement -Patient will likely need outpatient follow-up with orthopedic surgery for partially healed displaced fracture Chronic: Hypertension Dyslipidemia Anxiety Depression Alcohol dependence DVT ppx: Subcu heparin Code status: Full code Anticipated discharge place: Pending clinical course Anticipated discharge time: Pending clinical course Objective - Vital Signs Vital signs: Vital Signs Temp 97.7 F 04/13/24 07:28 Pulse 80 04/13/24 07:28 Resp 18 04/13/24 07:28 BP 121/69 04/13/24 07:28 Pulse Ox 97 04/13/24 07:28 FiO2 Intake & Output 04/12/24 04/13/24 04/13/24 18:59 06:59 18:59 Intake Total 1080 Output Total 200 Balance 1080 -200 Intake: Oral 1080 Output: Urine 200 Other: Voiding Method Bedside Commode Bedside Commode External Catheter # Voids 3 2 # Bowel Movements 1 - Labs CBC & Chem 7: 04/12/24 06:39 04/12/24 06:39
[2024-04-13 12:57] VITALS: BP 131/66; PULSE 72; RESP 17; TEMP 97.6
--- NOTE | 2024-04-13 15:18 | P.DS ---
Providers Date of admission: 04/11/24 04:59 Expected date of discharge: 04/13/24 Attending physician: Ulices Kirkland MD Primary care physician: Jann Dc [facility] Course: Discharge Diagnosis: Debility Partially healed displaced fracture of distal left femoral diaphysis Hypertension Dyslipidemia Anxiety Depression Alcohol dependence Hospital Course: 63-year-old female with a PMH of EtOH abuse (w/ hx of DTs and withdrawal s eizures), hypertension, hypothyroidism, anxiety and depression who was recently hospitalized from 04/06 to 04/10 for acute alcoholic pancreatitis and acute kidney injury. EKG in the emergency room revealed sinus rhythm with T wave flattening in leads V2 and V3 as well as Q waves in leads III at 75 bpm. Chest x-ray showed no acute abnormalities. Laboratory evaluation was remarkable for hemoglobin 9.5 (similar to baseline) with lactic acid 1.3 and troponin less than 0.012. Patient was admitted for debility. Patient was complaining of left knee pain has been ongoing for few weeks. X-ray showed partially healed displaced fracture of distal left femoral diaphysis. Patient will need subacute rehab. Follow-up outpatient with PCP, and orthopedic surgery. Patient seen and examined at bedside. Vital signs reviewed and stable. General: Chronically ill-appearing female, no distress, appears older than stated age, morbidly obese Derm: Left arm large area of circumferential ecchymosis noted without erythema or skin breaks, warm Head: atraumatic, normocephalic, symmetric Eyes: EOMI, no lid lag, anicteric sclera, pupils equal round reactive to light ENT: Nose and ears atraumatic Neck: No cervical lymphadenopathy, trachea midline, supple Mouth: no lip lesion, mucus membranes moist Cardiovascular: S1S2 reg, no murmur, positive dorsalis pedis pulse bilateral, no edema Lungs: CTA bilateral, no rhonchi, no rales, no accessory muscle use Abdominal: soft, nontender to palpation, no guarding Ext: muscle strength 3 out of 5 of bilateral lower extremities with strength 4 out of 5 of bilateral upper extremities in all 4 extremities grossly, no gross muscle atrophy, no contractures, Neuro: CN II-XI grossly intact, no gross focal neuro deficits Psych: Alert, oriented, appropriate affect A total of 32 minutes of time were spent preparing this complex discharge summary. Patient was discharged on 04/13/2024 at 1517. Patient Condition at Discharge: Stable Plan - Discharge Summary Discharge Rx Participant: Yes New Discharge Prescriptions: Continue Escitalopram Oxalate [Lexapro] 20 mg PO DAILY Levothyroxine Sodium [Synthroid] 137 mcg PO DAILY Pantoprazole [Protonix] 40 mg PO DAILY Gabapentin 600 mg PO TID Multivitamins, Thera [Multivitamin (formulary)] 1 tab PO DAILY methocarbamoL [Robaxin] 500 mg PO TID PRN PRN Reason: Muscle Spasm lisinopriL 30 mg PO DAILY Ibuprofen [Motrin] 800 mg PO TID-W/MEALS PRN PRN Reason: Pain Sodium Chloride Tab 1 gm PO DAILY Sennosides [Senokot] 8.6 mg PO BID PRN #60 tab PRN Reason: Constipation Thiamine [Vitamin B-1] 100 mg PO DAILY #60 tab HYDROcodone/APAP 5-325MG [[place] 5-325] 1 tab PO Q6HR PRN 3 Days #12 tab PRN Reason: Breakthrough Pain Discharge Medication List Escitalopram Oxalate [Lexapro] 20 mg PO DAILY 07/04/22 [History] methocarbamoL [Robaxin] 500 mg PO TID PRN 10/16/22 [History] Gabapentin 600 mg PO TID 04/06/24 [History] Ibuprofen [Motrin] 800 mg PO TID-W/MEALS PRN 04/06/24 [History] Levothyroxine Sodium [Synthroid] 137 mcg PO DAILY 04/06/24 [History] Pantoprazole [Protonix] 40 mg PO DAILY 04/06/24 [History] Sodium Chloride Tab 1 gm PO DAILY 04/06/24 [History] lisinopriL 30 mg PO DAILY 04/06/24 [History] Sennosides [Senokot] 8.6 mg PO BID PRN #60 tab 04/10/24 [Rx] Thiamine [Vitamin B-1] 100 mg PO DAILY #60 tab 04/10/24 [Rx] Multivitamins, Thera [Multivitamin (formulary)] 1 tab PO DAILY 04/11/24 [History] HYDROcodone/APAP 5-325MG [[place] 5-325] 1 tab PO Q6HR PRN 3 Days #12 tab 04/13/24 [Rx] Follow up Appointment(s)/Referral(s): Jann Dc DO [Primary Care Provider] - 1-2 days Ismael Dimas DO [Doctor of Osteopathic Medicine] - 1 Week Patient Instructions/Handouts: Knee Pain (GEN) Activity/Diet/Wound Care/Special Instructions: Please see PCP and orthopedic surgery. Discharge Disposition: TRANSFER TO SNF/ECF
== END 2024-04-13 17:48 ==
LOC: EC 03:43 → INTOOBSV 04:59 → 5NMEDONC 04:59
PROVIDERS: ADMIT Internal Medicine; ATTEND Internal Medicine
DX: E86.0 Dehydration (principal); S72.402A Unspecified fracture of lower end of left femur, initial encounter for closed fracture; R53.81 Other malaise; R62.7 Adult failure to thrive; E03.9 Hypothyroidism, unspecified; E78.5 Hyperlipidemia, unspecified; F10.20 Alcohol dependence, uncomplicated; F17.200 Nicotine dependence, unspecified, uncomplicated; F32.A Depression, unspecified; F41.9 Anxiety disorder, unspecified; S40.022A Contusion of left upper arm, initial encounter; I10 Essential (primary) hypertension; Z79.1 Long term (current) use of non-steroidal anti-inflammatories (NSAID); Z79.899 Other long term (current) drug therapy; Z79.890 Hormone replacement therapy
CPT/HCPCS: 96376 ×2; 96361 ×3; 96365; 96366; 96372 ×3; 96375 ×3; 99285; 36415; 93005; 97162; 83880; 80053 ×2; 83605; 83690; 83735 ×2; 84100 ×2; 84443; 84484; 85025 ×2; 85610; 85730; 81003; 81001; 73564; 71045; G0378 ×3; J1644 ×3; J2405; J1171; J3475; J1885 ×3

== ENCOUNTER 2024-04-30 10:26 | Observation (INO) | payer MEDICARE, OTHER ==
--- NOTE | 2024-04-30 10:56 | ED ---
General Adult HPI - General Chief complaint: Nausea/Vomiting/Diarrhea Stated complaint: Chest pain, NVD Time Seen by Provider: 04/30/24 10:30 Source: patient, EMS, RN notes reviewed Mode of arrival: EMS Limitations: no limitations - History of Present Illness Initial comments: Patient is a 63-year-old female present to the emergency department with several complaints. Patient has had several days of nausea vomiting and diarrhea. Patient has difficulty holding food down. Patient has been retching as well as watery diarrhea. Patient does have some abdominal discomfort. Patient developed chest discomfort the past day or 2. Discomfort feels like pressure. Questionable dyspnea. - Related Data Home Medications Medication Instructions Recorded Confirmed Escitalopram Oxalate [Lexapro] 20 mg PO DAILY 07/04/22 04/11/24 methocarbamoL [Robaxin] 500 mg PO TID PRN 10/16/22 04/11/24 Gabapentin 600 mg PO TID 04/06/24 04/11/24 Ibuprofen [Motrin] 800 mg PO TID-W/MEALS PRN 04/06/24 04/11/24 Levothyroxine Sodium [Synthroid] 137 mcg PO DAILY 04/06/24 04/11/24 Pantoprazole [Protonix] 40 mg PO DAILY 04/06/24 04/11/24 Sodium Chloride Tab 1 gm PO DAILY 04/06/24 04/11/24 lisinopriL 30 mg PO DAILY 04/06/24 04/11/24 Multivitamins, Thera [Multivitamin 1 tab PO DAILY 04/11/24 04/11/24 (formulary)] Previous Rx's Medication Instructions Recorded Sennosides [Senokot] 8.6 mg PO BID PRN #60 tab 04/10/24 Thiamine [Vitamin B-1] 100 mg PO DAILY #60 tab 04/10/24 HYDROcodone/APAP 5-325MG [[place] 1 tab PO Q6HR PRN 3 Days #12 tab 04/13/24 5-325] Allergies Allergy/AdvReac Type Severity Reaction Status Date / Time No Known Allergies Allergy Verified 04/30/24 14:28 Review of Systems ROS Statement: Those systems with pertinent positive or pertinent negative responses have been documented in the HPI. ROS Other: All systems not noted in ROS Statement are negative. Constitutional: Denies: fever Eyes: Denies: eye pain ENT: Denies: ear pain Respiratory: Reports: as per HPI Cardiovascular: Reports: as per HPI, chest pain Gastrointestinal: Reports: as per HPI, abdominal pain, nausea, vomiting, diarrhea Musculoskeletal: Denies: back pain Neurological: Denies: weakness Past Medical History Past Medical History: Hypertension, Thyroid Disorder Additional Past Medical History / Comment(s): anxiety History of Any Multi-Drug Resistant Organisms: None Reported Past Surgical History: Unable to Obtain, Back Surgery, Section, Orthopedic Surgery Past Anesthesia/Blood Transfusion Reactions: No Reported Reaction Past Psychological History: ADD/ADHD, Anxiety, Bipolar, Depression Smoking Status: Current every day smoker Past Alcohol Use History: Rare Past Drug Use History: Marijuana - Past Family History Father Family Medical History: Coronary Artery Disease (CAD) General Exam Limitations: no limitations General appearance: alert, in no apparent distress Head exam: Present: normocephalic Eye exam: Present: normal appearance Neck exam: Present: normal inspection Respiratory exam: Present: normal lung sounds bilaterally Cardiovascular Exam: Present: regular rate, normal rhythm, normal heart sounds Expanded Peripheral pulses: 2+: Radial (R), Radial (L), Dorsalis Pedis (R), Dorsalis Pedis (L) GI/Abdominal exam: Present: soft, tenderness (Minimal diffuse tenderness). Absent: distended, guarding, rebound, rigid Extremities exam: Present: normal inspection. Absent: pedal edema, calf tenderness Neurological exam: Present: alert Psychiatric exam: Present: normal affect, normal mood Skin exam: Present: normal color Course Vital Signs 04/30/24 04/30/24 04/30/24 10:27 11:56 13:03 Temperature 98.9 F Pulse Rate 117 H 104 H 92 Respiratory 20 20 18 Rate Blood Pressure 169/90 126/81 124/72 O2 Sat by Pulse 97 99 98 Oximetry EKG Findings - EKG Results: EKG: interpreted by ERMD (Borderline lateral ST depression), sinus rhythm, normal axis, normal QRS Medical Decision Making - Medical Decision Making Was pt. sent in by a medical professional or institution (, PA, PRESSURE WASHER, urgent care, hospital, or long term...) When possible be specific @ -No Did you speak to anyone other than the patient for history (EMS, parent, family, police, friend...)? What history was obtained from this source @ -No Did you review nursing and triage notes (agree or disagree)? Why? @ -I reviewed and agree with nursing and triage notes Were old charts reviewed (outside hosp., previous admission, EMS record, old EKG, old radiological studies, urgent care reports/EKG's, long term records)? Report findings @ -Previous chest x-ray is reviewed does not reveal acute abnormality as well. Differential Diagnosis (chest pain, altered mental status, abdominal pain women, abdominal pain men, vaginal bleeding, weakness, fever, dyspnea, syncope, headache, dizziness, GI bleed, back pain, seizure, CVA, palpatations, mental health, musculoskeletal)? @ -Differential Chest Pain: Stable Angina, Unstable Angina, STEMI, NSTEMI Aortic Dissection, Pneumothorax, Musculoskeletal, Esophageal Spasm GERD, Cholecystitis, Pancreatitis, Zoster, this is not meant to be an all-inclusive list. EKG interpreted by me (3pts min.). @ -As above X-rays interpreted by me (1pt min.). @ -Chest x-ray and abdominal x-ray did not reveal acute abnormality CT interpreted by me (1pt min.). @ -None done U/S interpreted by me (1pt. min.). @ -None done What testing was considered but not performed or refused? (CT, X-rays, U/S, labs)? Why? @ -None What meds were considered but not given or refused? Why? @ -None Did you discuss the management of the patient with other professionals (professionals i.e. , PA, PRESSURE WASHER, lab, RT, psych nurse, oncology social work, melter supervisor, teacher, plain clothes police officer, assistant case manager)? Give summary @ -Case discussed with Dr. Esposito who will admit covering Dr. Irizarry Was smoking cessation discussed for >3mins.? @ -No Was critical care preformed (if so, how long)? @ -No Were there social determinants of health that impacted care today? How? (Homelessness, low income, unemployed, alcoholism, drug addiction, transportation, low edu. Level, literacy, decrease access to med. care, skilled nursing, rehab)? @ -No Was there de-escalation of care discussed even if they declined (Discuss DNR or withdrawal of care, Hospice)? DNR status @ -No What co-morbidities impacted this encounter? (DM, HTN, Smoking, COPD, CAD, Cancer, CVA, ARF, Chemo, Hep., AIDS, mental health diagnosis, sleep apnea, morbid obesity)? @ -None Was patient admitted / discharged? Hospital course, mention meds given and route, prescriptions, significant lab abnormalities, going to OR and other pertinent info. @ -Patient presents with chest discomfort as well as some abdominal/vomiting symptoms. Patient reevaluated with some improvement. Vomiting resolved. Patient will be admitted, admission orders written. Consult placed. Undiagnosed new problem with uncertain prognosis? @ -No Drug Therapy requiring intensive monitoring for toxicity (Heparin, Nitro, Insulin, Cardizem)? @ -No Were any procedures done? @ -No Diagnosis/symptom? @ -Chest pain Acute, or Chronic, or Acute on Chronic? @ -Acute Uncomplicated (without systemic symptoms) or Complicated (systemic symptoms)? @ -Default Side effects of treatment? @ -No Exacerbation, Progression, or Severe Exacerbation? @ -No Poses a threat to life or bodily function? How? (Chest pain, USA, MS, pneumonia, PE, COPD, DKA, ARF, appy, cholecystitis, CVA, Diverticulitis, Homicidal, Suicidal, threat to staff... and all critical care pts) @ -Threat to cardiac function - Lab Data Result diagrams: 04/30/24 11:02 04/30/24 12:51 Lab Results 04/30/24 04/30/24 04/30/24 Range/Units 11:02 11:02 12:51 WBC 9.5 (3.8-10.6) k/uL RBC 3.66 L (3.80-5.40) m/uL Hgb 10.9 L (11.4-16.0) gm/dL Hct 34.6 (34.0-46.0) % MCV 94.6 (80.0-100.0) fL MCH 29.7 (25.0-35.0) pg MCHC 31.4 (31.0-37.0) g/dL RDW 16.2 H (11.5-15.5) % Plt Count 666 H D (150-450) k/uL MPV 6.7 Neutrophils % 76 % Lymphocytes % 15 % Monocytes % 6 % Eosinophils % 2 % Basophils % 0 % Neutrophils # 7.2 (1.3-7.7) k/uL Lymphocytes # 1.4 (1.0-4.8) k/uL Monocytes # 0.6 (0-1.0) k/uL Eosinophils # 0.2 (0-0.7) k/uL Basophils # 0.0 (0-0.2) k/uL Anisocytosis Slight PT 11.9 (10.0-12.5) sec INR 1.1 (<1.2) APTT 31.6 H (22.0-30.0) sec Sodium (137-145) mmol/L Potassium (3.5-5.1) mmol/L Chloride (98-107) mmol/L Carbon Dioxide (22-30) mmol/L Anion Gap mmol/L BUN (7-17) mg/dL Creatinine (0.52-1.04) mg/dL Est GFR (CKD-EPI)AfAm (>60 ml/min/1.73 sqM) Est GFR (CKD-EPI)NonAf (>60 ml/min/1.73 sqM) Glucose (74-99) mg/dL Calcium (8.4-10.2) mg/dL Total Bilirubin (0.2-1.3) mg/dL AST (14-36) U/L ALT (4-34) U/L Alkaline Phosphatase (38-126) U/L Troponin I <0.012 (0.000-0.034) ng/mL Total Protein (6.3-8.2) g/dL Albumin (3.5-5.0) g/dL Amylase (30-110) U/L Lipase (23-300) U/L 04/30/24 Range/Units 12:51 WBC (3.8-10.6) k/uL RBC (3.80-5.40) m/uL Hgb (11.4-16.0) gm/dL Hct (34.0-46.0) % MCV (80.0-100.0) fL MCH (25.0-35.0) pg MCHC (31.0-37.0) g/dL RDW (11.5-15.5) % Plt Count (150-450) k/uL MPV Neutrophils % % Lymphocytes % % Monocytes % % Eosinophils % % Basophils % % Neutrophils # (1.3-7.7) k/uL Lymphocytes # (1.0-4.8) k/uL Monocytes # (0-1.0) k/uL Eosinophils # (0-0.7) k/uL Basophils # (0-0.2) k/uL Anisocytosis PT (10.0-12.5) sec INR (<1.2) APTT (22.0-30.0) sec Sodium 133 L (137-145) mmol/L Potassium 3.7 (3.5-5.1) mmol/L Chloride 101 (98-107) mmol/L Carbon Dioxide 13 L (22-30) mmol/L Anion Gap 19 mmol/L BUN 10 (7-17) mg/dL Creatinine 0.68 (0.52-1.04) mg/dL Est GFR (CKD-EPI)AfAm >90 (>60 ml/min/1.73 sqM) Est GFR (CKD-EPI)NonAf >90 (>60 ml/min/1.73 sqM) Glucose 93 (74-99) mg/dL Calcium 9.4 (8.4-10.2) mg/dL Total Bilirubin 0.9 (0.2-1.3) mg/dL AST 65 H (14-36) U/L ALT 26 (4-34) U/L Alkaline Phosphatase 190 H (38-126) U/L Troponin I (0.000-0.034) ng/mL Total Protein 8.2 (6.3-8.2) g/dL Albumin 4.0 (3.5-5.0) g/dL Amylase 35 (30-110) U/L Lipase 70 (23-300) U/L Disposition Clinical Impression: Chest pain Disposition: ADMITTED IP TO THIS HOSP Is patient prescribed a controlled substance at d/c from ED?: No Referrals: Jann Dc DO [Primary Care Provider] - 1-2 days Time of Disposition: 14:36
[2024-04-30] MEDS: ONDANSETRON 4 MG/2 ML VIAL IVP STA (11:03)
[2024-04-30] MEDS: FAMOTIDINE 20 MG/2 ML VIAL IV STA (11:06)
[2024-04-30] MEDS: SODIUM CHLORIDE 0.9% 1,000 ML IV STA (11:07)
[2024-04-30] MEDS: NITROGLYCERIN OINT 1 INCH/GM PACKET TOPICAL STA (11:09)
[2024-04-30 11:31] LABS: Anisocytosis Slight; Basophils % (A) 0 %; Eosinophils # (A) 0.2 k/uL (0-0.7); Eosinophils % (A) 2 %; HCT 34.6 % (34.0-46.0); HGB 10.9 gm/dL (11.4-16.0); Lymphocytes # (A) 1.4 k/uL (1.0-4.8); Lymphocytes % (A) 15 %; MCH 29.7 pg (25.0-35.0); MCHC 31.4 g/dL (31.0-37.0); MCV 94.6 fL (80.0-100.0); Mean Platelet Volume 6.7; Monocytes # (A) 0.6 k/uL (0-1.0); Monocytes % (A) 6 %; Neutrophils # (A) 7.2 k/uL (1.3-7.7); Neutrophils % (A) 76 %; RBC 3.66 m/uL (3.80-5.40); RDW 16.2 % (11.5-15.5); WBC 9.5 k/uL (3.8-10.6)
[2024-04-30 11:51] LABS: Platelet Count 666 k/uL (150-450)
--- NOTE | 2024-04-30 11:52 | XR ---
EXAMINATION TYPE: XR KUB DATE OF EXAM: 04/30/2024 11:45 AM COMPARISON: None CLINICAL INDICATION: Female, 63 years old with history of abdominal pain; [facility] TECHNIQUE: One radiographic view of the abdomen was obtained. FINDINGS: The bowel gas pattern is nonspecific without dilated loops of small or large bowel. . Fecal material and gas are demonstrated throughout the colon and rectum. There is no evidence for organomegaly or pneumoperitoneum. The osseous structures are intact. No ab normal calcifications are present. Multilevel degeneration changes throughout the spine. Right hip fi xation hardware appears intact. IMPRESSION: Nonspecific bowel gas pattern without radiographic evidence for acute process. [facility], , 04/30/2024 11:49 AM
--- NOTE | 2024-04-30 11:54 | XR ---
EXAMINATION TYPE: XR chest 2V DATE OF EXAM: 04/30/2024 11:44 AM COMPARISON: 04/11/2024 CLINICAL INDICATION: Female, 63 years old with history of abdominal pain; [facility] TECHNIQUE: XR chest 2V Frontal and lateral views of the chest. FINDINGS: Lungs/Pleura: There is no evidence of pleural effusion, focal consolidation, or pneumothorax. Pulmonary vascularity: Unremarkable. Heart/mediastinum: Cardiomediastinal silhouette is unremarkable. Musculoskeletal: No acute osseous pathology. IMPRESSION: 1. No acute cardiopulmonary disease process. 2. COPD changes. [facility], , 04/30/2024 11:51 AM
[2024-04-30 12:04] LABS: INR 1.1 (<1.2); Partial Thromboplastin Time 31.6 sec (22.0-30.0); Prothrombin Time 11.9 sec (10.0-12.5)
[2024-04-30 13:24] LABS: ALT 26 U/L (4-34); AST 65 U/L (14-36); African American GFR (CKD) >90 (>60 ml/min/1.73 sqM); Alkaline Phosphatase 190 U/L (38-126); Amylase 35 U/L (30-110); Anion Gap 19 mmol/L; Blood Urea Nitrogen 10 mg/dL (7-17); Calcium 9.4 mg/dL (8.4-10.2); Carbon Dioxide 13 mmol/L (22-30); Chloride 101 mmol/L (98-107); Glucose 93 mg/dL (74-99); Lipase 70 U/L (23-300); Non-African American GFR(CKD) >90 (>60 ml/min/1.73 sqM); Potassium 3.7 mmol/L (3.5-5.1); Sodium 133 mmol/L (137-145); Total Bilirubin 0.9 mg/dL (0.2-1.3); Total Protein 8.2 g/dL (6.3-8.2)
[2024-04-30] MEDS ORDERED: NITROGLYCERIN SL TABS 0.4 MG TAB SUBLINGUAL PRN (14:41)
[2024-04-30] MEDS ORDERED: ONDANSETRON 4 MG/2 ML VIAL IVP PRN (14:43)
[2024-04-30] MEDS: MORPHINE SULFATE 4 MG/ML SYRINGE IVP STA (15:03)
[2024-04-30] MEDS: ASPIRIN 81 MG PO STA (15:07)
[2024-04-30] MEDS: SODIUM CHLORIDE 0.9% 1,000 ML IV SCH (15:07)
--- NOTE | 2024-04-30 15:24 | P.HPIM ---
History of Present Illness H&P Date: 04/30/24 Chief Complaint: abdominal pain, chest pain, nausea, vomiting and diarrhea Patient is a 63-year-old female with a past medical history of alcohol abuse, hypertension, hypothyroidism, anxiety and depression who was recently hospitalized for debility and was discharged today senior living facility. Patient comes into the ED today because of nausea vomiting and watery diarrhea that has been going on for 1 week and for the last 2 days started having abdominal pain radiating to her chest. Patient states that the pain is worse when she is having dry heaves. She states that the pain is similar to when she had pancreatitis. Patient states that she drinks 2 beers a day. Patient states that she is not able to keep anything down. In the ED hemoglobin is 10.9 and her baseline hemoglobin is around 8.3 so she appears hemoconcentrated. Platelets are 666 which is around her baseline. Bicarb is 13. Alk phos is 190 which is around her baseline. Lipase 70. Troponin less than 0.012. EKG did not show any obvious ST changes to me. ROS: 10 ROS reviewed and are negative except as noted in HPI Physical exam General: [Alert and oriented, well nourished, no acute distress]. Appears chronically debilitated Eye: [PERRL, EOMI, normal conjunctiva]. HENT: [Normocephalic, clear tympanic membranes, normal hearing, moist oral mucosa, no scleral icterus, no sinus tenderness]. Neck: [Supple, non-tender, no carotid bruits, no JVD, no lymphadenopathy]. Lungs: [Clear to auscultation and percussion, non-labored respiration]. Heart: [Normal rate, regular rhythm, no murmur, gallop or edema]. Abdomen: [Soft, tenderness to palpate in the epigastric area, normal bowel sounds, no masses]. Musculoskeletal: [Normal range of motion and strength, no tenderness or swelling]. Neurologic: [Awake, alert, and oriented X3, CN II-XII intact]. Psychiatric: [Cooperative, appropriate mood and affect]. Assessment and plan Nausea vomiting and diarrhea Suspect due to gastroenteritis Will start the patient on aggressive fluids with lactated Ringer's 130 cc an h our Hold her home dose Lasix Check stool culture and C. difficile Start clear liquid diet Metabolic acidosis secondary to GI losses Bicarb on admission 13 Trend BMP Abdominal pain likely due to gastroenteritis and abdominal soreness from dry heaving Will start the patient on IV morphine 2 mg every 4 hours as needed Check CT abdomen pelvis Lipase is within normal limits unlikely pancreatitis Start IV Protonix 40 mg daily Chest pain I suspect is related to the abdominal pain I did not appreciate any significant ST changes on EKG Trend troponin x 2 Alcohol abuse Monitor for signs of withdrawal. I doubt patient will be withdrawing since she was recently in a senior living facility. Continue with multivitamin 1 tab p.o. daily Continue with thiamine 100 mg p.o. daily Mildly elevated liver enzymes Suspect due to fatty liver Liver enzymes are at baseline Thrombocytosis likely reactive Trend CBC Anxiety and depression Continue with escitalopram 20 mg p.o. daily Neuropathy Continue with gabapentin 600 mg p.o. 3 times daily Hypothyroidism Continue levothyroxine 150 mcg p.o. daily Hypertension Continue lisinopril 30 mg p.o. daily Chronic hyponatremia Continue with sodium tablet 1 g p.o. daily DVT prophylaxis: Lovenox subcu 40 mg daily Past Medical History Past Medical History: Hypertension, Thyroid Disorder Additional Past Medical History / Comment(s): anxiety History of Any Multi-Drug Resistant Organisms: None Reported Past Surgical History: Unable to Obtain, Back Surgery, Section, Orthopedic Surgery Past Anesthesia/Blood Transfusion Reactions: No Reported Reaction Past Psychological History: ADD/ADHD, Anxiety, Bipolar, Depression Smoking Status: Current every day smoker Past Alcohol Use History: Rare Past Drug Use History: Marijuana - Past Family History Father Family Medical History: Coronary Artery Disease (CAD) Medications and Allergies Home Medications Medication Instructions Recorded Confirmed Type Escitalopram Oxalate [Lexapro] 20 mg PO DAILY 07/04/22 04/30/24 History methocarbamoL [Robaxin] 500 mg PO TID PRN 10/16/22 04/30/24 History Gabapentin 600 mg PO TID 04/06/24 04/30/24 History Ibuprofen [Motrin] 800 mg PO TID-W/MEALS PRN 04/06/24 04/30/24 History Sodium Chloride Tab 1 gm PO DAILY 04/06/24 04/30/24 History lisinopriL 30 mg PO DAILY 04/06/24 04/30/24 History Sennosides [Senokot] 8.6 mg PO BID PRN #60 tab 04/10/24 04/30/24 Rx Thiamine [Vitamin B-1] 100 mg PO DAILY #60 tab 04/10/24 04/30/24 Rx Multivitamins, Thera [Multivitamin 1 tab PO DAILY 04/11/24 04/30/24 History (formulary)] Furosemide [Lasix] 40 mg PO DAILY 04/30/24 04/30/24 History Levothyroxine Sodium [Synthroid] 150 mcg PO DAILY 04/30/24 04/30/24 History Liothyronine Sodium [Cytomel] 5 mcg PO DAILY 04/30/24 04/30/24 History Omeprazole 20 mg PO DAILY 04/30/24 04/30/24 History Potassium Chloride ER [K-Dur 10] 10 meq PO DAILY 04/30/24 04/30/24 History Allergies Allergy/AdvReac Type Severity Reaction Status Date / Time No Known Allergies Allergy Verified 04/30/24 14:28 Physical Exam Osteopathic Statement: *. No significant issues noted on an osteopathic structural exam other than those noted in the History and Physical/Consult. Vitals: Vital Signs Temp Pulse Resp BP Pulse Ox 04/30/24 13:03 92 18 124/72 98 04/30/24 11:56 104 H 20 126/81 99 04/30/24 10:27 98.9 F 117 H 20 169/90 97 Intake and Output 04/30/24 04/30/24 04/30/24 06:59 14:59 22:59 Other: Weight 92.986 kg Results CBC & Chem 7: 04/30/24 11:02 04/30/24 12:51 Labs: Abnormal Lab Results - Last 24 Hours (Table) 04/30/24 04/30/24 04/30/24 Range/Units 11:02 11:02 12:51 RBC 3.66 L (3.80-5.40) m/uL Hgb 10.9 L (11.4-16.0) gm/dL RDW 16.2 H (11.5-15.5) % Plt Count 666 H D (150-450) k/uL APTT 31.6 H (22.0-30.0) sec Sodium 133 L (137-145) mmol/L Carbon Dioxide 13 L (22-30) mmol/L AST 65 H (14-36) U/L Alkaline Phosphatase 190 H (38-126) U/L
[2024-04-30] MEDS: GABAPENTIN 300 MG CAP PO SCH (15:53)
[2024-04-30] MEDS: LACTATED RINGERS 1,000 ML IV ONE (15:55)
--- NOTE | 2024-04-30 16:43 | CT ---
EXAMINATION TYPE: CT abdomen pelvis wo con DATE OF EXAM: 04/30/2024 COMPARISON: None INDICATION: abdominal pain DLP: 655 mGycm, Automated exposure control for dose reduction was used. CONTRAST: 0 mL of Isovue 300. Study performed without Oral Contrast TECHNIQUE: Axial images were obtained from above the diaphragm to the pubic rami in the axial plane a t 5 mm thick sections. Reconstructed images are reviewed on the computer in the coronal plane. FINDINGS: Limited CT sections are obtained the lung bases. The lung bases are clear. CT ABDOMEN: Liver: There is moderate fatty infiltration the liver. No discrete masses are evident. Spleen: Normal Pancreas: Normal Adrenal glands: The adrenal glands are normal. Gallbladder: Normal Kidneys: No masses are evident. No hydronephrosis is present. No cysts are present. There is a 0.3 cm nonobstructing renal stone in lower pole left kidney. Aorta: Vascular calcification is within the aorta. Inferior vena cava: Normal. CT PELVIS: Loops of bowel within the abdomen and pelvis are normal. There are loops of bowel which are incom pletely distended or lack oral contrast limiting their evaluation. Appendix: Not identified. No dilated tubular structure or inflammatory changes evident. Urinary bladder: Decompressed and cannot be well evaluated. Genitourinary structures: Uterus and adnexa appear within normal limits for the patient's age. Correl ate with surgical history. Osseous structures: No suspicious lytic or sclerotic lesions. IMPRESSION: 1. Moderate fatty infiltration liver. 2. Nonobstructing 0.3 cm lower left renal stone [facility], Workstation: [facility], 04/30/2024 4:40 PM
[2024-04-30] MEDS: NITROGLYCERIN OINT 1 INCH/GM PACKET TOPICAL SCH (18:25)
[2024-04-30] MEDS: methocarbamoL 500 MG TAB PO PRN (21:31)
[2024-04-30] MEDS: MORPHINE SULFATE 2 MG/ML SYRINGE IVP PRN (22:08)
[2024-05-01] MEDS: LEVOTHYROXINE 75 MCG TAB PO SCH (06:33)
[2024-05-01] MEDS ORDERED: DOBUTamine DRIP for NUC MED 500 MG/250 ML BAG IV ONE (08:00)
[2024-05-01 08:16] LABS: Anisocytosis Slight; Basophils # (A) 0.1 k/uL (0-0.2); Basophils % (A) 1 %; Eosinophils # (A) 0.3 k/uL (0-0.7); Eosinophils % (A) 3 %; HCT 33.4 % (34.0-46.0); HGB 10.4 gm/dL (11.4-16.0); Lymphocytes # (A) 2.1 k/uL (1.0-4.8); Lymphocytes % (A) 27 %; MCH 30.2 pg (25.0-35.0); MCHC 31.3 g/dL (31.0-37.0); MCV 96.5 fL (80.0-100.0); Macrocytosis Slight; Mean Platelet Volume 7.8; Monocytes # (A) 0.5 k/uL (0-1.0); Monocytes % (A) 7 %; Neutrophils # (A) 4.7 k/uL (1.3-7.7); Neutrophils % (A) 60 %; Platelet Count 622 k/uL (150-450); RBC 3.46 m/uL (3.80-5.40); WBC 7.8 k/uL (3.8-10.6)
[2024-05-01] MEDS ORDERED: DOBUTamine DRIP for NUC MED 500 MG in DEXTROSE/WATER 1 250ML.BAG IV PRN (08:16)
--- NOTE | 2024-05-01 09:21 | P.CRDCN ---
History of Present Illness Consult date: 05/01/24 Consult reason: chest pain History of present illness: This is a 63-year-old female with past medical history of hypothyroidism, hypertension, alcohol abuse with drinking daily a pint of binta and some beer for many years. Patient had a recent hospitalization in March at which time she was treated for pancreatitis. Patient states that she came into the hospital because she was having chest pain and abdominal pain that been going on for 1 week and getting worse. She thought it was related to pancreatitis like she had before as the pain was very similar. She states she has had no alcohol for 1 week now. Otherwise the pain comes and goes on and off for a while prior to this event. Patient has also had some nausea, vomiting and diarrhea. Blood pressure 144/81, heart rate 86, pulse ox 98% on room air. EKG: Sinus rhythm with nonspecific ST-T wave changes. Chest x-ray: No acute cardiopulmonary disease process. COPD changes. KUB nonspecific bowel gas pattern without acute process. CT abdomen and pelvis revealed moderate fatty infiltration of the liver. Nonobstructive 0.3 cm lower left renal stone. Laboratory studies: WBC 7.8, hemoglobin 10.4, platelet count 622. Sodium 133, potassium 3.7, creatinine 0.68. Troponin negative x 3. Alkaline phosphatase 190. Amylase 35 and lipase 70. Home cardiac medications: Lisinopril 30 mg daily, potassium chloride 10 mill equivalents daily, Lasix 40 mg daily, also on levothyroxine 150 mcg daily. Review Of Systems: At the time of my exam: CONSTITUTIONAL: Denies fever or chills. HEENT: Denies blurred vision, vision changes, or eye pain. Denies hemoptysis CARDIOVASCULAR: Denies chest pain. Denies orthopnea. Denies PND. Denies palpitations RESPIRATORY: Denies shortness of breath. GASTROINTESTINAL: Reports abdominal pain. Denies nausea or vomiting improved, positive diarrhea. HEMATOLOGIC: Denies bleeding disorders. GENITOURINARY: Denies any blood in urine. SKIN: Denies puritis. Denies rash. Physical examination: Gen: This is a 63-year-old female in no acute distress VS: reviewed HEENT: Head is atraumatic, normocephalic. Pupils equal, round. Sclerae is anicteric. NECK: Supple. No JVD. LUNGS: Clear to auscultation. No wheezes or rhonchi. No intercostal retraction s. HEART: Regular rate and rhythm. No murmur. ABDOMEN: Soft No tenderness. EXTREMITIES: No pedal edema. No calf tenderness. NEUROLOGICAL: Patient is awake, alert and oriented x3. Assessment: Atypical chest pain, acute coronary syndrome ruled out Abdominal pain Recent history of pancreatitis Hypertension Hypothyroidism Alcohol abuse Plan: Resume patient's home cardiac medications Obtain dobutamine stress echocardiogram Obtain 2-D echocardiogram and Doppler study to assess cardiac structure and function If stress test and echocardiogram are unremarkable, patient is cleared for discharge from cardiology perspective. Thank you kindly for this consultation. Nurse practitioner note has been reviewed, I agree with documented findings and plan of care. Patient was seen and examined. Past Medical History Past Medical History: Hypertension, Thyroid Disorder Additional Past Medical History / Comment(s): anxiety History of Any Multi-Drug Resistant Organisms: None Reported Past Surgical History: Unable to Obtain, Back Surgery, Section, Orthopedic Surgery Past Anesthesia/Blood Transfusion Reactions: No Reported Reaction Past Psychological History: ADD/ADHD, Anxiety, Bipolar, Depression Smoking Status: Current every day smoker Past Alcohol Use History: Rare Past Drug Use History: Marijuana - Past Family History Father Family Medical History: Coronary Artery Disease (CAD) Medications and Allergies Home Medications Medication Instructions Recorded Confirmed Type Escitalopram Oxalate [Lexapro] 20 mg PO DAILY 07/04/22 04/30/24 History methocarbamoL [Robaxin] 500 mg PO TID PRN 10/16/22 04/30/24 History Gabapentin 600 mg PO TID 04/06/24 04/30/24 History Ibuprofen [Motrin] 800 mg PO TID-W/MEALS PRN 04/06/24 04/30/24 History Sodium Chloride Tab 1 gm PO DAILY 04/06/24 04/30/24 History lisinopriL 30 mg PO DAILY 04/06/24 04/30/24 History Sennosides [Senokot] 8.6 mg PO BID PRN #60 tab 04/10/24 04/30/24 Rx Thiamine [Vitamin B-1] 100 mg PO DAILY #60 tab 04/10/24 04/30/24 Rx Multivitamins, Thera [Multivitamin 1 tab PO DAILY 04/11/24 04/30/24 History (formulary)] Furosemide [Lasix] 40 mg PO DAILY 04/30/24 04/30/24 History Levothyroxine Sodium [Synthroid] 150 mcg PO DAILY 04/30/24 04/30/24 History Liothyronine Sodium [Cytomel] 5 mcg PO DAILY 04/30/24 04/30/24 History Omeprazole 20 mg PO DAILY 04/30/24 04/30/24 History Potassium Chloride ER [K-Dur 10] 10 meq PO DAILY 04/30/24 04/30/24 History Allergies Allergy/AdvReac Type Severity Reaction Status Date / Time No Known Allergies Allergy Verified 04/30/24 14:28 Physical Exam Vitals: Vital Signs Temp Pulse Resp BP Pulse Ox 05/01/24 06:36 85 16 148/81 98 05/01/24 02:08 88 18 141/68 96 04/30/24 21:33 92 16 167/77 97 04/30/24 17:49 96 18 148/74 96 04/30/24 13:03 92 18 124/72 98 04/30/24 11:56 104 H 20 126/81 99 04/30/24 10:27 98.9 F 117 H 20 169/90 97 Results 05/01/24 06:59 04/30/24 12:51 Cardiac Enzymes 04/30/24 04/30/24 04/30/24 Range/Units 12:51 12:51 15:40 AST 65 H (14-36) U/L Troponin I <0.012 <0.012 (0.000-0.034) ng/mL 04/30/24 Range/Units 18:50 AST (14-36) U/L Troponin I <0.012 (0.000-0.034) ng/mL Coagulation 04/30/24 Range/Units 11:02 PT 11.9 (10.0-12.5) sec APTT 31.6 H (22.0-30.0) sec CBC 04/30/24 Range/Units 11:02 WBC 9.5 (3.8-10.6) k/uL RBC 3.66 L (3.80-5.40) m/uL Hgb 10.9 L (11.4-16.0) gm/dL Hct 34.6 (34.0-46.0) % Plt Count 666 H D (150-450) k/uL Comprehensive Metabolic Panel 04/30/24 Range/Units 12:51 Sodium 133 L (137-145) mmol/L Potassium 3.7 (3.5-5.1) mmol/L Chloride 101 (98-107) mmol/L Carbon Dioxide 13 L (22-30) mmol/L BUN 10 (7-17) mg/dL Creatinine 0.68 (0.52-1.04) mg/dL Glucose 93 (74-99) mg/dL Calcium 9.4 (8.4-10.2) mg/dL AST 65 H (14-36) U/L ALT 26 (4-34) U/L Alkaline Phosphatase 190 H (38-126) U/L Total Protein 8.2 (6.3-8.2) g/dL Albumin 4.0 (3.5-5.0) g/dL Current Medications Generic Name Dose Route Start Last Admin Trade Name Freq PRN Reason Stop Dose Admin Aspirin 325 mg 05/01/24 09:00 Aspirin 325 Mg Tab PO DAILY [facility] Enoxaparin Sodium 40 mg 05/01/24 09:00 Enoxaparin 40 Mg/0.4 Ml Syringe SQ DAILY [facility] Escitalopram Oxalate 20 mg 05/01/24 09:00 Escitalopram 20 Mg Tab PO DAILY [facility] Gabapentin 600 mg 04/30/24 16:00 04/30/24 21:31 Gabapentin 300 Mg Cap PO 600 mg TID STEPHANIA Administration Levothyroxine Sodium 150 mcg 05/01/24 06:30 05/01/24 06:33 Levothyroxine 75 Mcg Tab PO 150 mcg DAILY@0630 STEPHANIA Administration Liothyronine Sodium 5 mcg 05/01/24 09:00 Liothyronine Sodium 5 Mcg Tab PO DAILY [facility] Lisinopril 30 mg 05/01/24 09:00 Lisinopril 10 Mg Tab PO DAILY [facility] Methocarbamol 500 mg 04/30/24 15:13 04/30/24 21:31 Methocarbamol 500 Mg Tab PO 500 mg TID PRN Administration Muscle Spasm Morphine Sulfate 2 mg 04/30/24 15:12 05/01/24 06:34 Morphine Sulfate 2 Mg/Ml Syringe IVP 2 mg Q4HR PRN Administration Pain/Discomfort Multivitamins 1 each 05/01/24 09:00 Multivitamins, Thera 1 Each Tab PO DAILY [facility] Nitroglycerin 0.4 mg 04/30/24 14:41 Nitroglycerin Sl Tabs 0.4 Mg Tab SUBLINGUAL Q5M PRN Chest Pain Nitroglycerin 1 inch 04/30/24 18:00 05/01/24 06:33 Nitroglycerin Oint 1 Inch/Gm Packet TOPICAL 1 inch Q6HR STEPHANIA Administration Ondansetron HCl 4 mg 04/30/24 14:43 Ondansetron 4 Mg/2 Ml Vial IVP Q6HR PRN Nausea And Vomiting Pantoprazole Sodium 40 mg 05/01/24 09:00 Pantoprazole 40 Mg/10 Ml Vial IVP DAILY [facility] Sodium Chloride 1 gm 05/01/24 09:00 Sodium Chloride Tab 1 Gm Tab PO DAILY [facility] Thiamine HCl 100 mg 05/01/24 09:00 Thiamine 100 Mg Tab PO DAILY STEPHANIA 04/30/24 11:02 04/30/24 12:51
[2024-05-01] MEDS: PANTOPRAZOLE 40 MG/10 ML VIAL IVP SCH (09:39)
[2024-05-01] MEDS: ENOXAPARIN 40 MG/0.4 ML SYRINGE SQ SCH (09:39)
[2024-05-01] MEDS: lisinopriL 10 MG TAB PO SCH (09:39)
[2024-05-01] MEDS: LIOTHYRONINE SODIUM 5 MCG TAB PO SCH (09:39)
[2024-05-01] MEDS: MULTIVITAMINS, THERA 1 EACH TAB PO SCH (09:40)
[2024-05-01] MEDS: ASPIRIN 325 MG TAB PO SCH (09:40)
[2024-05-01] MEDS: THIAMINE 100 MG TAB PO SCH (09:40)
[2024-05-01] MEDS: ESCITALOPRAM 20 MG TAB PO SCH (09:40)
[2024-05-01] MEDS: SODIUM CHLORIDE TAB 1 GM TAB PO SCH (09:40)
[2024-05-01 10:36] LABS: Chol/HDL Ratio 2.36 Ratio; LDL Cholesterol,Calculated 61.3 mg/dL (0.0-131.0)
[2024-05-01 10:44] LABS: Glucose 106 mg/dL (70-110)
[2024-05-01 10:45] LABS: ALT 19 U/L (8-44); AST 44 U/L (13-35); Albumin 3.5 g/dL (3.8-4.9); Alkaline Phosphatase 168 U/L (41-126); Calcium 9.6 mg/dL (8.7-10.3); Carbon Dioxide 17.2 mmol/L (21.6-31.8); Chloride 96 mmol/L (96-109); Globulin 3.9 g/dL (1.6-3.3); Potassium 3.9 mmol/L (3.5-5.5); Sodium 129 mmol/L (135-145); Total Bilirubin 0.5 mg/dL (0.3-1.2); Total Protein 7.4 g/dL (6.2-8.2)
[2024-05-01] MEDS ORDERED: ALPRAZolam 0.5 MG TAB PO PRN (12:29)
[2024-05-01] MEDS ORDERED: ALPRAZolam 0.25 MG TAB PO PRN (12:29)
[2024-05-01] MEDS ORDERED: NITROGLYCERIN SL TABS 0.4 MG TAB SUBLINGUAL PRN (12:29)
[2024-05-01] MEDS: ASPIRIN 325 MG TAB PO ONE (13:08)
[2024-05-01] MEDS: ATORVASTATIN 80 MG TAB PO ONE (13:15)
[2024-05-01 13:18] LABS: Glucose,Whole Blood 98 mg/dL (70-110)
[2024-05-01] MEDS: IV FLUID CONTINUATION 1,000 ML IV ONE (13:30)
[2024-05-01] MEDS: fentaNYL (PF) 50 MCG/ML 2 ML AMP IVP ONE ×2 (13:38→13:39)
[2024-05-01] MEDS: LIDOCAINE 1% INJ 10MG/ML (20 ML MDV) SQ ONE ×2 (13:38→13:39)
[2024-05-01] MEDS: MIDAZOLAM 2 MG/2 ML VIAL IVP ONE ×2 (13:38→13:39)
[2024-05-01] MEDS: HEPARIN SODIUM 1,000 UN/ML (10ML VL) IV ONE (13:42)
[2024-05-01] MEDS ORDERED: RX INFO: IV CONTRAST WAS GIVEN 1 EACH MISC MISCELLANE PRN (13:51)
[2024-05-01] MEDS: IOPAMIDOL-370 100ML BTL INJ ONE (13:51)
--- NOTE | 2024-05-01 13:55 | P.PCN ---
Date of Procedure: 05/01/24 Operative Findings: CARDIAC CATHETERIZATION PERFORMING PHYSICIAN: Harjit Shi MD, RPVI PROCEDURE PERFORMED: 1. Selective right and left coronary angiogram 2. Left heart catheterization 3. Ultrasound-guided access of the right radial artery INDICATION: Chest discomfort and abnormal stress test COMPLICATION: None APPROACH: Right radial artery LEVEL OF SEDATION: Moderate with a sedation length of 12 minutes PROCEDURE DESCRIPTION: After obtaining an informed consent, the patient was brought to cardiac laborer demolition. Local anesthesia was performed using lidocaine subcutaneously. The right radial artery was cannulated using Seldinger technique, the guidewire passed easily, following that we advanced a 5-Cameroonian sheath dilator assembly, the wire and dilator were removed and sheath was flushed. Following that, 2 mg of verapamil along with 5000 unit heparin were given. Selective right and left coronary angiogram using a 6-Cam[place]onian JR4 and JL 3.5 catheters. Following that we did left heart catheterization using 6-Cameroonian pigtail catheter. The procedure was completed there was no complication. SELECTIVE CORONARY ANGIOGRAM: The right coronary artery: Large-caliber vessel and a dominant vessel with no evidence of high-grade stenosis Left main: Is angiographically normal The left circumflex: Large-caliber vessel nondominant vessel with no evidence of high-grade stenosis The left anterior descending artery: Large-caliber vessel with mild disease only and no evidence of high-grade stenosis HEMODYNAMICS: The LVEDP was 12 mmHg with no significant gradient was identified across the aortic valve CONCLUSION: 1. Mild nonobstructive CAD 2. Normal left-sided filling pressure POSTPROCEDURE MANAGEMENT: Medical treatment
--- NOTE | 2024-05-01 14:43 | P.DS ---
Providers Date of admission: 04/30/24 14:43 Attending physician: Chilango Bates Consults: 04/30/24 14:41 Consult Physician Urgent Consulting Provider: Harjit Shi Consult Reason/Comments: cp Do you want consulting provider notified?: Yes Primary care physician: Jann Dc Hospital Course: Discharge Diagnosis: Nausea vomiting and diarrhea likely due to gastroenteritis versus gastritis from alcohol abuse Metabolic acidosis secondary to GI losses: Bicarb on discharge improved to 17. Abdominal pain and chest pain I suspect due to gastritis and heartburn from alcohol abuse. ACS rule out Alcohol abuse Mildly elevated liver enzymes secondary to fatty liver Thrombocytosis likely reactive Anxiety and depression Neuropathy Hypothyroidism Hypertension Chronic hyponatremia Hospital Course: Patient is a 63-year-old female with a past medical history of alcohol abuse, hypertension, hypothyroidism, anxiety and depression who was recently hospit alized for debility and was discharged today detention facility. Patient comes into the ED today because of nausea vomiting and watery diarrhea that has been going on for 1 week and for the last 2 days started having abdominal pain radiating to her chest. Patient states that the pain is worse when she is having dry heaves. She states that the pain is similar to when she had pancreatitis. Patient states that she drinks 2 beers a day. Patient states that she is not able to keep anything down. In the ED hemoglobin is 10.9 and her baseline hemoglobin is around 8.3 so she appears hemoconcentrated. Platelets are 666 which is around her baseline. Bicarb is 13. Alk phos is 190 which is around her baseline. Lipase 70. Troponin less than 0.012. EKG did not show any obvious ST changes. Patient was admitted to the medicine service with cardiology consultation. Patient's troponins were negative x 3. Patient's had a stress test that was abnormal. Cardiology then did a left heart catheterization that showed mild obstructive coronary artery disease. Patient was cleared for discharge from cardiology standpoint. Patient also had a CT abdomen that was unremarkable and only showed fatty liver. No stool culture was collected because patient did not have a bowel movement. I suspect patient abdominal pain is from gastritis and heartburn due to alcohol abuse. I counseled patient extensively on alcohol cessation. I will increase patient's omeprazole to 20 mg p.o. twice daily. Patient seen and examined at bedside.[] Vital signs reviewed and stable. General: [non toxic], [no distress], [appears at stated age] Derm: [warm], [dry] Head: [atraumatic], [normocephalic], [symmetric] Eyes: [EOMI], [no lid lag], [anicteric sclera] Mouth: [no lip lesion], [mucus membranes moist] Cardiovascular: [S1S2 reg], [no murmur], [positive posterior tibial pulse bilateral], Lungs: [CTA bilateral], [no rhonchi, no rales] , [no accessory muscle use] Abdominal: [soft], [ nontender to palpation], [no guarding], [no appreciable organomegaly] Ext: [no gross muscle atrophy], [no edema], [no contractures] Neuro: [ CN II-XI grossly intact], [no focal neuro deficits] Psych: [Alert], [oriented], [appropriate affect] A total of [33] minutes of time were spent preparing this complex discharge summary . Patient discharged on [05/01/2024] Patient Condition at Discharge: Fair Plan - Discharge Summary New Discharge Prescriptions: No Action RX: Escitalopram Oxalate [Lexapro] 20 mg PO DAILY RX: Gabapentin 600 mg PO TID RX: Multivitamins, Thera [Multivitamin (formulary)] 1 tab PO DAILY Liothyronine Sodium [Cytomel] 5 mcg PO DAILY Levothyroxine Sodium [Synthroid] 150 mcg PO DAILY Furosemide [Lasix] 40 mg PO DAILY RX: methocarbamoL [Robaxin] 500 mg PO TID PRN PRN Reason: Muscle Spasm RX: lisinopriL 30 mg PO DAILY RX: Ibuprofen [Motrin] 800 mg PO TID-W/MEALS PRN PRN Reason: Pain RX: Sodium Chloride Tab 1 gm PO DAILY RX: Sennosides [Senokot] 8.6 mg PO BID PRN #60 tab PRN Reason: Constipation RX: Thiamine [Vitamin B-1] 100 mg PO DAILY #60 tab Potassium Chloride ER [K-Dur 10] 10 meq PO DAILY RX: Omeprazole 20 mg PO DAILY Discharge Medication List RX: Escitalopram Oxalate [Lexapro] 20 mg PO DAILY 07/04/22 [History] RX: methocarbamoL [Robaxin] 500 mg PO TID PRN 10/16/22 [History] RX: Gabapentin 600 mg PO TID 04/06/24 [History] RX: Ibuprofen [Motrin] 800 mg PO TID-W/MEALS PRN 04/06/24 [History] RX: Sodium Chloride Tab 1 gm PO DAILY 04/06/24 [History] RX: lisinopriL 30 mg PO DAILY 04/06/24 [History] RX: Sennosides [Senokot] 8.6 mg PO BID PRN #60 tab 04/10/24 [Rx] RX: Thiamine [Vitamin B-1] 100 mg PO DAILY #60 tab 04/10/24 [Rx] RX: Multivitamins, Thera [Multivitamin (formulary)] 1 tab PO DAILY 04/11/24 [History] Furosemide [Lasix] 40 mg PO DAILY 04/30/24 [History] Levothyroxine Sodium [Synthroid] 150 mcg PO DAILY 04/30/24 [History] Liothyronine Sodium [Cytomel] 5 mcg PO DAILY 04/30/24 [History] Potassium Chloride ER [K-Dur 10] 10 meq PO DAILY 04/30/24 [History] RX: Omeprazole 20 mg PO DAILY 04/30/24 [History] Follow up Appointment(s)/Referral(s): Jann Dc DO [Primary Care Provider] - 1-2 days
--- NOTE | 2024-05-01 17:14 | CA ---
Transthoracic Echo Report Name: Roxi Crowe Age: 63 Gender: F : 1960 Exam Date: 05/01/2024 11:39 Exam Location: [place] [facility] Ht (in): 68 Wt (lb): 200 Ordering Physician: Kylah Bahena Attending/Referring Phys: [id number], Josef Bee Robber Soledad Perez RDCS Procedure CPT: Indications: Chest Pain Cardiac Hx: Technical Quality: Fair Contrast 1: Total Dose (mL): Contrast 2: Total Dose (mL): MEASUREMENTS (Male / Female) Normal Values 2D ECHO LV Diastolic Diameter PLAX 4.1 cm 4.2 - 5.9 / 3.9 - 5.3 cm LV Systolic Diameter PLAX 1.8 cm IVS Diastolic Thickness 1.5 cm 0.6 - 1.0 / 0.6 - 0.9 cm LVPW Diastolic Thickness 1.2 cm 0.6 - 1.0 / 0.6 - 0.9 cm LV Relative Wall Thickness 0.7 RV Internal Dim ED PLAX 2.2 cm LA Systolic Diameter LX 3.5 cm 3.0 - 4.0 / 2.7 - 3.8 cm LV Diastolic Volume MOD BP 55.2 cm??? 67 - 155 / 56 - 104 cm??? LV Systolic Volume MOD BP 20.6 cm??? 22 - 58 / 19 - 49 cm??? LV Ejection Fraction MOD BP 62.7 % >= 55 % LV Cardiac Index MOD BP 1686.4 cm???/min???m??? LV Diastolic Volume MOD 4C 57.2 cm??? LV Systolic Volume MOD 4C 23.5 cm??? LV Ejection Fraction MOD 4C 58.9 % LV Cardiac Index MOD 4C 1643.8 cm???/min???m??? LV Diastolic Length 4C 6.9 cm LV Systolic Length 4C 5.8 cm LV Diastolic Volume MOD 2C 47.2 cm??? LV Systolic Volume MOD 2C 17.4 cm??? LV Ejection Fraction MOD 2C 63.1 % LV Cardiac Index MOD 2C 1453.4 cm???/min???m??? LV Diastolic Length 2C 6.1 cm LV Systolic Length 2C 5.5 cm M-MODE Aortic Root Diameter MM 3.1 cm LA Systolic Diameter MM 4.0 cm LA Ao Ratio MM 1.3 AV Cusp Separation MM 2.0 cm DOPPLER AV Peak Velocity 202.5 cm/s AV Peak Gradient 16.4 mmHg AV Mean Velocity 128.1 cm/s AV Mean Gradient 7.8 mmHg AV Velocity Time Integral 31.9 cm AI Peak Velocity 207.3 cm/s AI Peak Gradient 17.2 mmHg AI Pressure Half Time 469.2 ms LVOT Peak Velocity 134.7 cm/s LVOT Peak Gradient 7.3 mmHg LVOT Velocity Time Integral 28.0 cm Mitral E Point Velocity 54.0 cm/s Mitral A Point Velocity 67.5 cm/s Mitral E to A Ratio 0.8 MV Deceleration Time 344.5 ms MV E' Velocity 6.9 cm/s Mitral E to MV E' Ratio 7.8 FINDINGS Left Ventricle Left ventricular ejection fraction is estimated at 55-60%. Moderately increased septal wall thickness. Mildly increased posterior wall thickness. No obvious regional wall motion abnormalities. Left ventricular cavity size normal. Right Ventricle Normal right ventricular size and function. Unable to estimate the right ventricular systolic pressure. Right Atrium Mild right atrial dilatation. Left Atrium Moderate left atrial dilatation. Mitral Valve Structurally normal mitral valve. Mild mitral regurgitation. No mitral stenosis. Aortic Valve Trileaflet aortic valve. Trace aortic regurgitation. No aortic stenosis. Tricuspid Valve Structurally normal tricuspid valve. Trace tricuspid regurgitation. No tricuspid stenosis. Pulmonic Valve Structurally normal pulmonic valve. Trace pulmonic regurgitation. No pulmonic stenosis. Pericardium No pericardial or pleural effusion. Aorta Normal size aortic root and proximal ascending aorta. CONCLUSIONS Normal LV function Dilated left atrium Mild mitral regurgitation Previewed by: Dr. Isaac Diallo MD (Electronically Signed) Final Date: 01 May 2024 17:13
--- NOTE | 2024-05-01 17:19 | CA ---
Dobutamine Stress Echocardiogram Report Roxi Crowe Age: 63 Gender: F : 1960 Exam Date: 05/01/2024 10:40 Exam Location: [facility] [facility] Ordering Physician: Kylah Bahena Referring Physician: Josef LOPEZ Computer Forensics Examiner: Soledad Perez RDCS Technologist: Ht (in): 68 Wt (lb): 205 Procedure CPT: Indication: Chest Pain ICD-9 Codes: Rhythm: Patient History: CHEST PAIN, DIFFICULTY IN BREATHING, HTN, FAMILY HX OF HEART DISEASE, PRIOR SMOKER, PRIOR HEART CATH Cardiac Medications: Medications in past 24 hours: Contrast: Total Dose (mL): Stress Results Protocol: Dobutamine Peak Dose (???g/kg/min): 40 Duration (min:sec): Atropine:(mg) Target HR: 135 Double Product: 86123 Resting HR: 96 Resting BP: 128 / 51 Peak HR: 129 Peak BP: 204 / 58 Max Predicted HR: 159 81 % Max Predicted HR Stress Summary: BP Response: Reason for Termination: DIRECTED PER HEAD SWAMPER Cardiac Symptoms: CHEST PAIN "6" INITIALLY AND INCREASING TO "8" OUT OF 10 DURING STRESS TEST ECG Analysis Resting EKG: Normal sinus rhythm normal axis normal intervals Stress EKG: Patient was given intravenous dobutamine over the. Of 12 minutes as per protocol achieving 81% of predicted maximal heart rate complained of chest discomfort and had [address] segment depression in the inferolateral leads Arrhythmia: Echo Analysis Base Echo Analysis: Normal left ventricular size wall motion and systolic function Low Echo Anaylsis: Normal Peak Echo Analysis: Normal hyperdynamic response Recovery Echo: Normal MEASUREMENTS (Male/Female) Normal Values CONCLUSIONS Abnormal stress test by EKG criteria Negative dobutamine echo at 81% of predicted maximal heart rate Dr. Isaac Diallo MD (Electronically Signed) Final Date: 01 May 2024 17:19
[2024-05-01 17:58] VITALS: BP 125/65; RESP 15
[2024-05-01 18:22] VITALS: PULSE 75
[2024-05-01 18:23] VITALS: TEMP 98.3
[2024-05-01] MEDS: SODIUM CHLORIDE 0.9% 1,000 ML IV SCH (18:37)
[2024-05-02] MEDS ORDERED: HEPARIN SODIUM,PORCINE (1 ML) 2,500 UNIT in SODIUM CHLORIDE 0.9% 250 ML IRRIGATION PRN (07:00)
[2024-05-02] MEDS ORDERED: HEPARIN SODIUM,PORCINE 10,000 UNIT in SODIUM CHLORIDE 0.9% 1,000 ML IRRIGATION PRN (07:00)
[2024-05-02] MEDS ORDERED: POTASSIUM CHLORIDE ER 10 MEQ TAB.ER.PRT PO SCH (09:00)
[2024-05-02] MEDS ORDERED: FUROSEMIDE 40 MG TAB PO SCH (09:00)
[2024-05-04] MEDS ORDERED: ATORVASTATIN 80 MG TAB PO ONE (07:00)
[2024-05-04] MEDS ORDERED: ASPIRIN 325 MG TAB PO ONE (07:00)
== END 2024-05-01 19:03 | disposition home or self-care (01) ==
LOC: EC 10:26 → 6NMEDSUR 14:43
PROVIDERS: ADMIT Student in an Organized Health Care Education/Training Program; ATTEND Student in an Organized Health Care Education/Training Program
DX: R07.9 Chest pain, unspecified (principal); R11.2 Nausea with vomiting, unspecified; R10.9 Unspecified abdominal pain; E87.29 Other acidosis; F10.10 Alcohol abuse, uncomplicated; D75.839 Thrombocytosis, unspecified; E03.9 Hypothyroidism, unspecified; E87.1 Hypo-osmolality and hyponatremia; F17.200 Nicotine dependence, unspecified, uncomplicated; R74.8 Abnormal levels of other serum enzymes; G62.9 Polyneuropathy, unspecified; I10 Essential (primary) hypertension; K76.0 Fatty (change of) liver, not elsewhere classified; N20.0 Calculus of kidney; F41.9 Anxiety disorder, unspecified; F32.A Depression, unspecified; Z79.890 Hormone replacement therapy; Z79.899 Other long term (current) drug therapy; Z82.49 Family history of ischemic heart disease and other diseases of the circulatory system
CPT/HCPCS: 96376 ×2; 96372; 96375 ×2; 96374; 99285; 36415; 93005; 93306; 93351; 93458; 80061; 80053 ×2; 82150; 83690; 84484; 85025 ×2; 85610; 85730; 71046; 74018; 74176; G0378 ×2; C1769; C1894; J2250; J1250; J2270 ×3; J2405; J2003; J1650; J3010; J3490; J1644; Q9967; J2470